=== PATIENT | female | born 1950 | race Caucasian/White ===

== ENCOUNTER 2016-10-17 09:06 | Inpatient (IN) | payer OTHER ==
[2016-10-17 09:15] VITALS: BMI 31.8
--- NOTE | 2016-10-17 09:31 | PDOC ---
History of Present Illness - General Chief Complaint: Lightheaded Stated Complaint: LOW BLOOD SUGAR, DIZZINESS Time Seen by Provider: 10/17/16 09:31 Past History - Past Medical History Allergies/Adverse Reactions: Allergies Allergy/AdvReac Type Severity Reaction Status Date / Time glimepiride Allergy Rash Verified 10/17/16 09:10 Home Medications: Ambulatory Orders Fluoxetine HCl [Prozac -] 40 mg PO DAILY 11/04/12 Metformin HCl [Glucophage] 1,000 mg PO BID 11/04/12 Simvastatin [Zocor -] 40 mg PO HS 11/04/12 Multivitamins [Multivit ([facility] Form[facility])] 1 tab PO DAILY 07/03/14 Amlodipine Besylate [Norvasc -] 5 mg PO DAILY 10/29/14 Levothyroxine [Synthroid -] 100 mcg PO DAILY@0700 #30 tablet 11/02/14 Insulin (Novolog 70/30) [Novolog Mix 70/30 Flexpen -] 6 units SQ BIDI #1 pen Warfarin Sodium [Coumadin] 4 mg PO DAILY 04/02/15 Oxycodone HCl [Roxicodone] 5 mg PO Q8H PRN #5 tablet MDD 3 05/19/16 Anemia: Yes Asthma: No Cancer: No Cardiac Disorders: No CVA: No COPD: No CHF: No Dementia: No Diabetes: No (iddm) GI Disorders: No Disorders: No HTN: Yes Hypercholesterolemia: Yes Kidney Stones: Yes Liver Disease: Yes (ENLARGED LIVER) Psychiatric Problems: Yes (ANXIETY, DEPRESSION, PANIC ATTACKS.) Suicide Attempt (Hx): No Seizures: No Thyroid Disease: No Other medical history: bilat dvt - Surgical History Abdominal Surgery: Yes (lt f.tube cyst) Appendectomy: No Cardiac Surgery: No Cholecystectomy: No Lung Surgery: No Neurologic Surgery: No Orthopedic Surgery: Yes (FOOT, KNEE) - Reproductive History Cervical CA: No Dysfunctional Uterine Bleeding: No Ectopic : No Endometrial CA: No Polycystic Ovaries: No Therapeutic (s) & number: No Tubal Ligation: No - Immunization History Immunization Up to Date: No - Psycho/Social/Smoking Cessation Hx Anxiety: No Suicidal Ideation: No Smoking Status: Yes Smoking History: Never smoked Have you smoked in the past 12 months: No Number of Cigarettes Smoked Daily: 0 If you are a former smoker, when did you quit?: 10yrs Information on smoking cessation initiated: No Hx Alcohol Use: No Drug/Substance Use Hx: No Substance Use Type: None Hx Substance Use Treatment: No *Physical Exam - Vital Signs Last Vital Signs Temp Pulse Resp BP Pulse Ox 98.1 F 82 18 152/81 95 10/17/16 09:11 10/17/16 09:11 10/17/16 09:11 10/17/16 09:11 10/17/16 09:11
--- NOTE | 2016-10-17 09:36 | PDOC ---
History of Present Illness - General Chief Complaint: Lightheaded Stated Complaint: LOW BLOOD SUGAR, DIZZINESS Time Seen by Provider: 10/17/16 09:31 - History of Present Illness Initial Comments: 10/17/16 10:24 Patient is a 65-year-old female with a history of bilateral DVTs, anemia, IDDM, hypertension, bilateral renal calculi, hypothyroidism, enlarged liver, anxiety, depression, panic attacks who presents to ED BIBA. The pt is complaining of dizziness and feeling "off balance" this morning. She put her head on the table and ask family member to call EMS. When they arrived her POC was 145. She states that she had bilateral calf pain on the way to the hospital which resolved. The pt also states that she has difficulty opening her left eye usually in AM that is present for some time. She also had severe headache yesterday, 01/29 that resolved today. The pt denies chest pain, SOB, leg pain, headache, double vision, blurred vision, dizziness, weakness, lightheadedness, LOC. The pt denies N/V, diarrhea, constipation, dysuria, increased frequency, urgency. The pt uses cane. PCP: Lana Rocha [phone] Past History - Past Medical History Allergies/Adverse Reactions: Allergies Allergy/AdvReac Type Severity Reaction Status Date / Time glimepiride Allergy Rash Verified 10/17/16 09:10 Home Medications: Ambulatory Orders Amlodipine Besylate 10 mg PO DAILY 10/17/16 Insulin Aspart Prot/Insuln Asp [Novolog Mix 70-30 Flexpen Syrn] 20 unit SQ BID 10/17/16 Lisinopril/Hydrochlorothiazide [Lisinopril-Hctz 20-12.5 mg Tab] 1 each PO DAILY 10/17/16 Metformin HCl [Metformin HCl ER] 1,000 mg PO BID 10/17/16 Warfarin Na [Coumadin] 5 mg PO DAILY 10/17/16 Anemia: Yes Asthma: No Cancer: No Cardiac Disorders: No CVA: No COPD: No CHF: No Dementia: No Diabetes: No (iddm) GI Disorders: No Disorders: No HTN: Yes Hypercholesterolemia: Yes Kidney Stones: Yes Liver Disease: Yes (ENLARGED LIVER) Psychiatric Problems: Yes (ANXIETY, DEPRESSION, PANIC ATTACKS.) Suicide Attempt (Hx): No Seizures: No Thyroid Disease: No Other medical history: bilat dvt - Surgical History Abdominal Surgery: Yes (lt f.tube cyst) Appendectomy: No Cardiac Surgery: No Cholecystectomy: No Lung Surgery: No Neurologic Surgery: No Orthopedic Surgery: Yes (FOOT, KNEE) - Reproductive History Cervical CA: No Dysfunctional Uterine Bleeding: No Ectopic : No Endometrial CA: No Polycystic Ovaries: No Therapeutic (s) & number: No Tubal Ligation: No - Immunization History Immunization Up to Date: No - Psycho/Social/Smoking Cessation Hx Anxiety: No Suicidal Ideation: No Smoking Status: Yes Smoking History: Never smoked Have you smoked in the past 12 months: No Number of Cigarettes Smoked Daily: 0 If you are a former smoker, when did you quit?: 10yrs Information on smoking cessation initiated: No Hx Alcohol Use: No Drug/Substance Use Hx: No Substance Use Type: None Hx Substance Use Treatment: No Review of Systems - Review of Systems Able to Perform ROS?: Yes Comments:: 10/17/16 10:35 REVIEW OF SYSTEMS CONSTITUTIONAL: Absent: fever, chills, diaphoresis, generalized weakness, malaise, loss of appetite, weight change HEENT: Absent: rhinorrhea, nasal congestion, throat pain, throat swelling, difficulty swallowing, mouth swelling, ear pain, eye pain, visual changes CARDIOVASCULAR: Absent: chest pain, syncope, palpitations, irregular heart rate, lightheadedness , peripheral edema RESPIRATORY: Absent: cough, shortness of breath, dyspnea with exertion, orthopnea, wheezing, stridor, hemoptysis GASTROINTESTINAL: Absent: abdominal pain, abdominal distension, nausea, vomiting, diarrhea, constipation, melena, hematochezia GENITOURINARY: Absent: dysuria, frequency, urgency, hesitancy, hematuria, flank pain, genital pain MUSCULOSKELETAL: swelling in ankles B/L Absent: myalgia, arthralgia, back pain, neck pain SKIN: Absent: rash, itching, pallor NEUROLOGIC: Absent: headache, focal weakness or paresthesias, dizziness, unsteady gait, seizure, mental status changes, bladder or bowel incontinence PSYCHIATRIC: Absent: anxiety, depression, suicidal or homicidal ideation, hallucinations. Is the patient limited Italian proficient: No *Physical Exam - Vital Signs Last Vital Signs Temp Pulse Resp BP Pulse Ox 98.1 F 82 18 152/81 95 10/17/16 09:11 10/17/16 09:11 10/17/16 09:11 10/17/16 09:11 10/17/16 09:11 - Physical Exam Comments: 10/17/16 10:33 GENERAL: The patient is awake, alert, and fully oriented, in no acute distress. HEAD: Normal with no signs of trauma. EYES: extraocular movements intact, sclera anicteric, conjunctiva clear. No ptosis. ENT: Ears normal, nares patent, oropharynx clear without exudates, moist mucous membranes. NECK: Trachea midline, full range of motion, supple. LUNGS: Breath sounds equal, clear to auscultation bilaterally, no wheezes, no crackles, no accessory muscle use. HEART: Regular rate and rhythm, S1, S2 without murmur, rub or gallop. ABDOMEN: Obese, soft, nontender, nondistended, normoactive bowel sounds, no guarding, no rebound, no masses. EXTREMITIES: 2+ pulses, warm, well-perfused,1+ edema around ankles B/L. NEUROLOGICAL: Normal speech, gait not observed. PSYCH: Normal mood, normal affect. SKIN: Warm, dry, normal turgor, no rashes. ED Treatment Course - LABORATORY CBC & Chemistry Diagram: 10/17/16 09:42 10/17/16 09:42 Medical Decision Making - Medical Decision Making 10/17/16 10:36 The pt is a 66 year old female with a significant PMH who presents complaining of dizziness and feeling unsteady. We ordered cardiac profile, CBC, CMP, UA, TSH , BGM. 10/17/16 13:01 Lab results noted: elevated AST, ALT, CK-MB and creatinine kinase, ratio is around 1%, elevated TSH. We called hospitalist and discussed the case. The pt will be admitted to inpatient telemetry for further workup. *DC/Admit/Observation/Transfer Diagnosis at time of Disposition: Syncope, Dehydration - Discharge Dispostion Condition at time of disposition: Good Admit: Yes
[2016-10-17 10:29] LABS: BASOPHIL 1.3 % (0-2.0); EOSINOPHIL 8.7 % (0-4.5); MCH 28.6 pg (25.7-33.7); MCHC 32.6 g/dl (32.0-36.0); MEAN CELL VOLUME 87.9 fl (80-96); MEAN PLT VOLUME 8.5 fl (7.5-11.1); NEUTROPHILS 44.4 % (42.8-82.8); PLATELET COUNT 293 K/MM3 (134-434); RDW 16.4 % (11.6-15.6); WHITE BLOOD COUNT 6.9 K/mm3 (4.0-10.0)
[2016-10-17 10:56] LABS: ALBUMIN 3.9 g/dl (3.4-5.0); BILIRUBIN,TOTAL 0.4 mg/dL (0.2-1.0); CALCIUM 9.1 mg/dL (8.5-10.1); CREATININE 1.2 mg/dL (0.55-1.02); TOT PROT 7.7 g/dl (6.4-8.2)
[2016-10-17 11:08] LABS: THYROID STIMULATING HORMONE 68.5 uIU/ml (0.358-3.74); TROPONIN I 0.02 ng/ml (0.00-0.05)
[2016-10-17 11:16] LABS: INR 1.27 (0.82-1.09)
[2016-10-17] MEDS ORDERED: SODIUM CHLORIDE 1,000 ML IV ONE (11:33)
--- NOTE | 2016-10-17 13:23 | EKG ---
Test Reason : Blood Pressure : / mmHG Vent. Rate : 077 BPM Atrial Rate : 077 BPM P-R Int : 192 ms QRS Dur : 084 ms QT Int : 382 ms P-R-T Axes : 036 -08 032 degrees QTc Int : 432 ms NORMAL SINUS RHYTHM NORMAL ECG WHEN COMPARED WITH ECG OF 09-NOV-2014 11:01, NO SIGNIFICANT CHANGE WAS FOUND Confirmed by SHELLEY RODRIGUEZ MD ([id number]) on 10/17/2016 1:22:53 PM Referred By: Confirmed By:SHELLEY RODRIGUEZ MD
--- NOTE | 2016-10-17 14:20 | HP ---
CHIEF COMPLAINT: Weakness, dizziness PCP: Lana Rocha [phone] HISTORY OF PRESENT ILLNESS: 66 year old female with past medical history of bilateral lower extremity DVTs, anemia, IDDM, hypertension, bilateral renal calculi, hypothyroidism, enlarged liver, anxiety, depression, panic attacks presented to the ED with complaint of weakness, fatigue, dizziness, unsteady (feeling unbalanced) for the last 2 weeks. Pt said symptoms started gradually and has not improved. Pt said she has had slurred speech for weeks/months but she eats and swallows fine. Pt c/o of numbness in hands and feet sometimes and tingling in finger tips. Pt denies any focal weakness in one arm, legs, no blurred vision or double vision. No fever, chills, no nausea or vomiting, no chest pain, palpitation or shortness of breath. C/o hair loss, constipation, loss of energy. Pt complained of burning on urination and vaginal itching. Pt complained of lower ext swelling and b/l calves pain and tenderness. ER course was notable for: (1) IV fluid Normal saline 1 liter, Labs Recent Travel: none PAST MEDICAL HISTORY: bilateral DVTs, anemia, IDDM, hypertension, bilateral renal calculi, hypothyroidism, enlarged liver, anxiety, depression, panic attacks PAST SURGICAL HISTORY: Fallopian tube surgery Social History: Smoking:former smoker 20 pack year, quit 11 year ago Alcohol: none Drugs: none Family History: none contributory Allergies glimepiride Allergy (Verified 10/17/16 09:10) Rash HOME MEDICATIONS: Home Medications Medication Instructions Recorded Amlodipine Besylate 10 mg PO DAILY 10/17/16 Insulin Aspart Prot/Insuln Asp 20 unit SQ BID 10/17/16 [Novolog Mix 70-30 Flexpen Syrn] Lisinopril/Hydrochlorothiazide 1 each PO DAILY 10/17/16 [Lisinopril-Hctz 20-12.5 mg Tab] Metformin HCl [Metformin HCl ER] 1,000 mg PO BID 10/17/16 Warfarin Na [Coumadin] 5 mg PO DAILY 10/17/16 REVIEW OF SYSTEMS CONSTITUTIONAL: generalized weakness, weight gain 14 lbs in last 2 months, Absent: fever, chills, diaphoresis, malaise, loss of appetite, weight change HEENT: Absent: rhinorrhea, nasal congestion, throat pain, throat swelling, difficulty swallowing, mouth swelling, ear pain, eye pain, visual changes CARDIOVASCULAR: peripheral edema Absent: chest pain, syncope, palpitations, irregular heart rate, lightheadedness , RESPIRATORY: Absent: cough, shortness of breath, dyspnea with exertion, orthopnea, wheezing, stridor, hemoptysis GASTROINTESTINAL: Absent: abdominal pain, abdominal distension, nausea, vomiting, diarrhea, constipation, melena, hematochezia GENITOURINARY: Absent: dysuria, frequency, urgency, hesitancy, hematuria, flank pain, genital pain MUSCULOSKELETAL: Absent: myalgia, arthralgia, joint swelling, back pain, neck pain SKIN: hair loss Absent: rash, itching, pallor HEMATOLOGIC/IMMUNOLOGIC: Absent: easy bleeding, easy bruising, lymphadenopathy, frequent infections ENDOCRINE: unexplained weight gain, hairloss Absent: unexplained weight loss, heat intolerance, cold intolerance NEUROLOGIC: Absent: headache, focal weakness or paresthesias, dizziness, unsteady gait, seizure, mental status changes, bladder or bowel incontinence PSYCHIATRIC: anxiety, Absent: depression, suicidal or homicidal ideation, hallucinations. PHYSICAL EXAMINATION GENERAL: Awake, alert, and fully oriented, in no acute distress. HEAD: Normal with no signs of trauma. EYES: Pupils equal, round and reactive to light, extraocular movements intact, sclera anicteric, conjunctiva clear. No lid lag. EARS, NOSE, THROAT: Ears normal, nares patent, oropharynx clear without exudates. Moist mucous membranes. NECK: Normal range of motion, supple without lymphadenopathy, JVD, or masses. LUNGS: Breath sounds equal, clear to auscultation bilaterally. No wheezes, and no crackles. No accessory muscle use. HEART: Regular rate and rhythm, normal S1 and S2 without murmur, rub or gallop. ABDOMEN: Obese, Soft, nontender, not distended, normoactive bowel sounds, no guarding, no rebound, no masses. No hepatomegaly or splenomegaly. MUSCULOSKELETAL: Normal range of motion at all joints. No bony deformities or tenderness. No CVA tenderness. UPPER EXTREMITIES: 2+ pulses, warm, well-perfused. No cyanosis. No clubbing. No peripheral edema. LOWER EXTREMITIES: 2+ pulses, warm, well-perfused. left calf tenderness. trace peripheral edema b/l lower ext NEUROLOGICAL: Slurred speech, Cranial nerves II-XII intact. Normal speech. Normal gait. PSYCHIATRIC: Cooperative. Good eye contact. Appropriate mood and affect. SKIN: Warm, dry, normal turgor, no rashes or lesions noted, normal capillary refill. CBC, BMP 10/17/16 09:42 10/17/16 09:42 Laboratory Tests 10/17/16 09:42 Creat Clearance w eGFR 45.23 Total Bilirubin 0.4 D AST 168 H D ALT 101 H D Alkaline Phosphatase 84 Creatine Kinase 6063 H D CK-MB (CK-2) 58.851 H Troponin I 0.02 Albumin 3.9 TSH 68.50 H ASSESSMENT/PLAN: 66 year old with presented to Ed with complaints of generalized weakness, fatigue, dizziness, unsteady for the last 2 weeks. Patient was found to have elevated CK, transaminitis, elvated TSH. Elevated CPK level likely Myositis flare r/o Rhabdomyolysis Pt has had chronically elevated CK level, seen on prior admission CK 6063 1 liter NS in ED NS at 125ml/h CMP in am f/u rheumatology as outpatient Dizziness likely from dehydration Orthostatic Vital neuro check UA IV fluid NS at 125ml/h keep in telemetry Vitals q4h Hypothyroidism TSH 68.50 Free T4, Free T3 Restart levothyroxine 150mcg po daily Vulvocandidiasis Diflucan 100mg PO Transaminitis Trend LFTS r/o DVT Pt has left calf tenderness, positive don signs US b/l lower ext Pt is on warfarin 5mg po daily for history of bilateral but non compliant Will likely substitute for Lovenox 1mg/kg q12h Diabetes Blood Sugar 161 on admission HGA1C BGM AC HS hold metformin and insulin 70/30 HTN Lisinopril-Hctz 20-12.5 mg Tab Amlodipine 10mg Po qd Anemia Hgb 11.4, close to baseline repeat in am FEN Fluid: NS at 125ml/h Electrolytes: repeat in am Nutrition: no abnormalities DVT prophylaxis: Lovenox SQ Disposition: will admit toTelemetry pending Visit type - Emergency Visit Emergency Visit: Yes ED Registration Date: 10/17/16 Care time: The patient presented to the Emergency Department on the above date and was hospitalized for further evaluation of their emergent condition. - New Patient This patient is new to me today: Yes Date on this admission: 10/19/16 - Critical Care Critical Care patient: No
[2016-10-17] MEDS: SODIUM CHLORIDE 1,000 ML IV SCH (14:41)
--- NOTE | 2016-10-17 15:05 | PN ---
Teaching Attending Note Name of Resident: Lenard Bnauelos ATTENDING PHYSICIAN STATEMENT I saw and evaluated the patient. I reviewed the resident's note and discussed the case with the resident. I agree with the resident's findings and plan as documented. SUBJECTIVE: 66 year old female that presents today c/o 2 week history of dizziness, generalized weakness and feeling '' off balance ''. In the ER noted to have elevated TSH and CPK levels. Review of records shows that she has had similar symptoms before and no cause was identified . Denies fever . OBJECTIVE: Vital Signs Temperature 98.1 F 10/17/16 09:11 Pulse Rate 64 10/17/16 12:05 Respiratory Rate 20 10/17/16 12:05 Blood Pressure 127/59 10/17/16 12:05 O2 Sat by Pulse Oximetry (%) 96 10/17/16 12:05 Abnormal Lab Results 10/17/16 10/17/16 10/17/16 09:42 09:42 Unknown RDW 16.4 H D Eosinophils % 8.7 H INR 1.27 H Creatinine 1.2 H D Random Glucose 161 H D AST 168 H D ALT 101 H D Creatine Kinase 6063 H D CK-MB (CK-2) 58.851 H TSH 68.50 H LUNGS: Breath sounds equal, clear to auscultation bilaterally. No wheezes, and no crackles. No accessory muscle use. HEART: Regular rate and rhythm, normal S1 and S2 without murmur, rub or gallop. ABDOMEN: Obese, Soft, nontender, not distended, normoactive bowel sounds, no guarding, no rebound, no masses. No hepatomegaly or splenomegaly. MUSCULOSKELETAL: Normal range of motion at all joints. No bony deformities or tenderness. No CVA tenderness. UPPER EXTREMITIES: 2+ pulses, warm, well-perfused. No cyanosis. No clubbing. No peripheral edema. LOWER EXTREMITIES: 2+ pulses, warm, well-perfused. left calf tenderness. trace peripheral edema b/l lower ext ASSESSMENT AND PLAN: 1. Generalized weakness and dizziness possibly dehydration - observe - neuro chesks - orthostatic VS - IVF - UA 2. Elevated CPK levels and LFT - chronic , fluctuating . R/o myositis, r/o CTD - hydrate IVF , monitor CR - O/P f/u
[2016-10-17] MEDS ORDERED: LEVOTHYROXINE NA 50 MCG TABLET (FP) PO ONE ×2 (15:27→16:00)
[2016-10-17] MEDS ORDERED: FLUCONAZOLE 50 MG TABLET PO ONE (16:00)
[2016-10-17 16:19] LABS: FREE T4 0.19 ng/dl (0.76-1.46)
--- NOTE | 2016-10-17 16:27 | PDOC ---
Attending Attestation - Resident Resident Name: Doris Gutiérrez - ED Attending Attestation I have performed the following: I have examined & evaluated the patient, The case was reviewed & discussed with the resident, I agree w/resident's findings & plan - HPI HPI: 10/17/16 20:35 see below - Physicial Exam PE: 10/17/16 20:35 see below - Medical Decision Making 10/17/16 20:30 66y F hx of dvts on a/c, anemia, iddm, htn, thyroid disease, presents to ED with complaint of feeling lightheaded/dizzy/off balance, she put her head down and may have synocopized. she told her friend to call EMS when they arrived. BGM was normal per EMS. pt also had complaints of leg pain which resolved by th time she was evaluated. no cp, sob, infectious complaints. pts exam unremarkble , pts labs noted for mild bump in cr, lfts, ck also elevated, --> dehydration pt was admitted for dehdyratin/syncope for hydration and further monitoring. Heart Score/ECG Review - ECG Impressions Comment:: 10/17/16 20:33 EKG performed at 10:49 Sinus rhythm, Rate of [address] changes suggestive of acute ischemia normal axis normal r wave progression
[2016-10-17] MEDS: amLODIPine BESYLATE 10 MG TABLET (FP) PO SCH (18:38)
[2016-10-17] MEDS: ENOXAPARIN NA (PORCINE) 80 MG/0.8 ML DISP.SYRIN SQ SCH (18:39)
[2016-10-17] MEDS ORDERED: HEPARIN NA (PORCINE) 5,000 UNITS/ML 1ML VIAL SQ SCH (22:00)
[2016-10-18] MEDS: SODIUM CHLORIDE 1,000 ML IV SCH (00:18)
[2016-10-18] MEDS ORDERED: ALBUTEROL SO4 0.083% IH SOL 2.5 MG/3 ML VIAL.NEB. NEB ONE (01:59)
--- NOTE | 2016-10-18 01:59 | HOSP ---
[id number] pt was c/o sob. Pt states over the last hour or so she has had a stuffy nose and has began mouth breathing and felt like she had to cough but had minimal green sputum production. Pt is saturating at 100% on 2L NC. Lungs are CTA B/L. A/P Difficulty in breathing -Alb neb, nasal spray, decreased fluids to 75ml/hr Physical Examination Vital Signs: Vital Signs Temperature 97.5 F L 10/18/16 01:56 Pulse Rate 62 10/18/16 01:56 Respiratory Rate 18 10/18/16 01:56 Blood Pressure 115/65 10/18/16 01:56 O2 Sat by Pulse Oximetry (%) 95 10/17/16 22:00 Visit type - Emergency Visit Emergency Visit: Yes ED Registration Date: 10/17/16 Care time: The patient presented to the Emergency Department on the above date and was hospitalized for further evaluation of their emergent condition. - New Patient This patient is new to me today: Yes Date on this admission: 10/19/16 - Critical Care Critical Care patient: No
[2016-10-18] MEDS ORDERED: SODIUM CHLORIDE 1,000 ML IV SCH (02:00)
[2016-10-18] MEDS: SODIUM CHLORIDE NASAL SPRAY 44 ML BOTTLE NS PRN ×2 (02:48→10:04)
[2016-10-18] MEDS: ENOXAPARIN NA (PORCINE) 80 MG/0.8 ML DISP.SYRIN SQ SCH ×2 (05:37→17:50)
[2016-10-18 09:20] LABS: ALBUMIN 3.6 g/dl (3.4-5.0); CALCIUM 8.6 mg/dL (8.5-10.1)
[2016-10-18 09:22] LABS: BILIRUBIN,TOTAL 0.4 mg/dL (0.2-1.0); CREATININE 1.1 mg/dL (0.55-1.02); TOT PROT 7.2 g/dl (6.4-8.2)
[2016-10-18 09:47] LABS: MAGNESIUM 1.7 mg/dL (1.8-2.4); PHOSPHOROUS 2.9 mg/dL (2.5-4.9)
[2016-10-18 09:59] LABS: TROPONIN I 0.02 ng/ml (0.00-0.05)
[2016-10-18] MEDS ORDERED: LISINOPRIL 20 MG TABLET (FP) PO SCH (10:00)
[2016-10-18] MEDS ORDERED: HYDROCHLOROTHIAZIDE 12.5 MG CAPSULE (FP) PO SCH (10:00)
[2016-10-18] MEDS: amLODIPine BESYLATE 10 MG TABLET (FP) PO SCH (10:04)
[2016-10-18] MEDS: INSULIN SLIDING SCALE (NOVOLOG) 1 VIAL SQ SCH ×2 (11:17→16:50)
--- NOTE | 2016-10-18 13:26 | PN ---
Teaching Attending Note Name of Resident: Lenard Banuelos ATTENDING PHYSICIAN STATEMENT I saw and evaluated the patient. I reviewed the resident's note and discussed the case with the resident. I agree with the resident's findings and plan as documented. SUBJECTIVE: seen and evaluated at the bedside OBJECTIVE: states she feels much better today and back at baseline ASSESSMENT AND PLAN: 66 year old female with past medical history of bilateral lower extremity DVTs, anemia, IDDM, hypertension, bilateral renal calculi, hypothyroidism, enlarged liver, anxiety, depression, panic attacks presented to the ED with complaint of weakness, fatigue, dizziness, unsteady (feeling unbalanced) for the last 2 weeks -states she feels much better today and back at baseline after hydration with IVF -symptoms likely due to dehydration and hypothyroidism -pt admits to being non-compliant with meds an was counselled at length -has chronically elevated CPK and LFT's which trended down; likely some form of myositis and pt is to follow up with her PMD and physician practice market manager as an outpatient
[2016-10-18 13:57] LABS: MCH 28.4 pg (25.7-33.7); MCHC 32.1 g/dl (32.0-36.0); MEAN CELL VOLUME 88.6 fl (80-96); MEAN PLT VOLUME 9.5 fl (7.5-11.1); PLATELET COUNT 297 K/MM3 (134-434); RDW 16.2 % (11.6-15.6); WHITE BLOOD COUNT 6.3 K/mm3 (4.0-10.0)
[2016-10-18 15:08] VITALS: BP 114/75; PULSE 80; TEMP 98.2
[2016-10-18 15:40] LABS: URINE APPEARANCE CLEAR; URINE BILIRUBIN NEGATIVE (NEGATIVE); URINE COLOR LTYELLOW; URINE GLUCOSE (UA) 3+ (NEGATIVE); URINE KETONE TRACE (NEGATIVE); URINE LEUK ESTERASE NEGATIVE (NEGATIVE); URINE NITRITE NEGATIVE (NEGATIVE); URINE PROTEIN NEGATIVE (NEGATIVE); URINE UROBILINOGEN NEGATIVE E.U./dl (0.2-1.0)
--- NOTE | 2016-10-18 15:51 | DS ---
Physical Exam: SUBJECTIVE: Patient seen and examined Pt is in bed, comfortable No s/s of distress No fever or chills no dizziness or confusion No focal neurological deficits OBJECTIVE: Vital Signs Period Temp Pulse Resp BP Sys/Estrada Pulse Ox Last 24 Hr 97.5 F-98.3 F 62-84 16-20 114-149/65-83 95-95 PHYSICAL EXAM GENERAL: The patient is awake, alert, and fully oriented, in no acute distress. HEAD: Normal with no signs of trauma. EYES: PERRL, extraocular movements intact, sclera anicteric, conjunctiva clear. ENT: Ears normal, nares patent, oropharynx clear without exudates, moist mucous membranes. NECK: Trachea midline, full range of motion, supple. LUNGS: Breath sounds equal, clear to auscultation bilaterally, no wheezes, no crackles, no accessory muscle use. HEART: Regular rate and rhythm, S1, S2 without murmur, rub or gallop. ABDOMEN: Soft, nontender, nondistended, normoactive bowel sounds, no guarding, no rebound, no hepatosplenomegaly, no masses. EXTREMITIES: 2+ pulses, warm, well-perfused, no edema. NEUROLOGICAL: Cranial nerves II through XII grossly intact. slurred speech, gait not observed. PSYCH: Normal mood, normal affect. SKIN: Warm, dry, normal turgor, no rashes or lesions noted. LABS Laboratory Results - last 24 hr 10/17/16 10/18/16 10/18/16 21:33 05:31 08:15 WBC 6.3 RBC 4.00 Hgb 11.4 Hct 35.4 MCV 88.6 MCHC 32.1 RDW 16.2 H Plt Count 297 MPV 9.5 D Sodium Potassium Chloride Carbon Dioxide Anion Gap BUN Creatinine Creat Clearance w eGFR POC Glucometer 125 138 Random Glucose Calcium Phosphorus Magnesium Total Bilirubin AST ALT Alkaline Phosphatase Creatine Kinase Troponin I Total Protein Albumin 10/18/16 10/18/16 10/18/16 08:15 08:15 08:15 WBC RBC Hgb Hct MCV MCHC RDW Plt Count MPV Sodium 141 Potassium 3.8 Chloride 103 Carbon Dioxide 28 Anion Gap 10 BUN 15 Creatinine 1.1 H Creat Clearance w eGFR 50.01 POC Glucometer Random Glucose 168 H Calcium 8.6 Phosphorus Cancelled 2.9 Magnesium Cancelled 1.7 L D Total Bilirubin 0.4 AST 133 H D ALT 85 H Alkaline Phosphatase 66 D Creatine Kinase 4523 H D Cancelled Troponin I 0.02 Cancelled Total Protein 7.2 Albumin 3.6 10/18/16 11:06 WBC RBC Hgb Hct MCV MCHC RDW Plt Count MPV Sodium Potassium Chloride Carbon Dioxide Anion Gap BUN Creatinine Creat Clearance w eGFR POC Glucometer 148 Random Glucose Calcium Phosphorus Magnesium Total Bilirubin AST ALT Alkaline Phosphatase Creatine Kinase Troponin I Total Protein Albumin HOSPITAL COURSE: Date of Admission:10/17/16 6 year old female with past medical history of bilateral lower extremity DVTs, anemia, IDDM, hypertension, bilateral renal calculi, hypothyroidism, enlarged liver, anxiety, depression, panic attacks presented to the ED with complaint of weakness, fatigue, dizziness, unsteady (feeling unbalanced) for the last 2 weeks. Pt said symptoms started gradually and has not improved. Pt said she has had slurred speech for weeks/months but she eats and swallows fine. Pt c/o of numbness in hands and feet sometimes and tingling in finger tips. Pt denies any focal weakness in one arm, legs, no blurred vision or double vision. No fever, chills, no nausea or vomiting, no chest pain, palpitation or shortness of breath. C/o hair loss, constipation, loss of energy. Pt complained of burning on urination and vaginal itching. Pt complained of lower ext swelling and b/l calves pain and tenderness. ER course was notable for: (1) IV fluid Normal saline 1 liter, Labs 66 year old with presented to Ed with complaints of generalized weakness, fatigue, dizziness, unsteady for the last 2 weeks. Patient was found to have elevated CK, transaminitis, elvated TSH. Pt has Elevated CPK level likely Myositis flare r/o Rhabdomyolysis, Pt has had chronically elevated CK level, seen on prior admission. CK 6063. 1 liter NS in ED. NS at 125ml/h. CK is trending down. Pt may need further work up including possible muscle biopsy. Pt will need to follow up with PCP. F/u rheumatology as outpatient. Pt had Dizziness likely from dehydration. IV fluid NS at 125ml/h. After a night of fluid resuscitation, pt felt better, no more weakness and dizziness. Pt has Hypothyroidism. TSH 68.50, Free T4 is 19, Restart levothyroxine 150mcg po daily. Pt had Vulvocandidiasis, we gave Diflucan 100mg PO once. Transaminitis, LFTs trending down, no abdominal pain, consider outpatinet hepatitis panel and GI follow up. r/o DVT. Pt had left calf tenderness, positive don signs on admission. She no longer have calf pain and or tenderness. US b/l lower ext was negative for DVT. Pt is on warfarin 5mg po daily for history of bilateral DVT. Pt is follow up with PCP to have her INR check and coumadin adjusted. Diabetes. Her blood sughar has been controlled while she is here in the hospital. Resume Home meds metformin and insulin 70/ 30. HTN. resume Lisinopril-Hctz 20-12.5 mg Tab and Amlodipine 10mg Po qd. Date of Discharge: 10/18/16 Minutes to complete discharge: 45 Discharge Summary Reason For Visit: DIZZINESS,SYNCOPE,DEHYDRATION Current Active Problems Abnormal CPK (Acute) Breast adenoma (Acute) Dehydration (Acute) Elevated creatine kinase (Acute) Syncope (Acute) Condition: Good - Instructions Diet, Activity, Other Instructions: Discharge Home resume home medication resume diabetic diet Restart levothyroxine 150mg PO daily Follow up with Primary care physician within 1 week Follow up with [employer] [facility] Dr. Lianna Bell Follow up with Dr Barksdale within 1-2 week You need to check your INR on Sunday10/23/2016 Follow up with [facility] Dr Roberts for your elevated liver enzymes Referrals: Ashok Barksdale MD [Staff Physician] - Lyn Enamorado MD [Primary Care Provider] - Lianna Bell MD [Staff Physician] - Ruthie Roberts MD [Staff Physician] - Disposition: HOME - Home Medications Comprehensive Discharge Medication List: Ambulatory Orders Amlodipine Besylate 10 mg PO DAILY 10/17/16 Insulin Aspart Prot/Insuln Asp [Novolog Mix 70-30 Flexpen Syrn] 20 unit SQ BID 10/17/16 Lisinopril/Hydrochlorothiazide [Lisinopril-Hctz 20-12.5 mg Tab] 1 each PO DAILY 10/17/16 Metformin HCl [Metformin HCl ER] 1,000 mg PO BID 10/17/16 Warfarin Na [Coumadin] 5 mg PO DAILY 10/17/16 This patient is new to me today: No Emergency Visit: Yes ED Registration Date: 10/17/16 Care time: The patient presented to the Emergency Department on the above date and was hospitalized for further evaluation of their emergent condition. Critical Care patient: No - Discharge Referral Referred to [facility] No
[2016-10-18 15:58] LABS: URINE BLOOD 1+ (NEGATIVE)
[2016-10-18 16:19] LABS: URINE MUCUS RARE; URINE RBC 2 /hpf (0-3); URINE WBC 1 /hpf (3-5)
== END 2016-10-18 18:15 | disposition home or self-care (01) | DRG 422 ==
LOC: JER 09:06 → JERBED 12:14 → J4S 18:00
PROVIDERS: ADMIT Internal Medicine; ATTEND Internal Medicine
DX: E86.0 Dehydration (principal); R55 Syncope and collapse; R42 Dizziness and giddiness; E03.9 Hypothyroidism, unspecified; R74.0 Nonspecific elevation of levels of transaminase and lactic acid dehydrogenase [LDH]; E11.9 Type 2 diabetes mellitus without complications; I10 Essential (primary) hypertension; D64.9 Anemia, unspecified; Z79.4 Long term (current) use of insulin
CPT/HCPCS: 36415; 80053; 81003; 81015; 82550; 82553; 83036; 83735; 84100; 84252; 84439; 84443; 84481; 84484; 85025; 85027; 85610; 93005; 93010; 93970-TC; 94640; 99285-25

== ENCOUNTER 2016-12-13 12:15 | Observation (INO) | payer OTHER ==
[2016-12-13 12:38] VITALS: BMI 31.8
--- NOTE | 2016-12-13 13:11 | PDOC ---
History of Present Illness - History of Present Illness Initial Comments: 12/13/16 13:13 The patient is a 66 year old female, with a significant past medical history of bilateral DVTs (on Coumadin), anemia, IDDM, hypertension, who presents to the emergency department from her PCP office for midsternal chest pain, generalized weakness for the past few days with new onset of fever 2 days ago. She describes her chest pain as pressure localized to her midsternal region. She denies pain with inspiration. She states she has been sleeping for most of the past 48 hours. She reports having a subjective fever 2 days ago and states she has been experiencing chills since. The patient also reports bilateral lower extremity swelling a couple of days ago which she states has resolved on its own. The patient admits to spending time with her grandchildren recently whom she reports have been sick recently. She denies shortness of breath, headache and dizziness. She denies nausea, vomit , diarrhea and constipation. She denies dysuria, frequency, urgency and hematuria. Allergies: glimepiride Past surgical history: laparoscopic cyst removal Social history: Pt denies toxic habits PCP -PABLO Justin ([phone]) <Angelia Hess - Last Filed: 12/13/16 15:45> <Francisca Shin - Last Filed: 12/13/16 16:00> - General Chief Complaint: Chest Pain Stated Complaint: CHEST PAIN Time Seen by Provider: 12/13/16 12:38 Past History <Angelia Hess - Last Filed: 12/13/16 15:45> - Past Medical History Anemia: Yes Asthma: No Cancer: No Cardiac Disorders: No CVA: No COPD: No CHF: No Dementia: No Diabetes: No (iddm) GI Disorders: No Disorders: No HTN: Yes Hypercholesterolemia: Yes Kidney Stones: Yes Liver Disease: Yes (ENLARGED LIVER) Psychiatric Problems: Yes (ANXIETY, DEPRESSION, PANIC ATTACKS.) Suicide Attempt (Hx): No Seizures: No Thyroid Disease: No - Surgical History Abdominal Surgery: Yes (lt f.tube cyst) Appendectomy: No Cardiac Surgery: No Cholecystectomy: No Lung Surgery: No Neurologic Surgery: No Orthopedic Surgery: Yes (FOOT, KNEE) - Reproductive History Cervical CA: No Dysfunctional Uterine Bleeding: No Ectopic : No Endometrial CA: No Polycystic Ovaries: No Therapeutic (s) & number: No Tubal Ligation: No - Immunization History Immunization Up to Date: No - Psycho/Social/Smoking Cessation Hx Anxiety: No Suicidal Ideation: No Smoking Status: Yes Smoking History: Never smoked Have you smoked in the past 12 months: No Number of Cigarettes Smoked Daily: 0 If you are a former smoker, when did you quit?: 10yrs Information on smoking cessation initiated: No Hx Alcohol Use: No Drug/Substance Use Hx: No Substance Use Type: None Hx Substance Use Treatment: No <Francisca Shin - Last Filed: 12/13/16 16:00> - Past Medical History Allergies/Adverse Reactions: Allergies Allergy/AdvReac Type Severity Reaction Status Date / Time glimepiride Allergy Rash Verified 12/13/16 12:35 Home Medications: Ambulatory Orders Amlodipine Besylate 10 mg PO DAILY 10/17/16 Insulin Aspart Prot/Insuln Asp [Novolog Mix 70-30 Flexpen Syrn] 20 unit SQ BID 10/17/16 Lisinopril/Hydrochlorothiazide [Lisinopril-Hctz 20-12.5 mg Tab] 1 each PO DAILY 10/17/16 Metformin HCl [Metformin HCl ER] 1,000 mg PO BID 10/17/16 Warfarin Na [Coumadin -] 5 mg PO DAILY 10/17/16 Levothyroxine [Synthroid -] 150 mcg PO DAILY #30 tablet 10/18/16 Atorvastatin Ca [Lipitor] 40 mg PO HS 12/13/16 Ferrous Sulfate 325 mg PO DAILY 12/13/16 Gabapentin 300 mg PO TID 12/13/16 Review of Systems - Review of Systems Able to Perform ROS?: Yes Comments:: 12/13/16 13:15 GENERAL/CONSTITUTIONAL: (+) subjective fever, chills and generalized weakness. HEAD, EYES, EARS, NOSE AND THROAT: No change in vision. No ear pain or discharge. No sore throat. CARDIOVASCULAR: (+) chest pain. No shortness of breath. RESPIRATORY: No cough, wheezing, or hemoptysis. GASTROINTESTINAL: No nausea, vomiting, diarrhea or constipation. GENITOURINARY: No dysuria, frequency, or change in urination. MUSCULOSKELETAL: No joint or muscle swelling or pain. No neck or back pain. SKIN: No rash NEUROLOGIC: No headache, vertigo, loss of consciousness, or change in strength/ sensation. ENDOCRINE: No increased thirst. No abnormal weight change. HEMATOLOGIC/LYMPHATIC: No anemia, easy bleeding, or history of blood clots. ALLERGIC/IMMUNOLOGIC: No hives or skin allergy. <Angelia Hess - Last Filed: 12/13/16 15:45> *Physical Exam - Vital Signs Last Vital Signs Temp Pulse Resp BP Pulse Ox 98.1 F 94 H 22 139/103 100 12/13/16 12:35 12/13/16 12:35 12/13/16 12:35 12/13/16 12:35 12/13/16 12:35 - Physical Exam Comments: 12/13/16 13:16 GENERAL: Awake, alert, and fully oriented, in no acute distress HEAD: No signs of trauma EYES: PERRLA, EOMI, sclera anicteric, conjunctiva clear ENT: Auricles normal inspection, hearing grossly normal, nares patent, oropharynx clear without exudates. Moist mucosa NECK: Normal ROM, supple, no lymphadenopathy, JVD, or masses LUNGS: Breath sounds equal, clear to auscultation bilaterally. No wheezes, and no crackles HEART: Regular rate and rhythm, normal S1 and S2, no murmurs, rubs or gallops ABDOMEN: Soft, nontender, normoactive bowel sounds. No guarding, no rebound. No masses EXTREMITIES: (+) bilateral lower extremity edema (nonpitting). Normal range of motion. No clubbing or cyanosis. No cords, erythema, or tenderness NEUROLOGICAL: Normal speech, AAOx3 SKIN: Warm, Dry, normal turgor, no rashes or lesions noted. <Angelia Hess - Last Filed: 12/13/16 15:45> - Vital Signs Last Vital Signs Temp Pulse Resp BP Pulse Ox 98.1 F 94 H 22 139/103 100 12/13/16 12:35 12/13/16 12:35 12/13/16 12:35 12/13/16 12:35 12/13/16 12:35 <Francisca Shin - Last Filed: 12/13/16 16:00> Heart Score/ECG Review - ECG Intrepretation Comment:: 12/13/16 13:17 ECG was read by Dr. Shin at 12:32 Impression: Normal sinus rhythm Vent Rate: 88 bpm The ECG was unchanged when compared to an ECG from 10/17/16 <Angelia Hess - Last Filed: 12/13/16 15:45> ED Treatment Course - LABORATORY CBC & Chemistry Diagram: 12/13/16 13:20 12/13/16 13:20 - RADIOLOGY Radiograph Interpretation: 12/13/16 15:32 CXR was read by Dr. Sanchez at 14:40 Impression: No acute pathology. No change of an adverse nature since 11/07/14. <Angelia Hess - Last Filed: 12/13/16 15:45> - LABORATORY CBC & Chemistry Diagram: 12/13/16 13:20 12/13/16 13:20 - RADIOLOGY Radiology Studies Ordered: Category Date Time Status CHEST PA & LAT [RAD] Stat Radiology 12/13/16 13:07 Ordered <Francisca Shin - Last Filed: 12/13/16 16:00> Medical Decision Making - Medical Decision Making 12/13/16 15:37 PABLO Houser was called at the office ([phone]) requesting for doctor to doctor consult regarding this patient. I have discussed the plan for admission of this patient and the CH[facility] SPLITTER agrees for admission to the [facility] at this time. Lana Rocha reports the patient has poor follow-up and is non-compliant with her hypothyroid medication. <Angelia Hess - Last Filed: 12/13/16 15:45> - Medical Decision Making 12/13/16 13:08 66 yo with h/o DM HTN, anemia, h/o bilat dvt on coumadin hypothyroid, here with c/o chest pain and chills, body achees. pt states had a fever 2 days ago after sick contact of neices and nephews with febrile illness. now fever resolved, has had increased sleepiness, chills aches, and now having chest pain. went to primary doctors today, told to come to ED. no couhg. no n/v no urinary complaints. has had recent leg swelling, which spont resolved. chest pain pressure like no radiation, constant, not pleuritic. on exam awake alert NAD lungs clear bilaterally heart RRR no mr/g. abd soft NT no cva tenderness. leg wwp nonpitting edema. 2+ pulses bilaterally. differential: cp, fever : infectious such as pna, viral syndrome, renal failure , pe due to h/o dvt although on coumadin will check INR. uti, plan ekg trop r/o acs, cxr ua pain control tylenol possible ct pending coumadin/ INR. <Francisca Shin - Last Filed: 12/13/16 16:00> *DC/Admit/Observation/Transfer - Attestations Scribe Attestion: 12/13/16 13:19 Documentation prepared by Angelia Hess, acting as medical surgery nurse for Francisca Shin MD, <Angelia Hess - Last Filed: 12/13/16 15:45> - Discharge Dispostion Admit: Yes <Francisca Shin - Last Filed: 12/13/16 16:00> Diagnosis at time of Disposition: Chest pain - Referrals Referrals: Nargis Pedro [Primary Care Provider] -
[2016-12-13] MEDS ORDERED: ACETAMINOPHEN 325 MG TABLET (FP) PO ONE (13:12)
[2016-12-13 13:26] LABS: MCH 29.1 pg (25.7-33.7); MCHC 33.2 g/dl (32.0-36.0); MEAN CELL VOLUME 87.8 fl (80-96); MEAN PLT VOLUME 8.9 fl (7.5-11.1); PLATELET COUNT 202 K/MM3 (134-434); RDW 15.5 % (11.6-15.6); WHITE BLOOD COUNT 7.1 K/mm3 (4.0-10.0)
[2016-12-13] MEDS ORDERED: ACETAMINOPHEN 325 MG TABLET (FP) ONE (13:48)
[2016-12-13 13:57] LABS: ALBUMIN 3.7 g/dl (3.4-5.0); CALCIUM 8.7 mg/dL (8.5-10.1); CREATININE 1.2 mg/dL (0.55-1.02)
[2016-12-13 13:58] LABS: BILIRUBIN,TOTAL 0.5 mg/dL (0.2-1.0); TOT PROT 7.5 g/dl (6.4-8.2)
[2016-12-13 14:10] LABS: TROPONIN I < 0.02 ng/ml (0.00-0.05)
[2016-12-13 14:14] LABS: INR 1.23 (0.82-1.09); PROTHROMBIN TIME (PATIENT) 13.6 SEC (9.98-11.88)
[2016-12-13 14:40] LABS: PLATELET ESTIMATE ADEQUATE (NORMAL)
--- NOTE | 2016-12-13 17:08 | HP ---
CHIEF COMPLAINT: " Central chest pain x 1 day" PCP:-PABLO Justin ([phone]) HISTORY OF PRESENT ILLNESS: Patient is a 66 year old female with siginificant past medical history of bilateral lower extremity DVTs on warfarin, anemia, IDDM, hypertension, Hyperlipidemia, bilateral renal calculi, hypothyroidism, enlarged liver, anxiety , depression, panic attacks, DUB, left adrenal mass came in to the ED with the chief complaints of central chest pain x 1 day. As per the patient, she was apparently well two days ago, when she got fever for 1 day, Tmax 102 F, associated with chills, rigors, sweating which resolved after she took tylenol. Chest pain started this morning after she ate her breakfast, a cup of coffee and a piece of toast. It started suddenly, located in the center of the chest, pressure type, 8/10 in intensity, non radiating, no aggravating or relieving factors. Never had this symptom before. Denies any sick contact, runny nose, cough, sore throat, sob, palpitations, abdominal pain, nausea or vomiting. Bowel/Bladder habit normal. No urinary symptoms. Sleep/Appetite normal. Normally walks with a cane started using it since a year after she had DVT in lower legs. Call was placed at her doctors office and faxed her recent medical records. Paper attached in the chart. ER course was notable for: (1) Afebrile, hemodynamically stable, elevated transaminitis, troponin x 1 negative (2) EKG: Normal sinus rhythm. (3) Tylenol. Recent Travel: none PAST MEDICAL HISTORY:bilateral lower extremity DVTs on warfarin, anemia, IDDM, hypertension, Hyperlipidemia, bilateral renal calculi, hypothyroidism, enlarged liver, anxiety, depression, panic attacks, DUB, left adrenal mass, PAST SURGICAL HISTORY: Stent placed in the kidney and removed in 2014 Social History: Smoking: Smoked for 10 years, 1 pack/day ; Left 10 years Alcohol: occasional Drugs: Denies Family History: Daughter was diagnosed with Leukemia at the age of 6 years; Sister has a h/o breast cancer. Father-H/O colon cancer. Allergies glimepiride Allergy (Verified 12/13/16 12:35) Rash HOME MEDICATIONS: Home Medications Medication Instructions Recorded Amlodipine Besylate 10 mg PO DAILY 10/17/16 Insulin Aspart Prot/Insuln Asp 20 unit SQ BID 10/17/16 [Novolog Mix 70-30 Flexpen Syrn] Lisinopril/Hydrochlorothiazide 1 each PO DAILY 10/17/16 [Lisinopril-Hctz 20-12.5 mg Tab] Metformin HCl [Metformin HCl ER] 1,000 mg PO BID 10/17/16 Warfarin Na [Coumadin -] 5 mg PO DAILY 10/17/16 Levothyroxine [Synthroid -] 150 mcg PO DAILY #30 tablet 10/18/16 Atorvastatin Ca [Lipitor] 40 mg PO HS 12/13/16 Ferrous Sulfate 325 mg PO DAILY 12/13/16 Gabapentin 300 mg PO TID 12/13/16 REVIEW OF SYSTEMS CONSTITUTIONAL: Present: fever, chills, diaphoresis, generalized weakness, malaise Absent: , loss of appetite, weight change HEENT: Absent: rhinorrhea, nasal congestion, throat pain, throat swelling, difficulty swallowing, mouth swelling, ear pain, eye pain, visual changes CARDIOVASCULAR: Present: chest pain, Absent: syncope, palpitations, irregular heart rate, lightheadedness, peripheral edema RESPIRATORY: Absent: cough, shortness of breath, dyspnea with exertion, orthopnea, wheezing, stridor, hemoptysis GASTROINTESTINAL: Absent: abdominal pain, abdominal distension, nausea, vomiting, diarrhea, constipation, melena, hematochezia GENITOURINARY: Absent: dysuria, frequency, urgency, hesitancy, hematuria, flank pain, genital pain MUSCULOSKELETAL: Absent: myalgia, arthralgia, joint swelling, back pain, neck pain SKIN: Absent: rash, itching, pallor HEMATOLOGIC/IMMUNOLOGIC: Absent: easy bleeding, easy bruising, lymphadenopathy, frequent infections ENDOCRINE: Absent: unexplained weight gain, unexplained weight loss, heat intolerance, cold intolerance NEUROLOGIC: Absent: headache, focal weakness or paresthesias, dizziness, unsteady gait, seizure, mental status changes, bladder or bowel incontinence PSYCHIATRIC: Absent: anxiety, depression, suicidal or homicidal ideation, hallucinations. PHYSICAL EXAMINATION GENERAL: Moderately obese female, Awake, alert, and fully oriented, in no acute distress. HEAD: Normal with no signs of trauma. EYES: Pupils equal, round and reactive to light, extraocular movements intact, sclera anicteric, conjunctiva clear. No lid lag. EARS, NOSE, THROAT: Ears normal, nares patent, oropharynx clear without exudates. Moist mucous membranes. NECK: Normal range of motion, supple without lymphadenopathy, JVD, or masses. LUNGS: Breath sounds equal, clear to auscultation bilaterally. No wheezes, and no crackles. No accessory muscle use. HEART: Regular rate and rhythm, normal S1 and S2 without murmur, rub or gallop. ABDOMEN: Soft, nontender, not distended, normoactive bowel sounds, no guarding, no rebound, no masses. No hepatomegaly or splenomegaly. MUSCULOSKELETAL: Normal range of motion at all joints. No bony deformities or tenderness. No CVA tenderness. UPPER EXTREMITIES: 2+ pulses, warm, well-perfused. No cyanosis. No clubbing. No peripheral edema. LOWER EXTREMITIES: 2+ pulses, warm, well-perfused. No calf tenderness. No peripheral edema. NEUROLOGICAL: Cranial nerves II-XII intact. Normal speech. Gait not observed. PSYCHIATRIC: Cooperative. Good eye contact. Appropriate mood and affect. SKIN: Warm, dry, normal turgor, no rashes or lesions noted, normal capillary refill. ASSESSMENT/PLAN: Patient is a 66 years old female with significant past medical history of 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 # Chest pain-R/O ACS Patient presented with Chest pressure in the center x 1 day, never had this symptom before. On arrival, patient was Afebrile, hemodynamically stable, troponin x 1 negative As per ED physician, patient was offered to do a CTA to r/o PE since she came in with chest pain and has a h/o DVT on warfarin (non compliant) but patient refused. EKG: normal Sinus rhythm CXR: no acute pathology Placed on observation in Tele Continuous cardiac monitoring Troponins second set ordered for 7:30pm today Would consider stress test as outpatient # Fever x 1 day R/O Flu; influenza swab ordered, result pending R/o UTI R/O Pneumonia Now, she is afebrile Tylenol PRN # MART Baseline creatinine 0.7 in 2014, now creatinine is 1.2 with a GFR 0.7 Likely due to dehydration Encourage PO intake. # Elevated transaminitis Previous lab record during hospitalization shows elevated liver enzymes. Patient was asked to follow up with GI as outpatient and further work up needed to be done but patient didn't follow, hepatitis panel was not done. Hepatitis panel ordered for am. Avoid hepatotoxic drugs Trend LFTs # Hypothyroidism TSH pending Continue Levothyroxine 150mcg po daily. As per patient's ASSISTANT HAIRSTYLIST (Ms. Trent) she is noncompliant. Patient mentioned she takes half of the pill because she feels very hot after taking the full dose of medication. # H/O DVT on warfarin with subtherapeutic level No calf tenderness, negative don signs US b/l lower ext ordered, result pending Pt is on warfarin 5mg po daily for history of bilateral but non compliant INR today: 1.23 # Diabetes A1c 8.3 in 11/01/2016 Blood Sugar 127 on admission Finger stick glucose monitoring hold metformin and insulin 70/30 Insulin sliding scale watch for hypoglycemic drugs # HTN continue Lisinopril-Hctz 20-12.5 mg Tab continue Amlodipine 10mg Po qd # Normocytic Anemia H/H 10.8/32.6, MCV 87.6. Patient on Iron therapy Will repeat Iron profile in am. # FEN Not on IV fluids Electrolytes to be repeated in am Diabetic diet DVT prophylaxis: On Warfarin Disposition: Observation in Telemetry. Illness, Investigation and plan of care explained to the patient. She verbalized understanding. Case discussed with Dr. Fuller. Visit type - Emergency Visit Emergency Visit: Yes ED Registration Date: 12/13/16 Care time: The patient presented to the Emergency Department on the above date and was hospitalized for further evaluation of their emergent condition. - New Patient This patient is new to me today: Yes Date on this admission: 12/13/16 - Critical Care Critical Care patient: No
[2016-12-13] MEDS ORDERED: ASPIRIN 81 MG CHEWABLE TABLETS PO ONE (17:44)
[2016-12-13] MEDS ORDERED: ASPIRIN 81 MG CHEWABLE TABLETS ONE (17:46)
[2016-12-13] MEDS ORDERED: WARFARIN NA 5 MG TABLET (UD) PO SCH (18:00)
--- NOTE | 2016-12-13 19:03 | PN ---
Teaching Attending Note Name of Resident: Lana Quezada ATTENDING PHYSICIAN STATEMENT I saw and evaluated the patient. I reviewed the resident's note and discussed the case with the resident. I agree with the resident's findings and plan as documented. SUBJECTIVE: Patient is comfortable, denies having any chest pain at this time , no shortness of breath, no nausea or vomiting. Had chest pain after having toast with butter and tea afterward developed chest pain. OBJECTIVE: Vital Signs Temperature 98.1 F 12/13/16 12:35 Pulse Rate 79 12/13/16 17:45 Respiratory Rate 22 12/13/16 17:45 Blood Pressure 142/74 12/13/16 17:45 O2 Sat by Pulse Oximetry (%) 95 12/13/16 17:45 CBCD WBC 7.1 K/mm3 (4.0-10.0) 12/13/16 13:20 RBC 3.71 M/mm3 (3.60-5.2) 12/13/16 13:20 Hgb 10.8 GM/dL (10.7-15.3) 12/13/16 13:20 Hct 32.6 % (32.4-45.2) 12/13/16 13:20 MCV 87.8 fl (80-96) 12/13/16 13:20 MCHC 33.2 g/dl (32.0-36.0) 12/13/16 13:20 RDW 15.5 % (11.6-15.6) 12/13/16 13:20 Plt Count 202 K/MM3 (134-434) D 12/13/16 13:20 MPV 8.9 fl (7.5-11.1) 12/13/16 13:20 CMP Sodium 139 mmol/L (136-145) 12/13/16 13:20 Potassium 4.3 mmol/L (3.5-5.1) 12/13/16 13:20 Chloride 102 mmol/L (98-107) 12/13/16 13:20 Carbon Dioxide 27 mmol/L (21-32) 12/13/16 13:20 Anion Gap 10 (8-16) 12/13/16 13:20 BUN 19 mg/dL (7-18) H D 12/13/16 13:20 Creatinine 1.2 mg/dL (0.55-1.02) H 12/13/16 13:20 Creat Clearance w eGFR 45.23 (>60) 12/13/16 13:20 Random Glucose 127 mg/dL (74-106) H D 12/13/16 13:20 Calcium 8.7 mg/dL (8.5-10.1) 12/13/16 13:20 Total Bilirubin 0.5 mg/dL (0.2-1.0) D 12/13/16 13:20 AST 87 U/L (15-37) H D 12/13/16 13:20 ALT 118 U/L (12-78) H D 12/13/16 13:20 Alkaline Phosphatase 121 U/L (45-117) H D 12/13/16 13:20 Total Protein 7.5 g/dl (6.4-8.2) 12/13/16 13:20 Albumin 3.7 g/dl (3.4-5.0) 12/13/16 13:20 CARDIAC ENZYMES Creatine Kinase 1293 IU/L (26-192) H D 12/13/16 13:20 Troponin I < 0.02 ng/ml (0.00-0.05) 12/13/16 13:20 Current Medications Generic Name Dose Route Start Last Admin Trade Name Freq PRN Reason Stop Dose Admin Amlodipine Besylate 10 mg 12/14/16 10:00 Norvasc - PO DAILY [facility] Atorvastatin Calcium 40 mg 12/13/16 22:00 Lipitor - PO HS [facility] Ferrous Sulfate 325 mg 12/14/16 10:00 Feosol - PO DAILY [facility] Gabapentin 300 mg 12/13/16 22:00 Neurontin - PO TID [facility] Hydrochlorothiazide 12.5 mg 12/14/16 10:00 Hctz - PO DAILY [facility] Insulin Aspart 1 vial 12/13/16 22:00 Novolog Vial Sliding Scale - SQ ACHS [facility] Protocol Levothyroxine Sodium 150 mcg 12/14/16 07:00 Synthroid - PO DAILY@0700 [facility] Lisinopril 20 mg 12/14/16 10:00 Prinivil PO DAILY [facility] Warfarin Sodium 5 mg 12/13/16 18:00 Coumadin - PO DAILY@1800 [facility] Home Medications Medication Instructions Recorded Amlodipine Besylate 10 mg PO DAILY 10/17/16 Insulin Aspart Prot/Insuln Asp 20 unit SQ BID 10/17/16 [Novolog Mix 70-30 Flexpen Syrn] Lisinopril/Hydrochlorothiazide 1 each PO DAILY 10/17/16 [Lisinopril-Hctz 20-12.5 mg Tab] Metformin HCl [Metformin HCl ER] 1,000 mg PO BID 10/17/16 Warfarin Na [Coumadin -] 5 mg PO DAILY 10/17/16 Levothyroxine [Synthroid -] 150 mcg PO DAILY #30 tablet 10/18/16 Atorvastatin Ca [Lipitor] 40 mg PO HS 12/13/16 Ferrous Sulfate 325 mg PO DAILY 12/13/16 Gabapentin 300 mg PO TID 12/13/16 EKG: normal Sinus rhythm CXR: no acute pathology Duplex of LE : negative for DVT ASSESSMENT AND PLAN: Patient is a 66 years old female with significant past medical history of 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 # Acute Chest pain-r/o ACS [id number],x2 more sets, EKG in am , echo r/o lv dysfunction. Had a hx of Rheumatic fever in her childhood was given PCN until age of 22 troponin x 1 negative. As per ED physician, patient was offered to do a CTA to r/o PE since she came in with chest pain and has a h/o DVT on warfarin (non compliant) but patient refused. On observation in Tele; stress test as outpatient; will get ECHO r/o LV dysfunction # Fever x 1 day ; influenza swab negative ;Tylenol PRN. feels better now # MART ,baseline creatinine 0.7 in 2014, now creatinine is 1.2 . Patient stated that she has hx of Kidney stones and had a stent put in in 2013 but was removed last year. will get US of kidneys r/o Stones and hydronephrosis # Elevated transaminitis Hepatitis panel ordered for am. Hold Lipitor for now. # Hypothyroidism; TSH pending continue Levoxyl # H/O DVT on warfarin with subtherapeutic level; duplex of Extremeities negative, will hold the coumadin for now. Patient is non compliant INR today: 1.23. will hold Coumadin since duplex of LE are negative # T2DM A1c 8.3 in 11/01/2016; blood Sugar 127 on admission ;Finger stick glucose monitoring ,Insulin sliding scale. hold metformin and insulin 70/30 # HTN continue Lisinopril hold Hctz 12.5 mg Tab for now, continue Amlodipine 10mg Po qd # Normocytic Anemia H/H 10.8/32.6, MCV 87.6. Patient on Iron therapy; Will repeat Iron profile in am. DVT px: Heparin sq
[2016-12-13 20:43] LABS: TROPONIN I < 0.02 ng/ml (0.00-0.05)
[2016-12-13] MEDS: GABAPENTIN 300 MG CAPSULE (FP) PO SCH (21:32)
[2016-12-13] MEDS: INSULIN SLIDING SCALE (NOVOLOG) 1 VIAL SQ SCH (21:33)
[2016-12-13] MEDS ORDERED: ATORVASTATIN CA 40 MG TABLET (FP) PO SCH (22:00)
[2016-12-14] MEDS ORDERED: ACETAMINOPHEN 325 MG TABLET (FP) PO ONE (02:11)
[2016-12-14] MEDS: GABAPENTIN 300 MG CAPSULE (FP) PO SCH (06:29)
[2016-12-14] MEDS: INSULIN SLIDING SCALE (NOVOLOG) 1 VIAL SQ SCH ×2 (06:30→12:12)
[2016-12-14] MEDS ORDERED: LEVOTHYROXINE NA 150 MCG TABLET PO SCH (07:00)
[2016-12-14 07:53] LABS: ALBUMIN 3.5 g/dl (3.4-5.0); BILIRUBIN,TOTAL 0.5 mg/dL (0.2-1.0); CALCIUM 8.3 mg/dL (8.5-10.1); CREATININE 1.2 mg/dL (0.55-1.02); TOT PROT 7.1 g/dl (6.4-8.2)
[2016-12-14 07:55] LABS: FERRITIN 344.948 ng/ml (6.9-282.5)
[2016-12-14 07:58] LABS: MCH 29.2 pg (25.7-33.7); MEAN CELL VOLUME 88.3 fl (80-96); MEAN PLT VOLUME 8.9 fl (7.5-11.1); PLATELET COUNT 200 K/MM3 (134-434); RDW 15.3 % (11.6-15.6); WHITE BLOOD COUNT 6.5 K/mm3 (4.0-10.0)
--- NOTE | 2016-12-14 08:34 | PN ---
Teaching Attending Note Name of Resident: Lana Quezada ATTENDING PHYSICIAN STATEMENT I saw and evaluated the patient. I reviewed the resident's note and discussed the case with the resident. I agree with the resident's findings and plan as documented. SUBJECTIVE: Patient is feeling better, has no complains today. OBJECTIVE: Vital Signs Temperature 98.8 F 12/14/16 06:00 Pulse Rate 72 12/14/16 06:00 Respiratory Rate 20 12/14/16 06:00 Blood Pressure 105/56 12/14/16 06:00 O2 Sat by Pulse Oximetry (%) 95 12/13/16 20:00 CBCD WBC 6.5 K/mm3 (4.0-10.0) 12/14/16 05:35 RBC 3.86 M/mm3 (3.60-5.2) 12/14/16 05:35 Hgb 11.3 GM/dL (10.7-15.3) 12/14/16 05:35 Hct 34.1 % (32.4-45.2) 12/14/16 05:35 MCV 88.3 fl (80-96) 12/14/16 05:35 MCHC 33.0 g/dl (32.0-36.0) 12/14/16 05:35 RDW 15.3 % (11.6-15.6) 12/14/16 05:35 Plt Count 200 K/MM3 (134-434) 12/14/16 05:35 MPV 8.9 fl (7.5-11.1) 12/14/16 05:35 CMP Sodium 140 mmol/L (136-145) 12/14/16 05:35 Potassium 4.5 mmol/L (3.5-5.1) 12/14/16 05:35 Chloride 104 mmol/L (98-107) 12/14/16 05:35 Carbon Dioxide 29 mmol/L (21-32) 12/14/16 05:35 Anion Gap 7 (8-16) L 12/14/16 05:35 BUN 19 mg/dL (7-18) H 12/14/16 05:35 Creatinine 1.2 mg/dL (0.55-1.02) H 12/14/16 05:35 Creat Clearance w eGFR 45.23 (>60) 12/14/16 05:35 Random Glucose 175 mg/dL (74-106) H D 12/14/16 05:35 Calcium 8.3 mg/dL (8.5-10.1) L 12/14/16 05:35 Total Bilirubin 0.5 mg/dL (0.2-1.0) 12/14/16 05:35 AST 93 U/L (15-37) H 12/14/16 05:35 ALT 119 U/L (12-78) H 12/14/16 05:35 Alkaline Phosphatase 122 U/L (45-117) H 12/14/16 05:35 Total Protein 7.1 g/dl (6.4-8.2) 12/14/16 05:35 Albumin 3.5 g/dl (3.4-5.0) 12/14/16 05:35 CARDIAC ENZYMES Creatine Kinase 1267 IU/L (26-192) H 12/13/16 19:30 Troponin I < 0.02 ng/ml (0.00-0.05) 12/13/16 19:30 Home Medications Medication Instructions Recorded Amlodipine Besylate 10 mg PO DAILY 10/17/16 Insulin Aspart Prot/Insuln Asp 20 unit SQ BID 10/17/16 [Novolog Mix 70-30 Flexpen Syrn] Lisinopril/Hydrochlorothiazide 1 each PO DAILY 10/17/16 [Lisinopril-Hctz 20-12.5 mg Tab] Metformin HCl [Metformin HCl ER] 1,000 mg PO BID 10/17/16 Warfarin Na [Coumadin -] 5 mg PO DAILY 10/17/16 Levothyroxine [Synthroid -] 150 mcg PO DAILY #30 tablet 10/18/16 Atorvastatin Ca [Lipitor] 40 mg PO HS 12/13/16 Ferrous Sulfate 325 mg PO DAILY 12/13/16 Gabapentin 300 mg PO TID 12/13/16 Laboratory Tests 12/13/16 12/13/16 12/13/16 13:20 13:20 13:26 BUN 19 H D Creatinine 1.2 H Random Glucose 127 H D Calcium Ferritin AST 87 H D ALT 118 H D Alkaline Phosphatase 121 H D Creatine Kinase 1293 H D CK-MB (CK-2) 10.245 H Troponin I < 0.02 TSH 40.50 H D 12/13/16 12/14/16 19:30 05:35 BUN 19 H Creatinine 1.2 H Random Glucose 175 H D Calcium 8.3 L Ferritin 344.948 H AST 93 H ALT 119 H Alkaline Phosphatase 122 H Creatine Kinase 1267 H CK-MB (CK-2) 11.463 H Troponin I TSH Real time examination of the kidneys demonstrates the following: The right kidney is normal in size measuring 10.2 x 5.3 x 4.6 cm. There is a small cyst measuring 1.3 cm. There is also slight prominence of the renal of pelvis. No significant hydronephrosis is identified. The left kidney is normal in size measuring 9.6 x 4.8 x 4.7 cm. There is a mild degree of left- sided hydronephrosis. A distal obstruction cannot be excluded. IMPRESSION: Mild left- sided hydronephrosis HISTORY PROVIDED: Pain and swelling bilateral lower extremities. Real time and doppler evaluation of both lower extremities demonstrates the following: There is no evidence of deep venous thrombosis within the common, deep and superficial femoral veins, as well as the popliteal and posterior tibial veins. The greater saphenous veins are also patent. These veins are fully compressible , as well. IMPRESSION: No evidence of deep venous thrombosis. 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 # Acute Chest pain-r/o by negative troponins . # Fever x 1 day ; influenza swab negative ;Tylenol PRN. feels better now # MART ,baseline creatinine 0.7 in 2014, now creatinine is 1.2 . Patient stated that she has hx of Kidney stones and had a stent put in in 2013 but was removed last year. will get US of kidneys mild hydronephrosis. will follow with Urologist as an outpatient # Elevated transaminitis Hepatitis panel ordered. Hold Lipitor for now also elevated CPK level due to Lipitor was held.s/p IVF, Patient was advised to increase Fluid intake at home. # Hypothyroidism; TSH is high, patient does not take her meds at home, suggested that she should be taking her thyroid meds # H/O DVT on warfarin with subtherapeutic level; duplex of Extremeities negative, will discontinue the coumadin # T2DM A1c 8.3 in 11/01/2016; blood Sugar 127 on admission ;continue home meds # HTN continue Lisinopril hold Hctz 12.5 mg Tab for now, continue Amlodipine 10mg Po qd # Normocytic Anemia H/H 10.8/32.6, MCV 87.6. Patient on Iron therapy; with elevated Ferritin, will discontinue Iron supplement. Repeat labs with your primary care doctor. Emphasized the importance of drinking water at least 2-3 liter per day. Also discussed with her daughter that she needs to drink water.
[2016-12-14 09:17] LABS: FREE T4 0.4 ng/dl (0.76-1.46); THYROID STIMULATING HORMONE 29.5 uIU/ml (0.358-3.74)
[2016-12-14 09:45] VITALS: TEMP 99.2
[2016-12-14] MEDS ORDERED: HYDROCHLOROTHIAZIDE 12.5 MG CAPSULE (FP) PO SCH (10:00)
[2016-12-14] MEDS ORDERED: PATIENT'S OWN MEDICATION (NON-FORMULARY) (Ferrous Sulfate [Ferrous Sulfate] 325 MG) PO SCH (10:00)
[2016-12-14] MEDS ORDERED: PATIENT'S OWN MEDICATION (NON-FORMULARY) (Lisinopril/Hydrochlorothiazide [Lisinopril-Hctz PO SCH (10:00)
[2016-12-14] MEDS ORDERED: amLODIPine BESYLATE 10 MG TABLET (FP) PO SCH (10:00)
[2016-12-14] MEDS ORDERED: FERROUS SO4 325 MG TABLET (FP) PO SCH (10:00)
[2016-12-14] MEDS ORDERED: LISINOPRIL 20 MG TABLET (FP) PO SCH (10:00)
[2016-12-14 11:20] VITALS: BP 124/58; PULSE 84
--- NOTE | 2016-12-14 11:35 | DS ---
Physical Exam: SUBJECTIVE: Patient seen and examined at bed side this morning. Complained of feeling cold and tired. Explained to the patient that it could be because she is non compliant with levothyroxine. Denies chest pain, sob, cough, palpitation , abdominal pain, nausea or vomiting. Bladder habit normal. Sleep/Appetite normal. OBJECTIVE: Vital Signs Period Temp Pulse Resp BP Sys/Estrada Pulse Ox Last 24 Hr 98.2 F-100.1 F 72-92 14-22 92-142/44-74 95-96 PHYSICAL EXAM GENERAL: Moderately obese female, Awake, alert, and fully oriented, in no acute distress. HEAD: Normal with no signs of trauma. EYES: Pupils equal, round and reactive to light, extraocular movements intact, sclera anicteric, conjunctiva clear. No lid lag. EARS, NOSE, THROAT: Ears normal, nares patent, oropharynx clear without exudates. Moist mucous membranes. NECK: Normal range of motion, supple without lymphadenopathy, JVD, or masses. LUNGS: Breath sounds equal, clear to auscultation bilaterally. No wheezes, and no crackles. No accessory muscle use. HEART: Regular rate and rhythm, normal S1 and S2 without murmur, rub or gallop. ABDOMEN: Soft, nontender, not distended, normoactive bowel sounds, no guarding, no rebound, no masses. No hepatomegaly or splenomegaly. MUSCULOSKELETAL: Normal range of motion at all joints. No bony deformities or tenderness. No CVA tenderness. UPPER EXTREMITIES: 2+ pulses, warm, well-perfused. No cyanosis. No clubbing. No peripheral edema. LOWER EXTREMITIES: 2+ pulses, warm, well-perfused. No calf tenderness. No peripheral edema. NEUROLOGICAL: Cranial nerves II-XII intact. Normal speech. Gait not observed. PSYCHIATRIC: Cooperative. Good eye contact. Appropriate mood and affect. SKIN: Warm, dry, normal turgor, no rashes or lesions noted, normal capillary refill. LABS Laboratory Results - last 24 hr 12/13/16 12/13/16 12/14/16 19:30 21:32 05:32 WBC RBC Hgb Hct MCV MCHC RDW Plt Count MPV Sodium Potassium Chloride Carbon Dioxide Anion Gap BUN Creatinine Creat Clearance w eGFR POC Glucometer 155 181 Random Glucose Calcium Ferritin Total Bilirubin AST ALT Alkaline Phosphatase Creatine Kinase 1267 H Creatine Kinase Index 0.9 CK-MB (CK-2) 11.463 H Troponin I < 0.02 Total Protein Albumin TSH Free T4 12/14/16 12/14/16 05:35 05:35 WBC 6.5 RBC 3.86 Hgb 11.3 Hct 34.1 MCV 88.3 MCHC 33.0 RDW 15.3 Plt Count 200 MPV 8.9 Sodium 140 Potassium 4.5 Chloride 104 Carbon Dioxide 29 Anion Gap 7 L BUN 19 H Creatinine 1.2 H Creat Clearance w eGFR 45.23 POC Glucometer Random Glucose 175 H D Calcium 8.3 L Ferritin 344.948 H Total Bilirubin 0.5 AST 93 H ALT 119 H Alkaline Phosphatase 122 H Creatine Kinase Creatine Kinase Index CK-MB (CK-2) Troponin I Total Protein 7.1 Albumin 3.5 TSH 29.50 H D Free T4 0.40 L D HOSPITAL COURSE: Date of Admission:12/13/16 Date of Discharge: 12/14/16 Patient is a 66 years old female with significant past medical history of 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 Chest pain-R/O ACS. Patient presented with Chest pressure in the center x 1 day , never had this symptom before.On arrival, patient was Afebrile, hemodynamically stable, troponin x 2 negative. EKG: normal Sinus rhythm. CXR: no acute pathology. Was placed on observation in Tele Continuous cardiac monitoring. Chest pain resolved. no acute events noted in the monitor overnight. Fever x 1 day. Influenza swab negative. Pneumonia ruled out. No fever during hospital stay MART: Likely due to dehydration. Encourage PO intake. Baseline creatinine 0.7 in 2014, now creatinine is 1.2 with a GFR 0.7. Elevated transaminitis. Previous lab record during hospitalization shows elevated liver enzymes. Patient was asked to follow up with GI as outpatient and further work up needed to be done but patient didn't follow, hepatitis panel was not done. Upon discharge, Lipitor stopped for two weeks and to follow up with labs outpatient and to f/up with primary in a week. Hypothyroidism. TSH high. 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 Patient mentioned she takes half of the pill because she feels very hot after taking the full dose of medication. Continued Levothyroxine 150mcg po daily and emphasized to the patient she needs to be compliant with the medicaiton. H/O DVT on warfarin with subtherapeutic level. No calf tenderness, negative don sign. US b/l lower ext ordered, negative for DVT. Hence warfarin stopped upon discharge. Diabetes. A1c 8.3 in 11/01/2016. Blood Sugar 127 on admission. Continue home medication. Hypertension: stable during hospital stay. Had hypotensive one episode, hypertensive medication was on hold just for one dose and BP normalized. continue Lisinopril-Hctz 20-12.5 mg Tab and continue Amlodipine 10mg Po qd. Monitor Blood pressure at home. Normocytic Anemia H/H 10.8/32.6, MCV 87.6. Patient on Iron therapy at home. Iron profile done, ferritin is high. Will stop Iron sulfate upon discharge. Plan of care explained to the patient. She verbalized understanding. Case seen and discussed with Dr. Fuller. Minutes to complete discharge: 45 Discharge Summary Reason For Visit: CHEST PAIN Current Active Problems Chest pain (Acute) Abnormal CPK (Chronic) Breast adenoma (Chronic) Elevated creatine kinase (Chronic) Condition: Stable - Instructions Diet, Activity, Other Instructions: You were admitted for an evaluation of chest pain to rule out acute coronary syndrome (Heart attacks). EKG was normal and cardiac enzymes were negative. Chest x-ray negative for pneumonia. Since your liver enzymes are elevated we stopped the lipitor for 2 weeks. You need to follow up with your primary doctor in a week to discuss when to start it. Also please repeat your blood work-CBC, CMP and TSH. The TSH was really high because you are not taking your thyroid medication. Please take it daily. Iron (Ferritin) level was high so we stopped Iron capsules. Duplex of the lower extremities were done which shows you do not have any DVT. So we stopped warfarin. When you visit your primary care next week, do take the papers with you given to you today. F/UP with urologist in a week (Dr. Reyna) Increase your daily fluid intake to 2-3 liter per day. Return to the Emergency Department if your symptoms worsen or if you develop any new symptoms. Referrals: Omkar Reyna MD [Staff Physician] - Nargis Pedro [Primary Care Provider] - Disposition: HOME - Home Medications Comprehensive Discharge Medication List: Ambulatory Orders Amlodipine Besylate 10 mg PO DAILY 10/17/16 Insulin Aspart Prot/Insuln Asp [Novolog Mix 70-30 Flexpen Syrn] 20 unit SQ BID 10/17/16 Lisinopril/Hydrochlorothiazide [Lisinopril-Hctz 20-12.5 mg Tab] 1 each PO DAILY 10/17/16 Metformin HCl [Metformin HCl ER] 1,000 mg PO BID 10/17/16 Levothyroxine [Synthroid -] 150 mcg PO DAILY #30 tablet 10/18/16 Gabapentin 300 mg PO TID 12/13/16 This patient is new to me today: No Emergency Visit: Yes ED Registration Date: 12/13/16 Care time: The patient presented to the Emergency Department on the above date and was hospitalized for further evaluation of their emergent condition. Critical Care patient: No - Discharge Referral Referred to [facility] Med [facility] No
--- NOTE | 2016-12-14 13:08 | EKG ---
Test Reason : Blood Pressure : / mmHG Vent. Rate : 088 BPM Atrial Rate : 088 BPM P-R Int : 196 ms QRS Dur : 084 ms QT Int : 350 ms P-R-T Axes : 041 000 036 degrees QTc Int : 423 ms NORMAL SINUS RHYTHM NORMAL ECG WHEN COMPARED WITH ECG OF 17-OCT-2016 10:49, NONSPECIFIC T WAVE ABNORMALITY NO LONGER EVIDENT IN INFERIOR LEADS Confirmed by PERNELL MORGAN MD ([id number]) on 12/14/2016 1:08:28 PM Referred By: Confirmed By:PERNELL MORGAN MD
[2016-12-15 06:09] LABS: SERUM IRON 38 ug/dL (27-139); TOTAL IRON BINDING CAPACITY 264 ug/dL (250-450); UIBC 226 ug/dL (118-369)
== END 2016-12-14 13:00 | disposition home or self-care (01) ==
LOC: JER 12:15 → JERBED 16:01 → J4W 18:00
PROVIDERS: ADMIT Internal Medicine; ATTEND Internal Medicine
DX: R07.9 Chest pain, unspecified (principal); I10 Essential (primary) hypertension; E78.5 Hyperlipidemia, unspecified; I82.409 Acute embolism and thrombosis of unspecified deep veins of unspecified lower extremity; Z79.01 Long term (current) use of anticoagulants; D64.9 Anemia, unspecified; E11.9 Type 2 diabetes mellitus without complications; Z79.4 Long term (current) use of insulin; Z87.442 Personal history of urinary calculi; R16.0 Hepatomegaly, not elsewhere classified; F41.9 Anxiety disorder, unspecified; F32.9 Major depressive disorder, single episode, unspecified; F41.0 Panic disorder [episodic paroxysmal anxiety]; Z79.84 Long term (current) use of oral hypoglycemic drugs; N17.9 Acute kidney failure, unspecified; R74.0 Nonspecific elevation of levels of transaminase and lactic acid dehydrogenase [LDH]; R50.9 Fever, unspecified; E03.9 Hypothyroidism, unspecified
CPT/HCPCS: 36415; 71020-TC; 76775-TC; 80053; 80074; 80307; 82550; 82553; 82728; 83540; 83550; 84439; 84443; 84481; 84484; 85025; 85027; 85610; 85730; 87254; 87804; 93005; 93010; 93970-TC; 99285-25; G0378

== ENCOUNTER 2018-07-04 10:57 | Inpatient (IN) | payer BC, OTHER ==
[2018-07-04] MEDS ORDERED: SODIUM CHLORIDE 1,000 ML IV STA (11:43)
[2018-07-04] MEDS ORDERED: morphine CARPU-JECT 4 MG/1 ML DISP.SYRIN IVPUSH ONE (11:43)
[2018-07-04] MEDS ORDERED: KETOROLAC TROMETHAMINE 30 MG/1 ML VIAL IVPUSH ONE (11:43)
[2018-07-04] MEDS ORDERED: ONDANSETRON 4 MG/2 ML VIAL IVPUSH ONE (11:43)
--- NOTE | 2018-07-04 11:45 | PDOC ---
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 No trauma. No hematuria or dysuria/frequency or urgency. No fever or chills, cp or sob. Constitutional: no fevers or chills. HEENT: no headache or dizziness. CVS: no cp or syncope. Resp: no sob. No cough. Abdomen: no abdominal pain, nausea or vomiting. Genitourinary: no urinary sx, hematuria. +back pain, flank pain MUSCULOSKELETAL: No joint pain and swelling.+back pain SKIN: no redness or skin changes, no discharge, no rash. No wounds. Hematologic: no easy bruising/bleeding. NEUROLOGIC: No headache, dizziness, LOC or altered mental status. No weakness, numbness or tingling. All other systems reviewed and negative, or as documented in HPI. General: in mild distress 2/2 pain, colicky HEENT: NCAT, PERRL, EOMI, clear conjunctiva, anicteric, moist mucus membranes, clear oropharynx, no oral lesions.. Neck: neck supple, FROM Resp: CTAB, normal and even respirations, no respiratory distress CVS: RRR, no murmurs, 2+ peripheral pulses throughout, no peripheral edema Abdomen: soft, NTND, +left CVAT Back: normal inspection and ROM. Left CVAT. MSK: no edema, REZA x4, ROM intact. No clubbing or cyanosis. normal bulk and tone. Neuro: alert, oriented appropriately; no focal neurologic deficits Skin: warm and well perfused, cap refill <2 sec, normal color Past History - Past Medical History Allergies/Adverse Reactions: Allergies Allergy/AdvReac Type Severity Reaction Status Date / Time glimepiride Allergy Rash Verified 12/13/16 12:35 Home Medications: Ambulatory Orders Amlodipine Besylate 10 mg PO DAILY 10/17/16 Insulin Aspart Prot/Insuln Asp [Novolog Mix 70-30 Flexpen Syrn] 20 unit SQ BID 10/17/16 Lisinopril/Hydrochlorothiazide [Lisinopril-Hctz 20-12.5 mg Tab] 1 each PO DAILY 10/17/16 Metformin HCl [Metformin HCl ER] 1,000 mg PO BID 10/17/16 Gabapentin 300 mg PO TID 12/13/16 Levothyroxine [Synthroid -] 50 mcg PO DAILY 07/04/18 Anemia: No Asthma: No Cancer: No Cardiac Disorders: No CVA: No COPD: No CHF: No DVT: Yes (left) Dementia: No Diabetes: Yes GI Disorders: No Disorders: No HTN: Yes Hypercholesterolemia: Yes Kidney Stones: Yes Liver Disease: No Psychiatric Problems: Yes (ANXIETY, DEPRESSION, PANIC ATTACKS.) Seizures: No Thyroid Disease: Yes (hypo) Other medical history: gallstones - Surgical History Abdominal Surgery: Yes (lt f.tube cyst) Appendectomy: No Cardiac Surgery: No Cholecystectomy: No Lung Surgery: No Neurologic Surgery: No Orthopedic Surgery: Yes (toe surgery) - Reproductive History Cervical CA: No Dysfunctional Uterine Bleeding: No Ectopic : No Endometrial CA: No Polycystic Ovaries: No Therapeutic (s) & number: No Tubal Ligation: No - Immunization History Immunization Up to Date: No - Suicide/Smoking/Psychosocial Hx Smoking Status: Yes Smoking History: Never smoked Have you smoked in the past 12 months: No Number of Cigarettes Smoked Daily: 0 If you are a former smoker, when did you quit?: 10yrs Hx Alcohol Use: No Drug/Substance Use Hx: No Substance Use Type: None Hx Substance Use Treatment: No *Physical Exam - Vital Signs Last Vital Signs Temp Pulse Resp BP Pulse Ox 98.2 F 81 18 154/71 98 07/04/18 11:09 07/04/18 11:09 07/04/18 11:09 07/04/18 11:09 07/04/18 11:09 Moderate Sedation - Procedure Monitoring Vital Signs: Procedure Monitoring Vital Signs Temperature 98.2 F 07/04/18 11:09 Pulse Rate 81 07/04/18 11:09 Respiratory Rate 18 07/04/18 11:09 Blood Pressure 154/71 07/04/18 11:09 O2 Sat by Pulse Oximetry (%) 98 07/04/18 11:09 ED Treatment Course - LABORATORY CBC & Chemistry Diagram: 07/04/18 12:12 07/04/18 12:12 Medical Decision Making - Medical Decision Making 07/04/18 13:16 See HPI for details DDx abdominal pain: Renal colic, ureterolithiasis, biliary colic, metabolic/ electrolyte derangements. GERD, PUD, esophageal spasm, pancreatitis, hepatitis, constipation, colitis, gastroenteritis, cholecystitis, UTI, pyelonephritis, ileus, SBO, medication side effect, hernia, appendicitis, diverticulitis Vital signs reviewed, wnl. Colicky, in pain. no fever Prior notes reviewed, including admissions, discharges and consultations. laboratory results and imaging reviewed, basic labs and lytes wnl, UA_ Coags wnl, sub therapeutic INR for goal 2-3 UA_and culture pending, came back positive with leuk esterase/wbcs, ordered for IV ceftriaxone for complicated UTI tx. ED course: IVF, analgesia with NSAIDS/morphine. On Reeval, feels much more comfortable. CT devan to eval for renal/ureteral stones, given history of stenting and multiple stones. CT devan confirms large proximal Left ureteral stone, moderate hydro nephrosis. bilateral kidney stones. urology call/cs to Dr. Doyle, may require ureteral stent for large prox/ obstructing stone. Dispo: admit for analgesia, large UPJ stone/obstruction, superimposed UTI with obstructed stone. pt agree with impression and plan.consultations. questions answered 07/04/18 14:41 07/04/18 19:38 *DC/Admit/Observation/Transfer Diagnosis at time of Disposition: Calculus of proximal left ureter, UTI (urinary tract infection) Hydronephrosis Qualifiers: Hydronephrosis type: with renal calculous obstruction Qualified Code(s): N13.2 - Hydronephrosis with renal and ureteral calculous obstruction - Discharge Dispostion Condition at time of disposition: Guarded Decision to Admit order: Yes Decision to Admit order Date/Time: 07/04/18 14:48 Decision to Admit Order Category Date Time Status Decision to Admit to Hospital Routine Admission 07/04/18 14:40 Ordered - Referrals - Patient Instructions - Post Discharge Activity
[2018-07-04] MEDS ORDERED: ONDANSETRON 4 MG/2 ML VIAL ONE (11:55)
[2018-07-04] MEDS ORDERED: KETOROLAC TROMETHAMINE 15 MG/ML VIAL ONE (11:55)
[2018-07-04] MEDS ORDERED: morphine SULFATE 4 MG/ML VIAL ONE (11:55)
[2018-07-04 12:49] LABS: BASO % 0.8 % (0-2.0); EOS % 1.7 % (0-4.5); HEMATOCRIT 36.9 % (32.4-45.2); HEMOGLOBIN 11.3 GM/dL (10.7-15.3); LYMPH % 37.1 % (8-40); MCH 25.3 pg (25.7-33.7); MCHC 30.6 g/dl (32.0-36.0); MEAN CELL VOLUME 82.6 fl (80-96); MEAN PLT VOLUME 8.2 fl (7.5-11.1); NEUT % 49.4 % (42.8-82.8); PLATELET COUNT 311 K/MM3 (134-434); RBC 4.47 M/mm3 (3.60-5.2); RDW 15.3 % (11.6-15.6); WHITE BLOOD COUNT 11.5 K/mm3 (4.0-10.0)
[2018-07-04 13:03] LABS: INR 1.44 (0.83-1.09)
[2018-07-04 13:14] LABS: ALBUMIN 3.7 g/dl (3.4-5.0); ALK PHOS 85 U/L (45-117); ANION GAP 7 MMOL/L (8-16); BILIRUBIN,TOTAL 0.8 mg/dL (0.2-1); BLOOD UREA NITROGEN 17 mg/dL (7-18); CALCIUM 9.1 mg/dL (8.5-10.1); CHLORIDE 103 mmol/L (98-107); CO2 28 mmol/L (21-32); CREATININE 0.9 mg/dL (0.55-1.3); GLUCOSE,RANDOM 92 mg/dL (74-106); SGOT/AST 22 U/L (15-37); SGPT/ALT 28 U/L (13-61); SODIUM 139 mmol/L (136-145); TOT PROT 7.3 g/dl (6.4-8.2)
[2018-07-04] MEDS ORDERED: KETOROLAC TROMETHAMINE 15 MG/ML VIAL IVPUSH PRN (14:50)
[2018-07-04] MEDS ORDERED: ONDANSETRON 4 MG/2 ML VIAL IVPUSH PRN (14:58)
--- NOTE | 2018-07-04 15:10 | HP ---
CHIEF COMPLAINT: flank pain PCP: HISTORY OF PRESENT ILLNESS: 68 year old female with PMHx of IDDM, hypertension, Hyperlipidemia, bilateral renal calculi, hypothyroidism, enlarged liver, anxiety, depression, panic attacks, DUB, left adrenal mass came in to the ED with the chief complaint acute onset left flank pain, sharp and nonradiating, 10/10 since last night.No trauma. No hematuria or dysuria/frequency or urgency. No fever or chills, cp or sob. ER course was notable for: (1)CT shows Large proximal left ureteral calculus with moderate hydronephrosis (2) (3) Recent Travel: none PAST MEDICAL HISTORY:bilateral lower extremity DVT, anemia, IDDM, hypertension, Hyperlipidemia, bilateral renal calculi, hypothyroidism, enlarged liver, anxiety , depression, panic attacks, DUB, left adrenal mass, PAST SURGICAL HISTORY: Stent placed in the kidney and removed in 2014 Social History: Smoking: quit 12 yrs ago; 10 pack year history. Alcohol: occasional Drugs: Denies Family History: Daughter was diagnosed with Leukemia at the age of 6 years; Sister has a h/o breast cancer. Father-H/O colon cancer. Allergies glimepiride Allergy (Verified 12/13/16 12:35) Rash HOME MEDICATIONS: Home Medications Medication Instructions Recorded Amlodipine Besylate 10 mg PO DAILY 10/17/16 Insulin Aspart Prot/Insuln Asp 20 unit SQ BID 10/17/16 [Novolog Mix 70-30 Flexpen Syrn] Lisinopril/Hydrochlorothiazide 1 each PO DAILY 10/17/16 [Lisinopril-Hctz 20-12.5 mg Tab] Metformin HCl [Metformin HCl ER] 1,000 mg PO BID 10/17/16 Gabapentin 300 mg PO TID 12/13/16 Levothyroxine [Synthroid -] 50 mcg PO DAILY 07/04/18 REVIEW OF SYSTEMS CONSTITUTIONAL: Absent: fever, chills, diaphoresis, generalized weakness, malaise, loss of appetite, weight change HEENT: Absent: rhinorrhea, nasal congestion, throat pain, throat swelling, difficulty swallowing, mouth swelling, ear pain, eye pain, visual changes CARDIOVASCULAR: Absent: chest pain, syncope, palpitations, irregular heart rate, lightheadedness , peripheral edema RESPIRATORY: Absent: cough, shortness of breath, dyspnea with exertion, orthopnea, wheezing, stridor, hemoptysis GASTROINTESTINAL: Absent: abdominal pain, abdominal distension, nausea, vomiting, diarrhea, constipation, melena, hematochezia GENITOURINARY: flank pain Absent: dysuria, frequency, urgency, hesitancy, hematuria,, genital pain MUSCULOSKELETAL: Absent: myalgia, arthralgia, joint swelling, back pain, neck pain SKIN: Absent: rash, itching, pallor HEMATOLOGIC/IMMUNOLOGIC: Absent: easy bleeding, easy bruising, lymphadenopathy, frequent infections ENDOCRINE: Absent: unexplained weight gain, unexplained weight loss, heat intolerance, cold intolerance NEUROLOGIC: Absent: headache, focal weakness or paresthesias, dizziness, unsteady gait, seizure, mental status changes, bladder or bowel incontinence PSYCHIATRIC: Absent: anxiety, depression, suicidal or homicidal ideation, hallucinations. PHYSICAL EXAMINATION Vital Signs - 24 hr 07/04/18 11:09 Temperature 98.2 F Pulse Rate 81 Respiratory 18 Rate Blood Pressure 154/71 O2 Sat by Pulse 98 Oximetry (%) GENERAL: Awake, alert, and fully oriented, in no acute distress. HEAD: Normal with no signs of trauma. EYES: Pupils equal, round and reactive to light, extraocular movements intact, sclera anicteric, conjunctiva clear. No lid lag. EARS, NOSE, THROAT: Ears normal, nares patent, oropharynx clear without exudates. Moist mucous membranes. NECK: Normal range of motion, supple without lymphadenopathy, JVD, or masses. LUNGS: Breath sounds equal, clear to auscultation bilaterally. No wheezes, and no crackles. No accessory muscle use. HEART: Regular rate and rhythm, normal S1 and S2 without murmur, rub or gallop. ABDOMEN: Soft, nontender, not distended, normoactive bowel sounds, no guarding, no rebound, no masses. No hepatomegaly or splenomegaly. MUSCULOSKELETAL: Normal range of motion at all joints. No bony deformities or tenderness. No CVA tenderness. UPPER EXTREMITIES: 2+ pulses, warm, well-perfused. No cyanosis. No clubbing. No peripheral edema. LOWER EXTREMITIES: 2+ pulses, warm, well-perfused. No calf tenderness. No peripheral edema. NEUROLOGICAL: Cranial nerves II-XII intact. Normal speech. Normal gait. PSYCHIATRIC: Cooperative. Good eye contact. Appropriate mood and affect. SKIN: Warm, dry, normal turgor, no rashes or lesions noted, normal capillary refill. Laboratory Results - last 24 hr 07/04/18 07/04/18 07/04/18 12:12 12:12 12:12 WBC 11.5 H RBC 4.47 Hgb 11.3 Hct 36.9 MCV 82.6 MCH 25.3 L MCHC 30.6 L RDW 15.3 Plt Count 311 MPV 8.2 Absolute Neuts (auto) 5.7 Neutrophils % 49.4 D Lymphocytes % 37.1 Monocytes % 11.0 H Eosinophils % 1.7 Basophils % 0.8 Nucleated RBC % 0 PT with INR 17.00 H INR 1.44 H PTT (Actin FS) Sodium 139 Potassium 4.0 Chloride 103 Carbon Dioxide 28 Anion Gap 7 L BUN 17 Creatinine 0.9 Creat Clearance w eGFR > 60 Random Glucose 92 Calcium 9.1 Total Bilirubin 0.8 AST 22 ALT 28 Alkaline Phosphatase 85 Total Protein 7.3 Albumin 3.7 07/04/18 12:12 WBC RBC Hgb Hct MCV MCH MCHC RDW Plt Count MPV Absolute Neuts (auto) Neutrophils % Lymphocytes % Monocytes % Eosinophils % Basophils % Nucleated RBC % PT with INR INR PTT (Actin FS) 26.6 Sodium Potassium Chloride Carbon Dioxide Anion Gap BUN Creatinine Creat Clearance w eGFR Random Glucose Calcium Total Bilirubin AST ALT Alkaline Phosphatase Total Protein Albumin IMAGING: * CT/SPIRAL- RENAL-STONE CT HISTORY PROVIDED: Left flank pain TECHNIQUE: Sequential axial images were obtained from the domes of the diaphragm through the symphysis pubis utilizing urinary tract calculi protocol. Atelectatic changes are noted at both lung bases. There is a large calcification within the proximal third of the left ureter consistent with a partially obstructing calculus. This stone measures 1.2 x 0.9 x 1.9 cm. There is a moderate degree of hydronephrosis and hydroureter associated with this stone. There is an additional 2 mm stone within the lower pole of the left kidney and 2, 3 mm calculi within the right upper collecting system. These are consistent with nonobstructing calculi. There is no evidence of right-sided hydronephrosis or obstructive uropathy. No significant abnormalities of the liver, spleen or pancreas are identified. There is a 2.2 cm left adrenal nodule. This most likely represents a benign adenoma. There is slight prominence of the right adrenal gland without a discrete mass present. There is no evidence of intra- abdominal, retroperitoneal or pelvic mass lesions, fluid collections or lymphadenopathy. There is no evidence of pneumoperitoneum, bowel obstruction or intra-abdominal abscess. There is no CT evidence of acute appendicitis or diverticulitis. There is no evidence of acute bony abnormalities. IMPRESSION: 1. Large proximal left ureteral calculus with moderate hydronephrosis. 2. Additional bilateral nephrolithiasis. 3. Left adrenal nodule. ASSESSMENT/PLAN: 68 yo F with PMHx of renal calculous, HTN, and hypothyroidism presents with flank pain and admitted for ureteral stone with hydronephrosis . Problem List - Problem (1) Calculus of proximal left ureter Assessment/Plan: * Urology consult * Sodium Chloride 0.9% @ 83 mL/HR Sodium Chloride [Normal Saline -] 1,000 ml IV * Ketorolac Tromethamine (Toradol Injection -) 15 mg IVPUSH Q6H PRN * Ondansetron HCl (Zofran Injection) 4 mg IVPUSH Q6H PRN (2) Hydronephrosis (3) HTN (hypertension) Assessment/Plan: * Amlodipine Besylate (Norvasc -) 10 mg PO DAILY * Lisinopril-Hctz 20-12.5 Mg Tab 1 each PO DAILY (4) IDDM (insulin dependent diabetes mellitus) Assessment/Plan: * ADA diet * BGM ACHS * ISS ACHS (5) DVT (deep venous thrombosis) Assessment/Plan: Will hold coumadin for possible procedure tomorrow. * Started on Heparin drip for DVT protocol. (6) Vertigo Assessment/Plan: Meclizine PRN Visit type - Emergency Visit Emergency Visit: Yes ED Registration Date: 07/04/18 Care time: The patient presented to the Emergency Department on the above date and was hospitalized for further evaluation of their emergent condition. - New Patient This patient is new to me today: Yes Date on this admission: 07/04/18 - Critical Care Critical Care patient: No
[2018-07-04] MEDS: SODIUM CHLORIDE 1,000 ML IV SCH ×2 (15:27→18:03)
--- NOTE | 2018-07-04 16:04 | PN ---
Teaching Attending Note Name of Resident: Chidi Colon ATTENDING PHYSICIAN STATEMENT I saw and evaluated the patient. I reviewed the resident's note and discussed the case with the resident. I agree with the resident's findings and plan as documented. SUBJECTIVE: Ms Moreland had severe 10/10 L flank pain prior to arrival. After receiving toradol and morphine says pain is now controlled. Denies fevers, cp, sob, n/v, or any other concerns OBJECTIVE: Gen: nad Pulm: ctab w/o w/r/r CV: rrr w/o m/r/g Abd: +bs, s/nt/nd, no flank pain noted Ext: no c/c/e ASSESSMENT AND PLAN: -admit to med surg -hydration with IVF -empiric rocephin -subtherapeutic on coumadin for history of DVTs, will start heparin gtt in expectation of urologic procedure -Urology consulted and awaiting recommendations -otherwise continue home regimen Problem List - Problems (1) Calculus of proximal left ureter Code(s): N20.1 - CALCULUS OF URETER (2) Hydronephrosis Code(s): N13.30 - UNSPECIFIED HYDRONEPHROSIS Qualifiers: Hydronephrosis type: with renal calculous obstruction Qualified Code(s): N13.2 - Hydronephrosis with renal and ureteral calculous obstruction (3) HTN (hypertension) Code(s): I10 - ESSENTIAL (PRIMARY) HYPERTENSION Qualifiers: Hypertension type: essential hypertension Qualified Code(s): I10 - Essential (primary) hypertension (4) IDDM (insulin dependent diabetes mellitus) Code(s): E11.9 - TYPE 2 DIABETES MELLITUS WITHOUT COMPLICATIONS; Z79.4 - MCFP (CURRENT) USE OF INSULIN (5) Adrenal mass, left Code(s): E27.9 - DISORDER OF ADRENAL GLAND, UNSPECIFIED (6) DVT (deep venous thrombosis) Code(s): I82.409 - ACUTE EMBOLISM AND THOMBOS UNSP DEEP VN UNSP LOWER EXTREMITY Qualifiers: DVT location: lower extremity Affected thrombotic vein of extremity: unspecified vein of extremity Chronicity: chronic Laterality: bilateral Qualified Code(s): I82.503 - Chronic embolism and thrombosis of unspecified deep veins of lower extremity, bilateral
[2018-07-04] MEDS ORDERED: HEPARIN NA (PORCINE) 5,000 UNITS/ML 1ML VIAL IVPUSH PRN ×2 (16:13)
[2018-07-04] MEDS ORDERED: MECLIZINE HCL 25 MG TABLET (FP) PO PRN (16:18)
[2018-07-04] MEDS ORDERED: HEPARIN - 25,000 UNIT in SODIUM CHLORIDE 495 ML IV SCH (16:30)
[2018-07-04 16:35] LABS: URINE APPEARANCE SLCLOUDY; URINE BILIRUBIN NEGATIVE (<2.0 mg/dL); URINE COLOR YELLOW; URINE GLUCOSE (UA) NEGATIVE (NEGATIVE); URINE KETONE NEGATIVE (NEGATIVE); URINE LEUK ESTERASE 2+ (NEGATIVE); URINE NITRITE NEGATIVE (NEGATIVE); URINE PROTEIN 1+ (NEGATIVE); URINE UROBILINOGEN NEGATIVE mg/dL (0.2-1.0)
[2018-07-04 16:49] LABS: EPI CELLS RARE /HPF (FEW); URINE MUCUS FEW
[2018-07-04] MEDS: INSULIN SLIDING SCALE (NOVOLOG) 1 VIAL SQ SCH ×2 (17:33→22:25)
[2018-07-04 17:52] VITALS: BMI 30.8
[2018-07-04] MEDS ORDERED: PT OWN MED DRAWER 7, Y5N ONE (18:37)
[2018-07-04] MEDS ORDERED: CEFTRIAXONE 1 GM in DEXTROSE 5%-WATER - 50 ML IVPB ONE (19:45)
[2018-07-04] MEDS ORDERED: HEPARIN NA (PORCINE) 5,000 UNITS/ML 1ML VIAL SQ SCH (22:00)
[2018-07-04] MEDS ORDERED: DEXTROSE 5%-WATER - 50 ML IVPB ONE (22:12)
[2018-07-04] MEDS ORDERED: cefTRIAXone SODIUM 1 GM VIAL ONE (22:12)
[2018-07-04] MEDS: GABAPENTIN 300 MG CAPSULE (FP) PO SCH (22:23)
[2018-07-05] MEDS: GABAPENTIN 300 MG CAPSULE (FP) PO SCH ×4 (06:44→22:00)
[2018-07-05] MEDS: INSULIN SLIDING SCALE (NOVOLOG) 1 VIAL SQ SCH ×4 (06:47→21:56)
[2018-07-05] MEDS ORDERED: LEVOTHYROXINE NA 50 MCG TABLET (FP) PO SCH (07:00)
[2018-07-05 07:31] LABS: BASO % 1.4 % (0-2.0); EOS % 1.8 % (0-4.5); HEMATOCRIT 36.2 % (32.4-45.2); HEMOGLOBIN 12.1 GM/dL (10.7-15.3); LYMPH % 43.4 % (8-40); MCH 27.6 pg (25.7-33.7); MCHC 33.5 g/dl (32.0-36.0); MEAN CELL VOLUME 82.3 fl (80-96); MEAN PLT VOLUME 8.9 fl (7.5-11.1); MONO % 9.1 % (3.8-10.2); NEUT % 44.3 % (42.8-82.8); PLATELET COUNT 311 K/MM3 (134-434); RDW 15.7 % (11.6-15.6)
[2018-07-05 08:07] LABS: ALBUMIN 3.2 g/dl (3.4-5.0); ALK PHOS 82 U/L (45-117); ANION GAP 7 MMOL/L (8-16); BILIRUBIN,TOTAL 0.7 mg/dL (0.2-1); BLOOD UREA NITROGEN 12 mg/dL (7-18); CALCIUM 8.4 mg/dL (8.5-10.1); CHLORIDE 106 mmol/L (98-107); CO2 27 mmol/L (21-32); CREATININE 0.9 mg/dL (0.55-1.3); GLUCOSE,RANDOM 118 mg/dL (74-106); MAGNESIUM 1.5 mg/dL (1.8-2.4); PHOSPHOROUS 3.4 mg/dL (2.5-4.9); POTASSIUM 4.1 mmol/L (3.5-5.1); SGOT/AST 19 U/L (15-37); SGPT/ALT 26 U/L (13-61); SODIUM 139 mmol/L (136-145); TOT PROT 6.9 g/dl (6.4-8.2)
[2018-07-05] MEDS: SODIUM CHLORIDE 1,000 ML IV SCH (08:16)
--- NOTE | 2018-07-05 09:24 | PN ---
Progress Note (short form) - Note Progress Note: for cystoscopy and LEFT ureteral stent placement later today
[2018-07-05] MEDS ORDERED: amLODIPine BESYLATE 10 MG TABLET (FP) PO SCH (10:00)
[2018-07-05] MEDS ORDERED: LISINOPRIL 20 MG TABLET (FP) PO SCH (10:00)
[2018-07-05] MEDS ORDERED: PATIENT'S OWN MEDICATION (NON-FORMULARY) (Lisinopril/Hydrochlorothiazide [Lisinopril-Hctz PO SCH (10:00)
[2018-07-05] MEDS ORDERED: HYDROCHLOROTHIAZIDE 12.5 MG CAPSULE (FP) PO SCH (10:00)
[2018-07-05] MEDS ORDERED: PROPOFOL 20 ML ONE (13:04)
[2018-07-05] MEDS ORDERED: MIDAZOLAM HCL 2 MG/2 ML SINGLE DOSE VIAL ONE (13:04)
[2018-07-05] MEDS ORDERED: LIDOCAINE HCL/PF 2% SDV 5ML VIAL ONE (13:04)
[2018-07-05] MEDS ORDERED: SUCCINYLCHOLINE CHLORIDE 200 MG/10 ML VIAL ONE (13:04)
[2018-07-05] MEDS ORDERED: ceFAZolin SODIUM 1 GM VIAL IVPB ONE (13:55)
[2018-07-05] MEDS ORDERED: ceFAZolin SODIUM 1 GM VIAL ONE (13:57)
[2018-07-05] MEDS ORDERED: ONDANSETRON 4 MG/2 ML VIAL IVPUSH PRN ×2 (14:20→14:32)
[2018-07-05] MEDS ORDERED: LACTATED RINGERS SOLUTION 1,000 ML IV SCH (14:30)
[2018-07-05] MEDS ORDERED: SODIUM CHLORIDE 1,000 ML IV SCH (14:32)
[2018-07-05] MEDS ORDERED: KETOROLAC TROMETHAMINE 15 MG/ML VIAL IVPUSH PRN (14:32)
[2018-07-05] MEDS ORDERED: MECLIZINE HCL 25 MG TABLET (FP) PO PRN (14:32)
[2018-07-05] MEDS ORDERED: ACETAMINOPHEN INJECTION 100 ML IVPB ONE (15:14)
[2018-07-05] MEDS ORDERED: ACETAMINOPHEN 1000 MG/100 ML VIAL (NON FORMULARY) IVPB ONE (15:15)
--- NOTE | 2018-07-05 16:56 | PN ---
Physical Exam: SUBJECTIVE: Patient seen and examined at bedside. no overnight events. No new complaints.s/p cystoscopy and stent placement. Tolerated procedure well. Denies cp, michaud, sob, abdominal pain, nausea or vomiting. OBJECTIVE: Vital Signs Period Temp Pulse Resp BP Sys/Estrada Pulse Ox Last 24 Hr 98.0 F-99.2 F 62-95 16-20 108-139/32-72 95-98 GENERAL: AAOx3, NAD HEAD: NCAT ENT: moist mucous membranes. LUNGS: CTAB, no wheezes, no crackles, no accessory muscle use. HEART: Regular rate and rhythm, S1, S2 without murmur, rub or gallop. ABDOMEN: Soft, nontender, nondistended, normoactive bowel sounds, EXTREMITIES: 2+ pulses, warm, well-perfused, no edema. NEUROLOGICAL: Cranial nerves II through XII grossly intact. Normal speech, gait not observed. PSYCH: Normal mood, normal affect. SKIN: Warm, dry, normal turgor, no rashes or lesions noted Laboratory Results - last 24 hr 07/04/18 07/04/18 07/04/18 15:45 17:31 22:25 WBC RBC Hgb Hct MCV MCH MCHC RDW Plt Count MPV Absolute Neuts (auto) Neutrophils % Lymphocytes % Monocytes % Eosinophils % Basophils % Nucleated RBC % PTT (Actin FS) Sodium Potassium Chloride Carbon Dioxide Anion Gap BUN Creatinine Creat Clearance w eGFR POC Glucometer 201 130 Random Glucose Calcium Phosphorus Magnesium Total Bilirubin AST ALT Alkaline Phosphatase Total Protein Albumin Urine WBC (Auto) 35 Urine RBC (Auto) 7 Ur Epithelial Cells Rare Urine Mucus Few 07/05/18 07/05/18 07/05/18 01:36 06:00 06:00 WBC 11.0 H RBC 4.40 Hgb 12.1 Hct 36.2 MCV 82.3 MCH 27.6 MCHC 33.5 RDW 15.7 H Plt Count 311 MPV 8.9 Absolute Neuts (auto) 4.9 Neutrophils % 44.3 Lymphocytes % 43.4 H Monocytes % 9.1 Eosinophils % 1.8 Basophils % 1.4 Nucleated RBC % 0 PTT (Actin FS) 53.3 H Sodium 139 Potassium 4.1 Chloride 106 Carbon Dioxide 27 Anion Gap 7 L BUN 12 Creatinine 0.9 Creat Clearance w eGFR > 60 POC Glucometer Random Glucose 118 H Calcium 8.4 L Phosphorus 3.4 Magnesium 1.5 L Total Bilirubin 0.7 AST 19 ALT 26 Alkaline Phosphatase 82 Total Protein 6.9 Albumin 3.2 L Urine WBC (Auto) Urine RBC (Auto) Ur Epithelial Cells Urine Mucus 07/05/18 07/05/18 06:00 06:46 WBC RBC Hgb Hct MCV MCH MCHC RDW Plt Count MPV Absolute Neuts (auto) Neutrophils % Lymphocytes % Monocytes % Eosinophils % Basophils % Nucleated RBC % PTT (Actin FS) 54.0 H Sodium Potassium Chloride Carbon Dioxide Anion Gap BUN Creatinine Creat Clearance w eGFR POC Glucometer 126 Random Glucose Calcium Phosphorus Magnesium Total Bilirubin AST ALT Alkaline Phosphatase Total Protein Albumin Urine WBC (Auto) Urine RBC (Auto) Ur Epithelial Cells Urine Mucus Active Medications Generic Name Dose Route Start Last Admin Trade Name Freq PRN Reason Stop Dose Admin Amlodipine Besylate 10 mg 07/06/18 10:00 Norvasc - PO DAILY [facility] Fentanyl 50 mcg 07/05/18 14:20 07/05/18 15:10 Sublimaze Injection - IVPUSH 50 mcg [id number] PRN Administration PAIN-PACU ORDER X 4 DOSES ONLY Gabapentin 300 mg 07/05/18 22:00 Neurontin - PO TID [facility] Lactated Ringer's 1,000 mls @ 75 mls/hr 07/05/18 14:30 Lactated Ringers Solution IV ASDIR [facility] Sodium Chloride 1,000 mls @ 83 mls/hr 07/05/18 14:32 07/05/18 16:30 Normal Saline - IV 0 mls ASDIR LETY Administration Insulin Aspart 1 vial 07/05/18 16:30 07/05/18 16:49 Novolog Vial Sliding Scale - SQ Not Given ACHS [facility] Protocol Ketorolac Tromethamine 15 mg 07/05/18 14:32 Toradol Injection - IVPUSH 07/09/18 14:49 Q6H PRN PAIN LEVEL 6-10 Levothyroxine Sodium 50 mcg 07/06/18 07:00 Synthroid - PO DAILY@0700 LETY Meclizine HCl 25 mg 07/05/18 14:32 Antivert - PO Q6H PRN VERTIGO Ondansetron HCl 4 mg 07/05/18 14:32 Zofran Injection IVPUSH Q6H PRN NAUSEA ASSESSMENT/PLAN: 68 yo F with PMHx of renal calculous, HTN, and hypothyroidism presents with flank pain and admitted for ureteral stone with hydronephrosis . Problem List - Problems (1) Calculus of proximal left ureter Assessment/Plan: s/p cystoscopy and stent placement today. * Urology * Sodium Chloride 0.9% @ 83 mL/HR Sodium Chloride [Normal Saline -] 1,000 ml IV * Ketorolac Tromethamine (Toradol Injection -) 15 mg IVPUSH Q6H PRN * Ondansetron HCl (Zofran Injection) 4 mg IVPUSH Q6H PRN (2) Hydronephrosis (3) HTN (hypertension) Assessment/Plan: * Amlodipine Besylate (Norvasc -) 10 mg PO DAILY * Lisinopril-Hctz 20-12.5 Mg Tab 1 each PO DAILY (4) IDDM (insulin dependent diabetes mellitus) Assessment/Plan: * ADA diet * BGM ACHS * ISS ACHS (5) DVT (deep venous thrombosis) Assessment/Plan: Will hold coumadin for possible procedure tomorrow. * Started on Heparin drip for DVT protocol. (6) Vertigo Assessment/Plan: Meclizine PRN Visit type - Emergency Visit Emergency Visit: Yes ED Registration Date: 07/04/18 Care time: The patient presented to the Emergency Department on the above date and was hospitalized for further evaluation of their emergent condition. - New Patient This patient is new to me today: No - Critical Care Critical Care patient: No
--- NOTE | 2018-07-05 17:08 | PN ---
Teaching Attending Note Name of Resident: Chidi Colon ATTENDING PHYSICIAN STATEMENT I saw and evaluated the patient. I reviewed the resident's note and discussed the case with the resident. I agree with the resident's findings and plan as documented. SUBJECTIVE: Ms Moreland is comfortable today with minimal flank pain. No cp, sob, n/v. OBJECTIVE: Gen: nad Pulm: ctab w/o w/r/r CV: rrr w/o m/r/g Abd: +bs, s/nt/nd Ext: no c/c/e ASSESSMENT AND PLAN: -patient s/p cystoscopy and L ureteral stent -safe to restart anticoagulation -start lovenox tonight for bridging -restart coumadin tomorrow -continue IVF currently -continue current regimen Problem List - Problems (1) Calculus of proximal left ureter Code(s): N20.1 - CALCULUS OF URETER (2) Hydronephrosis Code(s): N13.30 - UNSPECIFIED HYDRONEPHROSIS Qualifiers: Hydronephrosis type: with renal calculous obstruction Qualified Code(s): N13.2 - Hydronephrosis with renal and ureteral calculous obstruction (3) HTN (hypertension) Code(s): I10 - ESSENTIAL (PRIMARY) HYPERTENSION Qualifiers: Hypertension type: essential hypertension Qualified Code(s): I10 - Essential (primary) hypertension (4) IDDM (insulin dependent diabetes mellitus) Code(s): E11.9 - TYPE 2 DIABETES MELLITUS WITHOUT COMPLICATIONS; Z79.4 - SKILLED NURSING (CURRENT) USE OF INSULIN (5) Adrenal mass, left Code(s): E27.9 - DISORDER OF ADRENAL GLAND, UNSPECIFIED (6) DVT (deep venous thrombosis) Code(s): I82.409 - ACUTE EMBOLISM AND THOMBOS UNSP DEEP VN UNSP LOWER EXTREMITY Qualifiers: DVT location: lower extremity Affected thrombotic vein of extremity: unspecified vein of extremity Chronicity: chronic Laterality: bilateral Qualified Code(s): I82.503 - Chronic embolism and thrombosis of unspecified deep veins of lower extremity, bilateral
[2018-07-05] MEDS: ENOXAPARIN NA (PORCINE) 80 MG/0.8 ML DISP.SYRIN SQ SCH (17:43)
[2018-07-05] MEDS ORDERED: GLYCERIN 1 RECTAL SUPPOSITORY, ADULT RC ONE ×2 (21:15→22:15)
[2018-07-05] MEDS: POLYETHYLENE GLYCOL 3350 119 GM BTL PO SCH (21:56)
[2018-07-05] MEDS: DOCUSATE SODIUM 100 MG CAPSULE (FP) PO SCH (21:56)
[2018-07-06] MEDS: GABAPENTIN 300 MG CAPSULE (FP) PO SCH (05:36)
[2018-07-06] MEDS: ENOXAPARIN NA (PORCINE) 80 MG/0.8 ML DISP.SYRIN SQ SCH (05:49)
[2018-07-06] MEDS: INSULIN SLIDING SCALE (NOVOLOG) 1 VIAL SQ SCH (06:00)
[2018-07-06] MEDS ORDERED: LEVOTHYROXINE NA 50 MCG TABLET (FP) PO SCH (07:00)
[2018-07-06 07:08] LABS: BASO % 0.7 % (0-2.0); EOS % 2.5 % (0-4.5); HEMATOCRIT 33.9 % (32.4-45.2); HEMOGLOBIN 11.3 GM/dL (10.7-15.3); LYMPH % 36.7 % (8-40); MCH 27.5 pg (25.7-33.7); MCHC 33.2 g/dl (32.0-36.0); MEAN CELL VOLUME 82.6 fl (80-96); MEAN PLT VOLUME 8.9 fl (7.5-11.1); MONO % 9.4 % (3.8-10.2); NEUT % 50.7 % (42.8-82.8); PLATELET COUNT 290 K/MM3 (134-434); RBC 4.11 M/mm3 (3.60-5.2); RDW 15.6 % (11.6-15.6); WHITE BLOOD COUNT 8.6 K/mm3 (4.0-10.0)
[2018-07-06 07:59] LABS: ALBUMIN 3.1 g/dl (3.4-5.0); ALK PHOS 93 U/L (45-117); ANION GAP 6 MMOL/L (8-16); BILIRUBIN,TOTAL 0.4 mg/dL (0.2-1); BLOOD UREA NITROGEN 17 mg/dL (7-18); CALCIUM 8.3 mg/dL (8.5-10.1); CHLORIDE 107 mmol/L (98-107); CO2 26 mmol/L (21-32); CREATININE 0.9 mg/dL (0.55-1.3); GLUCOSE,RANDOM 152 mg/dL (74-106); POTASSIUM 4.2 mmol/L (3.5-5.1); SGOT/AST 30 U/L (15-37); SGPT/ALT 30 U/L (13-61); SODIUM 139 mmol/L (136-145); TOT PROT 6.8 g/dl (6.4-8.2)
--- NOTE | 2018-07-06 08:05 | DS ---
Physical Examination Vital Signs: Vital Signs Temperature 37.1 C 07/06/18 06:00 Pulse Rate 71 07/06/18 06:00 Respiratory Rate 20 07/06/18 06:00 Blood Pressure 136/57 L 07/06/18 06:00 O2 Sat by Pulse Oximetry (%) 95 07/05/18 20:22 Constitutional: Yes: Well Nourished, No Distress, Calm Cardiovascular: Yes: Regular Rate and Rhythm. No: Gallop, Murmur, Rub Respiratory: Yes: Regular, CTA Bilaterally. No: Rales, Rhonchi, Wheezes Gastrointestinal: Yes: Normal Bowel Sounds, Soft. No: Distention, Tenderness Extremities: Yes: WNL Edema: No Labs: CBC, BMP 07/06/18 06:00 07/06/18 06:00 Discharge Summary Reason For Visit: HYDRONEPHROSIS/CALCULUS OF PROXIMAL LEFT URETER Current Active Problems Adrenal mass, left (Acute) Calculus of proximal left ureter (Acute) DVT (deep venous thrombosis) (Acute) HTN (hypertension) (Acute) Hydronephrosis (Acute) IDDM (insulin dependent diabetes mellitus) (Acute) Vertigo (Acute) Urinary tract infection (Chronic) Hospital Course: Ms Moreland is a very pleasant 68 year old female who came in with L flank pain and was found to have obstructing nephrolithiasis and hydronephrosis. She has history of DVTs so her coumadin was held. She was placed on a heparin gtt and urology was consulted. Her pain was controlled with ketorolac, she was given empiric rocephin, and hydrated with IVF. Dr Doyle saw the patient and she underwent cystoscopy with stent placement. Her anticoagulation was restarted after stent placement per urology and she did not have hematuria. She is currently pain free and says she is ready to go home. She is currently safe for discharge. She does not know her current dose of coumadin secondary to it being lowered recently so it is not included on her discharge medication list, HOWEVER PATIENT IS DISCHARGED ON HER HOME DOSE OF COUMADIN and she was instructed to restart this. She will also be prescribed a 7 day course of lovenox to bridge her back to a therapeutic INR since she is currently subtherapeutic. She is to follow up with her PCP on Sunday with an INR check for further adjustment of her coumadin and recommendations on stopping or continuing lovenox bridge. Patient was made aware of this, and even though did not desire to use lovenox understands it importance and agrees to using it until she is therapeutic on her coumadin. 38 minutes spent in preparation of this discharge Condition: Good - Instructions Diet, Activity, Other Instructions: Resume previous diet and activity. Restart coumadin at previous dose. Follow up with PCP on Sunday for INR check and further adjustment of coumadin. Will discharge on lovenox to bridge to therapeutic INR. Referrals: Kobe Lopez MD [Primary Care Provider] - Axel Doyle MD [Staff Physician] - Disposition: HOME - Home Medications Comprehensive Discharge Medication List: Ambulatory Orders Amlodipine Besylate 10 mg PO DAILY 10/17/16 Insulin Aspart Prot/Insuln Asp [Novolog Mix 70-30 Flexpen Syrn] 20 unit SQ BID 10/17/16 Lisinopril/Hydrochlorothiazide [Lisinopril-Hctz 20-12.5 mg Tab] 1 each PO DAILY 10/17/16 Metformin HCl [Metformin HCl ER] 1,000 mg PO BID 10/17/16 Gabapentin 300 mg PO TID 12/13/16 Levothyroxine [Synthroid -] 50 mcg PO DAILY 07/04/18 Enoxaparin [Lovenox -] 80 mg SQ BID@0600,1800 #14 disp.syrin 07/06/18
[2018-07-06] MEDS: DOCUSATE SODIUM 100 MG CAPSULE (FP) PO SCH (09:57)
[2018-07-06] MEDS: POLYETHYLENE GLYCOL 3350 119 GM BTL PO SCH (09:57)
[2018-07-06] MEDS ORDERED: amLODIPine BESYLATE 10 MG TABLET (FP) PO SCH (10:00)
[2018-07-06 10:21] VITALS: BP 142/83; PULSE 89; TEMP 99.2
--- NOTE | 2018-07-06 14:59 | OP ---
DATE OF OPERATION: 07/05/2018 PREOPERATIVE DIAGNOSIS: Left obstructing ureteral calculus. POSTOPERATIVE DIAGNOSIS: Left obstructing ureteral calculus. PROCEDURE: Cystoscopy, left retrograde pyelogram, left ureteral stent placement. SURGEON: Axel Doyle MD ANESTHESIOLOGIST: Triny Phillip MD ANESTHESIA: General. FINDING: Obstructed stone in the mid portion of the left ureter with proximal hydronephrosis. DRAINS: A 6 x 24 double-J ureteral stent. PREOPERATIVE INDICATIONS: The patient is a 68-year-old female who comes in with left-sided renal colic. CT scan reveals a 1.5-cm stone in mid ureter. Severe hydronephrosis. She comes to the OR for stent placement. DESCRIPTION OF PROCEDURE: The patient was brought to the OR, placed on the table in the supine position, given general anesthesia with IV antibiotics, and placed in the modified lithotomy position. The groin was prepped and draped sterilely. Cystoscopy was performed. The left UO was visualized. A wire was passed up into the left kidney. The stone was visualized on fluoroscopy, and this wire was placed around it. An open-end catheter was used for retrograde pyelogram, which revealed a severe hydronephrotic kidney with hydroureter down to this large stone. Over the remaining wire, a 6 x 24 double-J ureteral stent was placed, one loop seen in the kidney and one loop in the bladder. The bladder was emptied. The patient was woken up. AXEL DOYLE M.D. [id number]
== END 2018-07-06 10:59 | disposition home or self-care (01) | DRG 661 ==
LOC: JER 10:57 → JERBED 14:40 → J8W 17:01
PROVIDERS: ADMIT Internal Medicine; ATTEND Internal Medicine
PROC: 0T778DZ Dilation of Left Ureter with Intraluminal Device, Via Natural or Artificial Opening Endoscopic (ICD-10-PCS; principal; 2018-07-05 13:30)
PROC: BT1FYZZ Fluoroscopy of Left Kidney, Ureter and Bladder using Other Contrast (ICD-10-PCS; 2018-07-05 13:30)
DX: N13.2 Hydronephrosis with renal and ureteral calculous obstruction (principal); D64.9 Anemia, unspecified; E11.9 Type 2 diabetes mellitus without complications; I10 Essential (primary) hypertension; E78.5 Hyperlipidemia, unspecified; E03.9 Hypothyroidism, unspecified; Z86.718 Personal history of other venous thrombosis and embolism; F41.9 Anxiety disorder, unspecified; F32.9 Major depressive disorder, single episode, unspecified; F41.0 Panic disorder [episodic paroxysmal anxiety]; Z79.4 Long term (current) use of insulin; R16.0 Hepatomegaly, not elsewhere classified; Z79.01 Long term (current) use of anticoagulants; R42 Dizziness and giddiness; E27.9 Disorder of adrenal gland, unspecified
CPT/HCPCS: 36415; 74176; 80053; 81003; 81015; 82962; 83735; 84100; 85025; 85610; 85730; 87086; 94760; 99283-25; J0131; J1644; J7030

== ENCOUNTER 2018-09-03 15:55 | Emergency (ER) | payer BC, OTHER ==
[2018-09-03 16:45] VITALS: BP 127/60; PULSE 82; TEMP 98.2; BMI 30.1
--- NOTE | 2018-09-03 16:58 | PDOC ---
History of Present Illness - General Chief Complaint: Vaginal Sxs Stated Complaint: VAGINAL BLEEDING Time Seen by Provider: 09/03/18 16:57 - History of Present Illness Initial Comments: 09/03/18 17:32 68 yr old woman with HTN, DMII, nephrolithiasis s/p renal stent, DUB, anxeity, hx of DVTs on AC presented for left flank pain radiating down to her pelvis a/w hematuria for 3 days. pain is worse with movement, improved by lying down on her right side. she was seen by her urologist today for routine follow-up and learned that her ureteral stent was still in place. pain in the office was 10/ said she told the dr about the hematuria and the pain and was sent home with f/u on Sunday for procedure, she thinks it is to remove the stent. At home she called her sister who spoke with the urologist and the urologist called her back to present to the ED. Recently started seeing Dr. Lopez who changed her medications, she is not sure if she is still on warfarin. Past History - Past Medical History Allergies/Adverse Reactions: Allergies Allergy/AdvReac Type Severity Reaction Status Date / Time glimepiride Allergy Rash Verified 09/03/18 16:44 Home Medications: Ambulatory Orders Amlodipine Besylate 10 mg PO DAILY 10/17/16 Insulin Aspart Prot/Insuln Asp [Novolog Mix 70-30 Flexpen Syrn] 20 unit SQ BID 10/17/16 metFORMIN HCL [Metformin ER Osmotic] 1,000 mg PO BID 10/17/16 Gabapentin 300 mg PO TID 12/13/16 Levothyroxine [Synthroid -] 50 mcg PO DAILY 07/04/18 Warfarin Sodium 5 mg PO 09/03/18 Anemia: No Asthma: No Cancer: No Cardiac Disorders: No CVA: No COPD: No CHF: No DVT: Yes (left) Dementia: No Diabetes: Yes GI Disorders: No Disorders: No HTN: Yes Hypercholesterolemia: Yes Kidney Stones: Yes Liver Disease: No Psychiatric Problems: Yes (ANXIETY, DEPRESSION, PANIC ATTACKS.) Seizures: No Thyroid Disease: Yes (hypo) - Surgical History Abdominal Surgery: Yes (lt f.tube cyst) Appendectomy: No Cardiac Surgery: No Cholecystectomy: No Lung Surgery: No Neurologic Surgery: No Orthopedic Surgery: Yes (toe surgery) - Reproductive History Cervical CA: No Dysfunctional Uterine Bleeding: No Ectopic : No Endometrial CA: No Polycystic Ovaries: No Therapeutic (s) & number: No Tubal Ligation: No - Immunization History Immunization Up to Date: No - Suicide/Smoking/Psychosocial Hx Smoking Status: Yes Smoking History: Never smoked Have you smoked in the past 12 months: No Number of Cigarettes Smoked Daily: 0 If you are a former smoker, when did you quit?: 10yrs Information on smoking cessation initiated: No Hx Alcohol Use: No Drug/Substance Use Hx: No Substance Use Type: None Hx Substance Use Treatment: No Review of Systems - Review of Systems Constitutional: No: Fever Respiratory: No: Cough, SOB at Rest ABD/GI: No: Abdominal Distended, Constipated, Diarrhea, Nausea, Vomiting : Yes: Flank Pain, Hematuria. No: Dysuria Neurological: No: Headache, Tremors, Weakness *Physical Exam - Vital Signs Last Vital Signs Temp Pulse Resp BP Pulse Ox 98.2 F 82 16 127/60 100 09/03/18 16:00 09/03/18 16:00 09/03/18 16:00 09/03/18 16:00 09/03/18 16:00 - Physical Exam General Appearance: Yes: Appropriately Dressed, Apparent Distress HEENT: positive: EOMI, SATINDER Neck: positive: Trachea midline, Normal Thyroid, Supple Respiratory/Chest: positive: Lungs Clear, Normal Breath Sounds Cardiovascular: positive: Regular Rhythm, Regular Rate Gastrointestinal/Abdominal: positive: Normal Bowel Sounds. negative: Guarding, Rebound Musculoskeletal: positive: CVA Tenderness (L) Neurologic: positive: Fully Oriented, Alert Moderate Sedation - Procedure Monitoring Vital Signs: Procedure Monitoring Vital Signs Temperature 98.2 F 09/03/18 16:00 Pulse Rate 82 09/03/18 16:00 Respiratory Rate 16 09/03/18 16:00 Blood Pressure 127/60 09/03/18 16:00 O2 Sat by Pulse Oximetry (%) 100 09/03/18 16:00 ED Treatment Course - LABORATORY CBC & Chemistry Diagram: 09/03/18 18:00 09/03/18 18:00 Medical Decision Making - Medical Decision Making 09/03/18 18:00 confirmed pt's medications with [facility], recent rx for warfarin 5mg on 08/20/2018. metformin 1gm po bid, synthroid 50mcg po daily, novolog 20unit sq bid, gabapentin 300mg po tid, norvac 10mg po dialy will check cbc for anemia, inr for subtherapeutic/supratherapatic levels and BMP to check for Bun/Cr levels for any renal dysfunction, urinalysis for any blood. call placed to Dr. Voss's service for clarification of plan. dr. cruz is oncall. left my cell phone for call back 09/03/18 18:21 U/a appears yellow on gross examination at bedside 09/03/18 18:[address] Cruz, if pt has normal labs, no fever she can follow-up as outpatient. it is possible to have a stent placed for extended period of time. 09/03/18 19:02 cbc with no leucocytosis, h/h normal. INR is 1.90, pending BMP and U/A. signout given to Dr. Goodrich for follow-up on remaining labs and disposition. *DC/Admit/Observation/Transfer Diagnosis at time of Disposition: Flank pain - Referrals Referrals: Kobe Lopez MD [Primary Care Provider] - - Patient Instructions - Post Discharge Activity
--- NOTE | 2018-09-03 18:05 | PDOC ---
Attending Attestation - HPI HPI: This patient is a 68 year old female with PMHx of HTN, DMII, nephrolithiasis s/ p renal stent, DUB, anxiety, DVTs on anticoagulant who was BIBA and presents for 3 days left flank pain radiating down to her pelvis with associated hematuria. She states pain is worse with movement, improved by lying down on her right side. She has a f/u with her urologist on Sunday for uretal stent removal. PCP: Kobe Lopez 09/03/18 18:05 - Physicial Exam PE: GENERAL: Well-appearing, well-nourished. No apparent distress. HEENT: Normocephalic, atraumatic. PERRL, EOM intact. CARDIOVASCULAR: Normal S1, S2. Regular rate and rhythm. PULMONARY: Clear to auscultation bilaterally. ABDOMEN: Soft, non-distended, non-tender. EXTREMITIES: Normal ROM in all four extremities. No gross deformities. SKIN: Warm, dry. No rash NEUROLOGICAL: No focal neurological deficits. 09/03/18 18:06 <Savi Guthrie - Last Filed: 09/03/18 18:06> - Resident Resident Name: Martin Rivas - ED Attending Attestation I have performed the following: I have examined & evaluated the patient, The case was reviewed & discussed with the resident, I agree w/resident's findings & plan, Exceptions are as noted - HPI HPI: 09/03/18 18:03 68 yo female saw her urologist today and she has a ureteral stent in place. She had complaint of some hematuria She already has an appt with the urologist for stent removal this Sunday - Medical Decision Making 09/03/18 19:23 Dr Reyna was covering for Dr Gastelum and said that if she has no fever and her labs are unremarkable,the plan is for her to keep her appt with her urologist later this week 09/03/18 19:24 cbc is wnl inr=1.90 basic chemistry unremarkable 09/03/18 19:49 UA ++rbc, no UTI imp ureteral stent/coumadin/mild hematuria/ hbg abd hct at baseline plan keep urology appt this week w Dr Person <Margarita Reyna - Last Filed: 09/03/18 19:50> Attestations - Attestations 09/03/18 18:06 Documentation prepared by Savi Guthrie, acting as diploma medical assistant for Margarita Reyna MD <Savi Guthrie - Last Filed: 09/03/18 18:06>
[2018-09-03 18:38] LABS: BASO % 1.9 % (0-2.0); EOS % 3.2 % (0-4.5); HEMATOCRIT 36.6 % (32.4-45.2); HEMOGLOBIN 12.1 GM/dL (10.7-15.3); LYMPH % 49.6 % (8-40); MCH 27.7 pg (25.7-33.7); MCHC 33.2 g/dl (32.0-36.0); MEAN CELL VOLUME 83.5 fl (80-96); MEAN PLT VOLUME 7.8 fl (7.5-11.1); MONO % 7.9 % (3.8-10.2); NEUT % 37.4 % (42.8-82.8); PLATELET COUNT 373 K/MM3 (134-434); RBC 4.39 M/mm3 (3.60-5.2); RDW 16.2 % (11.6-15.6); WHITE BLOOD COUNT 8.6 K/mm3 (4.0-10.0)
[2018-09-03 18:53] LABS: INR 1.9 (0.83-1.09); PROTHROMBIN TIME (PATIENT) 22.6 SEC (9.7-13.0)
[2018-09-03 18:56] LABS: ACTIVATED PTT 31.1 SECONDS (25.2-36.5)
[2018-09-03 19:01] LABS: ANION GAP 7 MMOL/L (8-16); BLOOD UREA NITROGEN 21 mg/dL (7-18); CALCIUM 9.1 mg/dL (8.5-10.1); CHLORIDE 108 mmol/L (98-107); CO2 28 mmol/L (21-32); CREATININE 0.9 mg/dL (0.55-1.3); GLUCOSE,RANDOM 82 mg/dL (74-106); SODIUM 142 mmol/L (136-145)
[2018-09-03 19:11] LABS: URINE APPEARANCE SLCLOUDY; URINE BILIRUBIN NEGATIVE (<2.0 mg/dL); URINE COLOR LTYELLOW; URINE GLUCOSE (UA) NEGATIVE (NEGATIVE); URINE KETONE NEGATIVE (NEGATIVE); URINE LEUK ESTERASE TRACE (NEGATIVE); URINE NITRITE NEGATIVE (NEGATIVE); URINE PROTEIN 2+ (NEGATIVE); URINE UROBILINOGEN NEGATIVE mg/dL (0.2-1.0)
--- NOTE | 2018-09-03 19:22 | PDOC ---
*Physical Exam - Vital Signs Last Vital Signs Temp Pulse Resp BP Pulse Ox 98.2 F 82 16 127/60 99 09/03/18 16:00 09/03/18 16:00 09/03/18 16:00 09/03/18 16:00 09/03/18 19:05 ED Treatment Course - LABORATORY CBC & Chemistry Diagram: 09/03/18 18:00 09/03/18 18:00 - ADDITIONAL ORDERS Additional order review: Laboratory Results 09/03/18 09/03/18 18:00 18:00 PT with INR 22.60 H INR 1.90 H PTT (Actin FS) 31.1 Sodium 142 Potassium 4.0 Chloride 108 H Carbon Dioxide 28 Anion Gap 7 L BUN 21 H Creatinine 0.9 Creat Clearance w eGFR > 60 Random Glucose 82 Calcium 9.1 09/03/18 18:00 RBC 4.39 MCV 83.5 MCHC 33.2 RDW 16.2 H MPV 7.8 D Neutrophils % 37.4 L D Lymphocytes % 49.6 H D Monocytes % 7.9 Eosinophils % 3.2 Basophils % 1.9 Medical Decision Making - Medical Decision Making 09/03/18 19:[address] Rivas. Patient is 68F here today with hematuria, was cleared by urology today, presenting to ED after concerns about three days of blood in urine. Patient appears well, CBC normal. Pending CMP, UA. CMP normal. Pending UA. 09/03/18 19:57 UA shows blood, no signs of infection. *DC/Admit/Observation/Transfer Diagnosis at time of Disposition: Hematuria - Discharge Dispostion Disposition: HOME Condition at time of disposition: Good Decision to Admit order: No - Referrals Referrals: Kobe Lopez MD [Primary Care Provider] - - Patient Instructions Printed Discharge Instructions: DI for Hematuria Additional Instructions: Please follow up with your primary care doctor and urologist this week. Please return if you have any new, worsening or concerning symptoms, especially increasing pain and fever. - Post Discharge Activity
[2018-09-03 19:26] LABS: URINE MUCUS RARE
== END 2018-09-03 20:41 | disposition home or self-care (01) ==
LOC: JER 15:55
DX: R31.9 Hematuria, unspecified (principal); I10 Essential (primary) hypertension; E11.9 Type 2 diabetes mellitus without complications; Z79.4 Long term (current) use of insulin; Z79.84 Long term (current) use of oral hypoglycemic drugs; E03.9 Hypothyroidism, unspecified; Z86.718 Personal history of other venous thrombosis and embolism; Z79.01 Long term (current) use of anticoagulants; Z87.442 Personal history of urinary calculi; Z96.0 Presence of urogenital implants; F41.8 Other specified anxiety disorders; F41.0 Panic disorder [episodic paroxysmal anxiety]
CPT/HCPCS: 36415; 80048; 81003; 81015; 85025; 85610; 85730; 99282-25

== ENCOUNTER 2018-09-06 12:25 | Day surgery (SDC) | payer BC, OTHER ==
[2018-09-05 19:17] VITALS: BMI 29.9
[2018-09-06] MEDS ORDERED: ACETAMINOPHEN 1000 MG/100 ML VIAL (NON FORMULARY) IVPB ONE (15:50)
--- NOTE | 2018-09-06 15:50 | HP ---
History & Physical Update - History History: No Change - Physical Physical: No Change - Assessment Assessment: No Change - Plan Plan: No Change
[2018-09-06] MEDS ORDERED: IBUPROFEN 800 MG/8 ML IJ IVPB SCH (16:00)
[2018-09-06] MEDS ORDERED: PROPOFOL 20 ML ONE (16:41)
[2018-09-06] MEDS ORDERED: SODIUM CHLORIDE 0.9% P/F 10 ML VIAL IJ ONE (16:42)
[2018-09-06] MEDS ORDERED: ceFAZolin SODIUM 1 GM VIAL ONE (16:42)
[2018-09-06] MEDS ORDERED: DEXAMETHASONE SOD PHOSPHATE 4 MG/1 ML VIAL ONE (16:42)
[2018-09-06] MEDS ORDERED: ceFAZolin SODIUM 1 GM VIAL IVPB ONE (16:55)
[2018-09-06] MEDS ORDERED: oxyCODONE HCL 5 MG TABLET PO PRN (17:25)
[2018-09-06] MEDS ORDERED: ONDANSETRON 4 MG/2 ML VIAL IVPUSH PRN (17:25)
[2018-09-06] MEDS ORDERED: PROMETHAZINE HCL 25 MG/1 ML VIAL IVPUSH PRN (17:25)
[2018-09-06] MEDS ORDERED: LACTATED RINGERS SOLUTION 1,000 ML IV SCH (17:30)
[2018-09-06] MEDS ORDERED: ACETAMINOPHEN INJECTION 100 ML IVPB ONE (18:02)
[2018-09-06 19:28] VITALS: BP 131/74; PULSE 76; TEMP 97.8
--- NOTE | 2018-09-07 08:54 | OP ---
DATE OF OPERATION: 09/06/2018 PREOPERATIVE DIAGNOSIS: Left ureteral calculus. POSTOPERATIVE DIAGNOSIS: Left ureteral calculus. PROCEDURE: Left ureteroscopy, laser lithotripsy, retrograde pyelogram, and left ureteral stent removal. SURGEON: Axel Doyle MD FINDINGS: A large obstructing stone in the mid left ureter. SPECIMEN: Old stent. PREOPERATIVE INDICATIONS: The patient is a 68-year-old female who was admitted with urosepsis in June. She had an urgent stent placement and was sent home on antibiotics. She now comes back for completion of the procedure for ureteroscopy, laser lithotripsy. DESCRIPTION OF PROCEDURE: The patient was brought to the OR, placed on the table in the supine position, given general anesthesia and IV antibiotics, and placed in the modified lithotomy position. The groin was prepped and draped sterilely. Time-out was performed. Cystoscopy was performed. Stent was seen emerging from the left ureteral orifice. It was grasped with the grasping forceps and bought out through the urethral meatus. A wire was passed up into the left kidney under fluoroscopic guidance. Stent was removed. A rigid ureteroscope was passed the wire. The ureter was dilated from the previous stent insertion, and the scope was easily passed up to the point of the mid ureter where the large stone was seen. The stone appeared to be approximately 15 mm in length. Using the Holmium Laser Fiber, the stone was broken up into small passable fragments. Finally, retrograde pyelogram was then performed which revealed no further filling defects. Survey of the entire ureter revealed no stones too large to pass, no evidence of any injuries. Patient was requested that she not have a stent postoperatively unless it was needed because of severe pain while having the stent in place. There was no evidence of any tightening, large stones, or ureteral injuries. So, the stent was not replaced. Bladder was emptied. The patient was woken up. AXEL DOYLE M.D. [id number]
--- NOTE | 2018-09-11 09:49 | PATH ---
Surgical Pathology Report Patient Name: BLADE BRICEÑO Med. Rec. #: [id number] /Age/Gender: 1950 (Age: 68) / F Account: [id number] Location: [facility] Taken: 09/06/2018 Received: 09/10/2018 Reported: 09/11/2018 Physicians: Axel Doyle M.D. Specimen(s) Received LEFT URETERAL STENT Clinical History Left ureteral stone Final Diagnosis URETERAL STENT, LEFT, REMOVAL: URETERAL STENT. MACROSCOPIC DIAGNOSIS. Electronically Signed Fang Zapata M.D. Gross Description Received fresh labeled "left ureteral stent," is a 35 cm in length yellow-green, coiled portion of tubing, consistent with a ureteral stent. No soft tissue is present. No sections are submitted, gross only. 09/10/201809/10/2018
== END 2018-09-06 19:39 | disposition home or self-care (01) ==
LOC: JASU-SURG 12:25
PROVIDERS: ATTEND Urology
PROC: 0TC78ZZ Extirpation of Matter from Left Ureter, Via Natural or Artificial Opening Endoscopic (ICD-10-PCS; principal; 2018-09-06 14:30)
PROC: BT1FYZZ Fluoroscopy of Left Kidney, Ureter and Bladder using Other Contrast (ICD-10-PCS; 2018-09-06 14:30)
DX: N20.1 Calculus of ureter (principal); I10 Essential (primary) hypertension; E11.9 Type 2 diabetes mellitus without complications; Z79.84 Long term (current) use of oral hypoglycemic drugs
CPT/HCPCS: 82962; 88300-TC; 94760; J0131

== ENCOUNTER 2018-11-03 17:19 | Emergency (ER) | payer BC, OTHER ==
--- NOTE | 2018-11-03 17:29 | PDOC ---
History of Present Illness - General Chief Complaint: Pain Stated Complaint: PAIN LEFT RIB AREA Time Seen by Provider: 11/03/18 17:28 Past History - Past Medical History Allergies/Adverse Reactions: Allergies Allergy/AdvReac Type Severity Reaction Status Date / Time glimepiride Allergy Rash Verified 09/06/18 13:12 Home Medications: Ambulatory Orders Amlodipine Besylate 10 mg PO DAILY 10/17/16 Insulin Aspart Prot/Insuln Asp [Novolog Mix 70-30 Flexpen Syrn] 20 unit SQ BID 10/17/16 metFORMIN HCL [Metformin ER Osmotic] 1,000 mg PO BID 10/17/16 Gabapentin 300 mg PO TID 12/13/16 Levothyroxine [Synthroid -] 50 mcg PO DAILY 07/04/18 Warfarin Sodium 3 mg PO DAILY 09/03/18 Anemia: No Asthma: No Cancer: No Cardiac Disorders: No CVA: No COPD: No CHF: No DVT: Yes (left) Dementia: No Diabetes: Yes GI Disorders: No Disorders: No HTN: Yes Hypercholesterolemia: Yes Kidney Stones: Yes Liver Disease: No Psychiatric Problems: Yes (ANXIETY, DEPRESSION, PANIC ATTACKS.) Seizures: No Thyroid Disease: Yes (hypo) - Surgical History Abdominal Surgery: Yes (lt f.tube cyst) Appendectomy: No Cardiac Surgery: No Cholecystectomy: No Lung Surgery: No Neurologic Surgery: No Orthopedic Surgery: Yes (toe surgery) - Reproductive History Cervical CA: No Dysfunctional Uterine Bleeding: No Ectopic : No Endometrial CA: No Polycystic Ovaries: No Therapeutic (s) & number: No Tubal Ligation: No - Immunization History Immunization Up to Date: No - Suicide/Smoking/Psychosocial Hx Smoking Status: Yes Smoking History: Never smoked Have you smoked in the past 12 months: No Number of Cigarettes Smoked Daily: 0 If you are a former smoker, when did you quit?: 10yrs Information on smoking cessation initiated: No Hx Alcohol Use: No Drug/Substance Use Hx: No Substance Use Type: None Hx Substance Use Treatment: No *Physical Exam - Vital Signs Last Vital Signs Temp Pulse Resp BP Pulse Ox 98 F 78 16 180/92 H 100 11/03/18 17:20 11/03/18 17:20 11/03/18 17:20 11/03/18 17:20 11/03/18 17:20
[2018-11-03 17:32] VITALS: TEMP 98; BMI 31.8
--- NOTE | 2018-11-03 17:52 | PDOC ---
History of Present Illness - General Chief Complaint: Pain Stated Complaint: PAIN LEFT RIB AREA Time Seen by Provider: 11/03/18 17:28 History Source: Patient, Primary Care Provider - History of Present Illness Initial Comments: 11/03/18 17:49 Pt is a 68yo F with PMH of DVT (on Warfarin), IDDM, HTN, HLD, Anemia, Hypothyroidism, Left Adrenal Mass, Kidney Stones BIBA for sudden onset L abdominal/chest pain. Pt states she was eating around 1 hour ago and developed sharp intermittent pain underneath the breast and sternum. She also has isolated pains in the back as well. Has not had pain like this before. Pt also reports some difficulty breathing since this AM. Denies n/v/d, constipation, fevers, chills, palpitations, cough, headache, hematuria, dysuria. PMD: Harman Corcoran PMH: see hpi PSH: ureteral stents Meds: see med rec Allergies: glimepiride Past History - Past Medical History Allergies/Adverse Reactions: Allergies Allergy/AdvReac Type Severity Reaction Status Date / Time glimepiride Allergy Rash Verified 09/06/18 13:12 Home Medications: Ambulatory Orders Amlodipine Besylate 10 mg PO DAILY 10/17/16 Insulin Aspart Prot/Insuln Asp [Novolog Mix 70-30 Flexpen Syrn] 20 unit SQ BID 10/17/16 metFORMIN HCL [Metformin ER Osmotic] 1,000 mg PO BID 10/17/16 Gabapentin 300 mg PO TID 12/13/16 Levothyroxine [Synthroid -] 50 mcg PO DAILY 07/04/18 Warfarin Sodium 3 mg PO DAILY 09/03/18 Anemia: No Asthma: No Cancer: No Cardiac Disorders: No CVA: No COPD: No CHF: No DVT: Yes (left) Dementia: No Diabetes: Yes GI Disorders: No Disorders: No HTN: Yes Hypercholesterolemia: Yes Kidney Stones: Yes Liver Disease: No Psychiatric Problems: Yes (ANXIETY, DEPRESSION, PANIC ATTACKS.) Seizures: No Thyroid Disease: Yes (hypo) - Surgical History Abdominal Surgery: Yes (lt f.tube cyst) Appendectomy: No Cardiac Surgery: No Cholecystectomy: No Lung Surgery: No Neurologic Surgery: No Orthopedic Surgery: Yes (toe surgery) - Reproductive History Cervical CA: No Dysfunctional Uterine Bleeding: No Ectopic : No Endometrial CA: No Polycystic Ovaries: No Therapeutic (s) & number: No Tubal Ligation: No - Immunization History Immunization Up to Date: No - Suicide/Smoking/Psychosocial Hx Smoking Status: Yes Smoking History: Never smoked Have you smoked in the past 12 months: No Number of Cigarettes Smoked Daily: 0 If you are a former smoker, when did you quit?: 10yrs Information on smoking cessation initiated: No Hx Alcohol Use: No Drug/Substance Use Hx: No Substance Use Type: None Hx Substance Use Treatment: No Review of Systems - Review of Systems Constitutional: No: Chills, Fever, Weakness HEENTM: No: Symptoms Reported Respiratory: Yes: See HPI, Shortness of Breath. No: Cough, Productive cough, Hemoptysis Cardiac (ROS): Yes: See HPI, Chest Pain. No: Lightheadedness, Palpitations, Syncope, Chest Tightness ABD/GI: Yes: See HPI, Abdominal cramping. No: Constipated, Diarrhea, Nausea, Vomiting, Indigestion : No: Burning, Dysuria Musculoskeletal: No: Back Pain, Joint Pain, Muscle Pain Integumentary: No: Symptoms Reported Neurological: No: Headache, Numbness, Tingling *Physical Exam - Vital Signs Last Vital Signs Temp Pulse Resp BP Pulse Ox 98 F 78 16 180/92 H 100 11/03/18 17:20 11/03/18 17:20 11/03/18 17:20 11/03/18 17:20 11/03/18 17:20 - Physical Exam General Appearance: Yes: Nourished, Appropriately Dressed, Mild Distress HEENT: positive: EOMI, SATINDER, Normal ENT Inspection Neck: positive: Trachea midline, Supple. negative: Lymphadenopathy (R), Lymphadenopathy (L) Respiratory/Chest: positive: Lungs Clear, Normal Breath Sounds. negative: Accessory Muscle Use, Crackles, Wheezing Cardiovascular: positive: Regular Rhythm, Regular Rate, S1, S2. negative: Edema , JVD, Murmur Vascular Pulses: Carotid (R): 2+, Carotid (L): 2+, Dorsalis-Pedis (R): 2+, Doralis-Pedis (L): 2+ Gastrointestinal/Abdominal: positive: Normal Bowel Sounds, Tender (LUQ tenderness). negative: Protuberent, Distended, Rebound Musculoskeletal: negative: CVA Tenderness, Muscle Spasm, Vertebral Tenderness Extremity: positive: Normal Capillary Refill, Pelvis Stable. negative: Swelling , Calf Tenderness Integumentary: positive: Normal Color, Dry, Warm Neurologic: positive: automobile tester II-XII NML intact, Fully Oriented, Alert, Normal Mood/ Affect, Normal Response, Motor Strength 11/24 ED Treatment Course - LABORATORY CBC & Chemistry Diagram: 11/03/18 18:07 11/03/18 18:07 Medical Decision Making - Medical Decision Making 11/03/18 22:48 Pt is a 68yo F with PMH of DVT (on Warfarin), IDDM, HTN, HLD, Anemia, Hypothyroidism, Left Adrenal Mass, Kidney Stones BIBA for sudden onset L abdominal/chest pain. Pt states she was eating around 1 hour ago and developed sharp intermittent pain underneath the breast and sternum. She also has isolated pains in the back as well. Has not had pain like this before. Pt also reports some difficulty breathing since this AM. Denies n/v/d, constipation, fevers, chills, palpitations, cough, headache, hematuria, dysuria. Vitals: slight htn PE: LUQ tenderness v. chest at L lower ribcage. Lungs CTA. no spinal tenderness Ddx includes but not limited to atypical acs, colitis, nephrolithiasis, pyelonephritis, pancreatitis, MSK, mass/malignancy, electrolyte/metabolic abnormality, PE, dissection, AAA -labs, coags -ekg, cxr -tylenol, fluids EKG: nsr at 79, no shelby or depressions. slight T wafe flat aVL and III. OH 198, QTc 419. normal axis. labs significant for INR 1.2 (subtherapeutic). Will order CTA to r/o PE with image including abdomen below diaphragm to look for abdominal pathology Pt feeling better after tylenol however still has pain when she moves. No changes in medications. Has been taking 3mg Coumadin for "years". will call pmd. logistics loss prevention manager for PMD suggested that nothing acute needs to be done at this time. She should follow up with PMD. If she is on Coumadin, she should be getting INR checks at office. Upon reevaluation, pt states she is not in any pain. Pt is hemodynamically stable, no signs of PE, safe for DC home. Has pmd f/u. Given return precautions. *DC/Admit/Observation/Transfer Diagnosis at time of Disposition: Supratherapeutic INR Abdominal pain Qualifiers: Abdominal location: left upper quadrant Qualified Code(s): R10.12 - Left upper quadrant pain - Discharge Dispostion Disposition: HOME Condition at time of disposition: Good Decision to Admit order: No - Referrals Referrals: Harman Corcoran MD [Primary Care Provider] - - Patient Instructions Additional Instructions: You were seen in the emergency room today for pain near the ribcage. Your tests showed that your INR was 1.21 which is low. I recommend making an appointment with your doctor to discuss the INR. I do not know the exact cause of your pain, but it could be musculoskeletal. The CT scan was normal. You cant take Tylenol for the pain as needed. Please make an appointment with Dr. Corcoran discussing your INR this week. Come back to the emergency room if pain gets worse, you have a difficult time breathing, you pass out, you have chest pain or if any new concerning symptom develops. Thank you - Post Discharge Activity
[2018-11-03] MEDS ORDERED: ACETAMINOPHEN 1000 MG/100 ML VIAL (NON FORMULARY) IVPB ONE (17:53)
[2018-11-03] MEDS ORDERED: SODIUM CHLORIDE 1,000 ML IV STA (17:53)
--- NOTE | 2018-11-03 18:04 | PDOC ---
Attending Attestation - Resident Resident Name: HellenDona - ED Attending Attestation I have performed the following: I have examined & evaluated the patient, The case was reviewed & discussed with the resident, I agree w/resident's findings & plan, Exceptions are as noted - HPI HPI: 11/03/18 18:57 The patient is a 68 year old female with PMH of DVT (on Warfarin), IDDM, HTN, HLD, anemia, hypothyroidism, left adrenal mass, and kidney stones who presents for evaluation of left sided abdominal/rib pain that began 1 hour ago after eating. Patient describes the left sided side pain as intermittent, lasting for a few minutse at a time, and nonpleuritic. Denies any alleviating or exacerbating factors but notes sometimes it does come with movement. No recent trauama/heavy lifting. Patient also admits to sharp back pain a few hours prior to nset of this pain earlier today. Patient states her symptoms today are different from her kidney stones in the past. The patient denies chest pain, headache and dizziness. Denies fever, chills, nausea, vomit, diarrhea and constipation. Denies dysuria, frequency, urgency and hematuria. Allergies: glimepiride PMD: Maria Isabel PSH: ureteral stents " 11/03/18 18:57 - Physicial Exam PE: 11/03/18 18:28 GENERAL: The patient is awake, alert, and fully oriented, Nontoxic - in no acute distress. HEAD: Normocephalic, atraumatic. EYES: extraocular movements intact, sclera anicteric, conjunctiva clear. ENT: Normal voice, Moist mucous membranes. NECK: Normal range of motion, supple LUNGS: Breath sounds equal, clear to auscultation bilaterally. No wheezes, no rhonchi, no rales. HEART: Regular rate and rhythm, normal S1 and S2 without murmur, rub or gallop. ABDOMEN: Soft, nontender, No guarding, no rebound. . No CVA tenderness EXTREMITIES: Normal range of motion, no edema. No clubbing or cyanosis. No cords, erythema, or tenderness. NEUROLOGICAL: No facial assymetry, Normal speech, PSYCH: Normal mood, normal affect. SKIN: Warm, Dry, normal turgor, - Medical Decision Making 11/03/18 18:03 ddx - kidney stones, gastritis, msk pain, pancreatitis, gall stones, consider acs will obtain labs pt currently pain free ua to r/o hematuria, uti will reassess 11/03/18 23:16 pts labs noted for subtherapeutic INR, r/o PE with CTA as pt notes some pleuritic cp/back pain earlier pt feeling improved ct negative for pathology abd soft nontender no further pain suspect may be msk in nature due to worsening with movement return precautions were discussed Heart Score/ECG Review - ECG Impressions Comment:: 11/03/18 18:28 Twelve-lead EKG was performed and reviewed by me. There is normal sinus rhythm with a normal rate. Rate of 88 The axis is normal. The intervals are normal. There is normal R wave progression There are no ST or T wave abnormalities. Impression: Normal twelve-lead EKG
[2018-11-03] MEDS ORDERED: ACETAMINOPHEN 325 MG TABLET (FP) ONE (18:21)
[2018-11-03] MEDS ORDERED: ACETAMINOPHEN 500 MG TABLET (FP) PO ONE (18:28)
[2018-11-03 18:29] LABS: BASO % 0.3 % (0-2.0); EOS % 3.8 % (0-4.5); HEMATOCRIT 36.2 % (32.4-45.2); HEMOGLOBIN 11.9 GM/dL (10.7-15.3); LYMPH % 42.8 % (8-40); MCH 27.7 pg (25.7-33.7); MCHC 32.7 g/dl (32.0-36.0); MEAN CELL VOLUME 84.7 fl (80-96); MEAN PLT VOLUME 8.4 fl (7.5-11.1); MONO % 7.7 % (3.8-10.2); NEUT % 45.4 % (42.8-82.8); PLATELET COUNT 359 K/MM3 (134-434); RBC 4.28 M/mm3 (3.60-5.2)
[2018-11-03 18:44] LABS: INR 1.21 (0.83-1.09); PROTHROMBIN TIME (PATIENT) 14.3 SEC (9.7-13.0)
[2018-11-03 18:48] LABS: LIPASE 205 U/L (73-393)
[2018-11-03 18:51] LABS: ALBUMIN 3.5 g/dl (3.4-5.0); ALK PHOS 76 U/L (45-117); ANION GAP 7 MMOL/L (8-16); BILIRUBIN,TOTAL 0.4 mg/dL (0.2-1); BLOOD UREA NITROGEN 19 mg/dL (7-18); CALCIUM 8.7 mg/dL (8.5-10.1); CHLORIDE 104 mmol/L (98-107); CO2 25 mmol/L (21-32); CREATININE 0.8 mg/dL (0.55-1.3); GLUCOSE,RANDOM 121 mg/dL (74-106); MAGNESIUM 1.7 mg/dL (1.8-2.4); POTASSIUM 4.9 mmol/L (3.5-5.1); SGOT/AST 30 U/L (15-37); SGPT/ALT 23 U/L (13-61); SODIUM 137 mmol/L (136-145); TOT PROT 7.6 g/dl (6.4-8.2)
[2018-11-03 21:00] LABS: EPI CELLS 0.8 /HPF (0-5/HPF); URINE APPEARANCE CLEAR; URINE BACTERIA 8.6 /hpf (NEGATIVE); URINE BILIRUBIN NEGATIVE (NEGATIVE); URINE CASTS 3 /hpf (0-8); URINE COLOR YELLOW; URINE GLUCOSE (UA) NEGATIVE (NEGATIVE); URINE KETONE NEGATIVE (NEGATIVE); URINE LEUK ESTERASE TRACE (NEGATIVE); URINE NITRITE NEGATIVE (NEGATIVE); URINE PROTEIN NEGATIVE (NEGATIVE); URINE RBC 1 /hpf (0-4); URINE WBC 5 /hpf (0-5)
[2018-11-03 23:54] VITALS: BP 167/79; PULSE 79
--- NOTE | 2018-11-04 10:30 | EKG ---
Test Reason : Blood Pressure : / mmHG Vent. Rate : 079 BPM Atrial Rate : 079 BPM P-R Int : 198 ms QRS Dur : 086 ms QT Int : 366 ms P-R-T Axes : 049 008 047 degrees QTc Int : 419 ms POOR DATA QUALITY, INTERPRETATION MAY BE ADVERSELY AFFECTED NORMAL SINUS RHYTHM NORMAL ECG WHEN COMPARED WITH ECG OF 13-DEC-2016 12:32, NO SIGNIFICANT CHANGE WAS FOUND Confirmed by LELE DALAL MD ([id number]) on 11/04/2018 10:30:09 AM Referred By: Confirmed By:ELLE DALAL MD
== END 2018-11-03 23:54 | disposition home or self-care (01) ==
LOC: JER 17:19
PROC: 3E0337Z Introduction of Electrolytic and Water Balance Substance into Peripheral Vein, Percutaneous Approach (ICD-10-PCS; principal; 2018-11-03)
DX: D68.8 Other specified coagulation defects (principal); R10.12 Left upper quadrant pain; I10 Essential (primary) hypertension; E11.9 Type 2 diabetes mellitus without complications; Z79.4 Long term (current) use of insulin; E78.5 Hyperlipidemia, unspecified; E03.9 Hypothyroidism, unspecified; D64.9 Anemia, unspecified; Z86.718 Personal history of other venous thrombosis and embolism; Z79.01 Long term (current) use of anticoagulants; Z87.442 Personal history of urinary calculi
CPT/HCPCS: 36415; 71045-TC-FY; 71275-TC; 80053; 81003; 83690; 83735; 84484; 85025; 85610; 93005; 93010; 96360; 99283-25; J7030

== ENCOUNTER 2019-05-14 11:11 | Emergency (ER) | payer MEDICARE, OTHER ==
[2019-05-14 11:20] VITALS: BP 121/76; PULSE 116; TEMP 98.1; BMI 29.4
--- NOTE | 2019-05-14 12:10 | PDOC ---
*Physical Exam - Vital Signs Last Vital Signs Temp Pulse Resp BP Pulse Ox 98.1 F 116 H 18 121/76 99 05/14/19 11:17 05/14/19 11:17 05/14/19 11:17 05/14/19 11:17 05/14/19 11:17 - Physical Exam Comments: 05/14/19 12:10 The patient was examined by [BRISEIDA Austin] under my direct supervision. I personally evaluated the patient. I concur with the above findings and the plan of care. Discharge - Discharge Information Problems reviewed: Yes Clinical Impression/Diagnosis: Excessive salivation Condition: Good Disposition: HOME - Follow up/Referral Referrals: Harman Corcoran MD [Primary Care Provider] - - Patient Discharge Instructions Additional Instructions: There is no evidence of bleeding Please follow up with your cashier self service gasoline Please follow-up with your GI doctor at already scheduled appointment - Post Discharge Activity
--- NOTE | 2019-05-14 13:15 | PDOC ---
History of Present Illness - General Chief Complaint: Nausea Stated Complaint: SIDE AFFECT OF MEDS Time Seen by Provider: 05/14/19 11:56 History Source: Patient - History of Present Illness Timing/Duration: other (3 months ago) Past History - Past Medical History Allergies/Adverse Reactions: Allergies Allergy/AdvReac Type Severity Reaction Status Date / Time glimepiride Allergy Rash Verified 05/14/19 11:20 Home Medications: Ambulatory Orders Amlodipine Besylate 10 mg PO DAILY 10/17/16 metFORMIN HCL [Metformin ER Osmotic] 1,000 mg PO BID 10/17/16 Levothyroxine [Synthroid -] 100 mcg PO DAILY 07/04/18 Apixaban [Eliquis] 2.5 mg PO BID 05/14/19 Atorvastatin Ca [Lipitor] 40 mg PO HS 05/14/19 Insulin (Novolog 70/30) [Novolog Mix 70/30 Vial] 20 ml SQ BID 05/14/19 Anemia: No Asthma: No Cancer: No Cardiac Disorders: No CVA: No COPD: No CHF: No DVT: Yes (left) Dementia: No Diabetes: Yes GI Disorders: No Disorders: No HTN: Yes Hypercholesterolemia: Yes Kidney Stones: Yes Liver Disease: No Psychiatric Problems: Yes (ANXIETY, DEPRESSION, PANIC ATTACKS.) Seizures: No Thyroid Disease: Yes (hypo) Other medical history: B/L LEG DVTS - Surgical History Abdominal Surgery: Yes (lt f.tube cyst) Appendectomy: No Cardiac Surgery: No Cholecystectomy: No Lung Surgery: No Neurologic Surgery: No Orthopedic Surgery: Yes (toe surgery) - Reproductive History Cervical CA: No Dysfunctional Uterine Bleeding: No Ectopic : No Endometrial CA: No Polycystic Ovaries: No Therapeutic (s) & number: No Tubal Ligation: No - Immunization History Immunization Up to Date: No - Psycho Social/Smoking Cessation Hx Smoking Status: Yes Smoking History: Never smoked Have you smoked in the past 12 months: No Number of Cigarettes Smoked Daily: 0 If you are a former smoker, when did you quit?: 10yrs Information on smoking cessation initiated: No Hx Alcohol Use: No Drug/Substance Use Hx: No Substance Use Type: None Hx Substance Use Treatment: No Review of Systems - Review of Systems Constitutional: No: Chills, Fever Respiratory: No: Shortness of Breath, Hemoptysis Cardiac (ROS): No: Chest Pain ABD/GI: No: Blood Streaked Bowels, Rectal Bleeding, Tarry Stools Neurological: No: Headache, Dizziness *Physical Exam - Vital Signs Last Vital Signs Temp Pulse Resp BP Pulse Ox 98.1 F 116 H 18 121/76 99 05/14/19 11:17 05/14/19 11:17 05/14/19 11:17 05/14/19 11:17 05/14/19 11:17 - Physical Exam General Appearance: Yes: Appropriately Dressed. No: Apparent Distress HEENT: positive: Normal Voice, Pharynx Normal, Other. negative: Scleral Icterus (R), Scleral Icterus (L) Neck: positive: Supple Respiratory/Chest: negative: Respiratory Distress Gastrointestinal/Abdominal: positive: Soft Integumentary: positive: Dry, Warm Neurologic: positive: Fully Oriented, Alert, Normal Mood/Affect Medical Decision Making - Medical Decision Making 05/14/19 13:09 68 yo F, h/o HTN, HLD, IDDM, on eliquis s/p b/l LE DVT 3 months ago, here c/o excessive saliva only when she removes her dentures. Pt suspects this is related to her eliquis as symptoms started after taking meds and never had sxs pror to that. States when saliva enters her stomach she sometimes get nauseous. No vomiting, abdominal pain, change in bowel movements, fever or chills. States she has discussed this with her container finishing inspector who referred her to dental who she has not yet seen. Did go to another ER for symptoms couple days ago and was referred to GI. States she has appointment coming up on May 29 . Pt well-appearing here w/ rpt HR 99, was 116 at triage, unremarkable exam. No intervention needed in ED. Will dc to follow-up with GI for further evaluation Discharge - Discharge Information Problems reviewed: Yes Clinical Impression/Diagnosis: Excessive salivation Disposition: HOME - Follow up/Referral Referrals: Harman Corcoran MD [Primary Care Provider] - - Patient Discharge Instructions Additional Instructions: There is no evidence of bleeding Please follow up with your container finishing inspector Please follow-up with your GI doctor at already scheduled appointment - Post Discharge Activity
== END 2019-05-14 13:12 | disposition home or self-care (01) ==
LOC: JER 11:11
DX: K11.7 Disturbances of salivary secretion (principal); I10 Essential (primary) hypertension; E78.5 Hyperlipidemia, unspecified; E11.9 Type 2 diabetes mellitus without complications; Z79.01 Long term (current) use of anticoagulants; Z86.718 Personal history of other venous thrombosis and embolism; Z88.8 Allergy status to other drugs, medicaments and biological substances
CPT/HCPCS: 99281-25

== ENCOUNTER 2019-07-18 12:42 | Emergency (ER) | payer MEDICARE, OTHER ==
[2019-07-18 12:46] VITALS: BMI 29.4
--- NOTE | 2019-07-18 13:15 | PDOC ---
History of Present Illness - General Chief Complaint: Pain Stated Complaint: SWELLING RT HAND Time Seen by Provider: 07/18/19 13:15 Past History - Past Medical History Allergies/Adverse Reactions: Allergies Allergy/AdvReac Type Severity Reaction Status Date / Time glimepiride Allergy Rash Verified 07/18/19 12:47 Home Medications: Ambulatory Orders Amlodipine Besylate 10 mg PO DAILY 10/17/16 metFORMIN HCL [Metformin ER Osmotic] 1,000 mg PO BID 10/17/16 Levothyroxine [Synthroid -] 100 mcg PO DAILY 07/04/18 Apixaban [Eliquis] 2.5 mg PO BID 05/14/19 Atorvastatin Ca [Lipitor] 40 mg PO HS 05/14/19 Insulin (Novolog 70/30) [Novolog Mix 70/30 Vial] 20 ml SQ BID 05/14/19 Anemia: No Asthma: No Cancer: No Cardiac Disorders: No CVA: No COPD: No CHF: No DVT: Yes (left) Dementia: No Diabetes: Yes GI Disorders: No Disorders: No HTN: Yes Hypercholesterolemia: Yes Kidney Stones: Yes Liver Disease: No Psychiatric Problems: Yes (ANXIETY, DEPRESSION, PANIC ATTACKS.) Seizures: No Thyroid Disease: Yes (hypo) - Surgical History Abdominal Surgery: Yes (lt f.tube cyst) Appendectomy: No Cardiac Surgery: No Cholecystectomy: No Lung Surgery: No Neurologic Surgery: No Orthopedic Surgery: Yes (toe surgery) - Reproductive History Cervical CA: No Dysfunctional Uterine Bleeding: No Ectopic : No Endometrial CA: No Polycystic Ovaries: No Therapeutic (s) & number: No Tubal Ligation: No - Immunization History Immunization Up to Date: No - Psycho Social/Smoking Cessation Hx Smoking Status: Yes Smoking History: Never smoked Have you smoked in the past 12 months: No Number of Cigarettes Smoked Daily: 0 If you are a former smoker, when did you quit?: 10yrs Hx Alcohol Use: No Drug/Substance Use Hx: No Substance Use Type: None Hx Substance Use Treatment: No *Physical Exam - Vital Signs Last Vital Signs Temp Pulse Resp BP Pulse Ox 98 F 100 H 18 145/66 98 07/18/19 12:44 07/18/19 12:44 07/18/19 12:44 07/18/19 12:44 07/18/19 12:44 Discharge - Follow up/Referral Referrals: Kobe Lopez MD [Primary Care Provider] - - Patient Discharge Instructions - Post Discharge Activity
--- NOTE | 2019-07-18 14:03 | PDOC ---
History of Present Illness - General Chief Complaint: Pain Stated Complaint: SWELLING RT HAND Time Seen by Provider: 07/18/19 13:15 - History of Present Illness Initial Comments: 07/18/19 13:58 CHIEF COMPLAINT: right hand swelling HISTORY OF PRESENT ILLNESS: 69 yo F with hx of HTN, HLD, IDDM and DVTs (on Coumadin) presents to ED with pain to R hand. Patient initially felt pain after "flipping a pork" she was making for Michael dinner, and overnight she felt the pain and swelling get worse. Patient denies any trauma or injury to hand, denies any fever, chills, N/V/D. PCP: Dr. Kobe Lopez No recent travel or sick contacts. PAST MEDICAL HISTORY: Denies past medical history FAMILY HISTORY: Denies SOCIAL HISTORY: Denies tobacco, alcohol, illicit drug use. SURGICAL HISTORY: Denies ALLERGIES: No known drug allergies REVIEW OF SYSTEMS General/Constitutional: Denies fever or chills. Denies weakness, weight change. HEENT: Denies change in vision. Denies ear pain or discharge. Denies sore throat. Cardiovascular: Denies chest pain or shortness of breath. Respiratory: Denies cough, wheezing, or hemoptysis. Gastrointestinal: Denies nausea, vomiting, diarrhea or constipation. Denies rectal bleeding. Genitourinary: Denies dysuria, frequency, or change in urination. Musculoskeletal: Denies joint or muscle swelling or pain. Denies neck or back pain. Skin: Redness and swelling to R hand with sensation "tingling and pins and needles." Denies rash or easy bruising. Neurologic: Denies headache, vertigo, loss of consciousness, or loss of sensation. Psychiatric: Denies depression or anxiety. PHYSICAL EXAM General Appearance: Well-appearing, appropriately dressed. No apparent distress , no intoxication. HEENT: EOMI, PERRLA, normal ENT inspection, normal voice, TMs normal, pharynx normal. No conjunctival pallor. No photophobia, scleral icterus. Neck: Supple. Trachea midline. No tenderness, rigidity, carotid bruit, stridor , lymphadenopathy, or thyromegaly. Respiratory/Chest: Lungs CTAB. No shortness of breath, chest tenderness, respiratory distress, accessory muscle use. No crackles, rales, rhonchi, stridor , wheezing, dullness Cardiovascular: RRR. S1, S2. No JVD, murmur, bradycardia, tachycardia. Vascular Pulses: Dorsalis-Pedis (R): 2+, Dorsalis-Pedis (L): 2+ Gastrointestinal/Abdominal: Normal bowel sounds. Abdomen soft, non-distended. No tenderness or rebound tenderness. No organomegaly, pulsatile mass, guarding , hernia, hepatomegaly, splenomegaly. Lymphatic: No adenopathy, tenderness. Musculoskeletal/Extremities: Normal inspection. FROM of all extremities, normal capillary refill. Pelvis Stable. No CVA tenderness. No tenderness to extremities, pedal edema, swelling, erythema or deformity. Integumentary: Tenderness, erythema, and mild edema to R hand/wrist. Appropriate color, dry, warm. No cyanosis, erythema, jaundice or rash Neurologic: compensation specialist II-XII intact. Fully oriented, alert. Appropriate mood/affect. Motor strength 5/5. No appreciable EOM palsy, facial droop or sensory deficit. 07/18/19 14:50 Past History - Past Medical History Allergies/Adverse Reactions: Allergies Allergy/AdvReac Type Severity Reaction Status Date / Time glimepiride Allergy Rash Verified 07/18/19 12:47 Home Medications: Ambulatory Orders Amlodipine Besylate 10 mg PO DAILY 10/17/16 metFORMIN HCL [Metformin ER Osmotic] 1,000 mg PO BID 10/17/16 Levothyroxine [Synthroid -] 100 mcg PO DAILY 07/04/18 Apixaban [Eliquis] 2.5 mg PO BID 05/14/19 Atorvastatin Ca [Lipitor] 40 mg PO HS 05/14/19 Insulin (Novolog 70/30) [Novolog Mix 70/30 Vial] 20 ml SQ BID 05/14/19 Anemia: No Asthma: No Cancer: No Cardiac Disorders: No CVA: No COPD: No CHF: No DVT: Yes (left) Dementia: No Diabetes: Yes GI Disorders: No Disorders: No HTN: Yes Hypercholesterolemia: Yes Kidney Stones: Yes Liver Disease: No Psychiatric Problems: Yes (ANXIETY, DEPRESSION, PANIC ATTACKS.) Seizures: No Thyroid Disease: Yes (hypo) - Surgical History Abdominal Surgery: Yes (lt f.tube cyst) Appendectomy: No Cardiac Surgery: No Cholecystectomy: No Lung Surgery: No Neurologic Surgery: No Orthopedic Surgery: Yes (toe surgery) - Reproductive History Cervical CA: No Dysfunctional Uterine Bleeding: No Ectopic : No Endometrial CA: No Polycystic Ovaries: No Therapeutic (s) & number: No Tubal Ligation: No - Immunization History Immunization Up to Date: No - Psycho Social/Smoking Cessation Hx Smoking Status: Yes Smoking History: Never smoked Have you smoked in the past 12 months: No Number of Cigarettes Smoked Daily: 0 If you are a former smoker, when did you quit?: 10yrs Hx Alcohol Use: No Drug/Substance Use Hx: No Substance Use Type: None Hx Substance Use Treatment: No *Physical Exam - Vital Signs Last Vital Signs Temp Pulse Resp BP Pulse Ox 98 F 100 H 18 145/66 98 07/18/19 12:44 07/18/19 12:44 07/18/19 12:44 07/18/19 12:44 07/18/19 12:44 ED Treatment Course - LABORATORY CBC & Chemistry Diagram: 07/18/19 14:50 07/18/19 14:50 Medical Decision Making - Medical Decision Making 07/18/19 14:01 69 yo F with hx of HTN, HLD, IDDM and DVTs (on Coumadin) presents to ED with pain, redness, and swelling to R hand. -labs -XR 07/18/19 15:26 WBC 12.9. Given hx of diabetes and rapid progression of erythema in 2 days, will cover with IV abx. -[facility] Discharge - Discharge Information Problems reviewed: Yes Clinical Impression/Diagnosis: Cellulitis of hand, right Condition: Stable Disposition: HOME - Admission No - Follow up/Referral Referrals: Kobe Lopez MD [Primary Care Provider] - - Patient Discharge Instructions Patient Printed Discharge Instructions: DI for Cellulitis -- Adult Additional Instructions: Please follow-up with your primary care doctor within the next week for continued monitoring of your symptoms. If you develop any fever, chills, nausea , vomiting, diarrhea or worsening of the redness or swelling to your right hand , please return to the ER. - Post Discharge Activity
[2019-07-18 15:15] LABS: BASO % 1.6 % (0-2.0); EOS % 1.7 % (0-4.5); HEMATOCRIT 35.7 % (32.4-45.2); HEMOGLOBIN 11.6 GM/dL (10.7-15.3); LYMPH % 32.3 % (8-40); MCH 26.7 pg (25.7-33.7); MCHC 32.5 g/dl (32.0-36.0); MEAN CELL VOLUME 82.1 fl (80-96); MEAN PLT VOLUME 8.2 fl (7.5-11.1); MONO % 7.9 % (3.8-10.2); NEUT % 56.5 % (42.8-82.8); PLATELET COUNT 367 K/MM3 (134-434); RBC 4.35 M/mm3 (3.60-5.2); WHITE BLOOD COUNT 12.9 K/mm3 (4.0-10.0)
[2019-07-18] MEDS ORDERED: DALBAVANCIN HCL 1,500 MG in DEXTROSE 5%-WATER - 500 ML IVPB ONE ×3 (15:26→17:51)
[2019-07-18 15:42] LABS: ALBUMIN 3.8 g/dl (3.4-5.0); BILIRUBIN,TOTAL 0.6 mg/dL (0.2-1); BLOOD UREA NITROGEN 21.4 mg/dL (7-18); CALCIUM 9.3 mg/dL (8.5-10.1); CREATININE 0.9 mg/dL (0.55-1.3); POTASSIUM 4.2 mmol/L (3.5-5.1)
[2019-07-18] MEDS ORDERED: SODIUM CHLORIDE 0.9% 500 ML INFUS.BAG IV ONE (15:47)
[2019-07-18] MEDS ORDERED: PIPERACILLIN/TAZOB 4.5 GM 4.5 GM/100 ML BAG IVPB ONE (16:15)
[2019-07-18] MEDS ORDERED: PIPERACILLIN/TAZOB 3.375 GM 3.375 GM in DEXTROSE 5%-WATER - 50 ML IVPB ONE (16:15)
[2019-07-18 19:44] VITALS: BP 159/69; PULSE 95; TEMP 97.6
== END 2019-07-18 19:40 | disposition home or self-care (01) ==
LOC: JERFT 12:42 → JER 12:42
DX: L03.113 Cellulitis of right upper limb (principal); I10 Essential (primary) hypertension; E78.5 Hyperlipidemia, unspecified; E11.9 Type 2 diabetes mellitus without complications; Z79.4 Long term (current) use of insulin; Z86.718 Personal history of other venous thrombosis and embolism; Z79.01 Long term (current) use of anticoagulants; Z88.8 Allergy status to other drugs, medicaments and biological substances
CPT/HCPCS: 36415; 73110-TC-RT-FY; 73130-TC-RT-FY; 80053; 85025; 87040; 99282-25; J0875

== ENCOUNTER 2020-12-27 05:52 | Day surgery (SDC) | payer MEDICARE, OTHER ==
[2020-12-23 09:24] VITALS: BMI 30.4
[2020-12-27 06:57] VITALS: BP 136/60; PULSE 82; TEMP 98.2
[2020-12-27] MEDS ORDERED: SODIUM CHLORIDE 0.9% P/F 10 ML VIAL IJ ONE (07:06)
[2020-12-27] MEDS ORDERED: BUPIVACAINE HCL 50 ML ONE (07:06)
[2020-12-27] MEDS ORDERED: BUPIVACAINE LIPOSOME/PF (EXPAREL) 266 MG/20 ML VIAL ONE (07:06)
[2020-12-27] MEDS ORDERED: MIDAZOLAM HCL 2 MG/2 ML SINGLE DOSE VIAL ONE (07:06)
[2020-12-27] MEDS ORDERED: VANCOMYCIN 1,000 MG VIAL (RESTRICTED TO ID ONLY) ONE (07:08)
[2020-12-27] MEDS ORDERED: LIDOCAINE HCL 1%, 10 MG/ML (20ML VIAL) ONE (07:18)
[2020-12-27] MEDS ORDERED: TRANEXAMIC ACID 1000 MG/10 ML VIAL ONE (07:18)
[2020-12-27] MEDS ORDERED: KETOROLAC TROMETHAMINE 30 MG/1 ML VIAL ONE (07:19)
[2020-12-27] MEDS ORDERED: DEXAMETHASONE SOD PHOSPHATE 4 MG/1 ML VIAL ONE (07:19)
[2020-12-27] MEDS ORDERED: ONDANSETRON 4 MG/2 ML VIAL ONE (07:19)
[2020-12-27] MEDS ORDERED: BUPIVICAINE 0.25%/MORPH PF/KETOROLAC - 51ML DISP.SYRINGE IA ONE (09:43)
== END 2020-12-27 10:00 | disposition home or self-care (01) | DRG 554 ==
LOC: UNDOADMIN 05:52 → FASUSAT 05:52 → FM/S 05:52 → FASU 05:52 → EDSTATUS 08:30 → FASUSAT 10:00 → UNDODISIN 10:00
PROVIDERS: ATTEND Orthopaedic Surgery Sports Medicine
PROC: 0SRC0J9 Replacement of Right Knee Joint with Synthetic Substitute, Cemented, Open Approach (ICD-10-PCS; principal; 2020-12-27)
DX: M17.11 Unilateral primary osteoarthritis, right knee (principal); Z53.09 Procedure and treatment not carried out because of other contraindication
CPT/HCPCS: 82962

== ENCOUNTER 2021-02-14 05:55 | Inpatient (IN) | payer MEDICARE, OTHER ==
[2021-02-08 11:29] VITALS: BMI 30.4
[2021-02-14] MEDS ORDERED: BUPIVACAINE LIPOSOME/PF (EXPAREL) 266 MG/20 ML VIAL ONE (07:08)
[2021-02-14] MEDS ORDERED: MIDAZOLAM HCL 2 MG/2 ML SINGLE DOSE VIAL ONE (07:08)
[2021-02-14] MEDS ORDERED: BUPIVACAINE HCL/PF 0.5% (5MG/ML) 10 ML VIAL ONE ×2 (07:09→08:04)
[2021-02-14] MEDS ORDERED: SODIUM CHLORIDE 0.9% P/F 10 ML VIAL IJ ONE (07:09)
[2021-02-14] MEDS ORDERED: VANCOMYCIN 1,000 MG VIAL (RESTRICTED TO ID ONLY) ONE (07:13)
[2021-02-14] MEDS ORDERED: TRANEXAMIC ACID 1000 MG/10 ML VIAL ONE (08:31)
[2021-02-14] MEDS ORDERED: SUCCINYLCHOLINE CHLORIDE 200 MG/10 ML SYRINGE ONE (08:31)
[2021-02-14] MEDS ORDERED: ceFAZolin SODIUM 1 GM VIAL ONE (08:31)
[2021-02-14] MEDS ORDERED: DEXAMETHASONE SOD PHOSPHATE 4 MG/1 ML VIAL ONE (08:36)
[2021-02-14] MEDS ORDERED: ONDANSETRON 4 MG/2 ML VIAL ONE (08:36)
[2021-02-14] MEDS ORDERED: PHENYLEPHRINE HCL 10 MG/1 ML SINGLE DOSE VIAL ONE (09:03)
[2021-02-14] MEDS ORDERED: BUPIVICAINE 0.25%/MORPH PF/KETOROLAC - 51ML DISP.SYRINGE IA ONE ×3 (09:23→10:39)
[2021-02-14] MEDS ORDERED: ONDANSETRON 4 MG/2 ML VIAL IVPUSH PRN ×2 (09:36→11:09)
[2021-02-14] MEDS ORDERED: oxyCODONE HCL 5 MG TABLET PO PRN ×2 (09:36)
[2021-02-14] MEDS ORDERED: LACTATED RINGERS SOLUTION 1,000 ML IV SCH ×2 (09:45→11:15)
[2021-02-14] MEDS ORDERED: PROPOFOL 20 ML ONE (09:49)
[2021-02-14] MEDS ORDERED: MAG HYDROX/AL HYDROX/SIMETH 30 ML UNIT-DOSE CUP PO PRN (11:09)
[2021-02-14] MEDS ORDERED: ACETAMINOPHEN 325 MG TABLET (FP) PO SCH ×2 (12:00→16:54)
[2021-02-14] MEDS: CEFAZOLIN 2 GM/D5W 2 GM/50 ML ML IVPB SCH ×2 (16:57→23:55)
[2021-02-14] MEDS: INSULIN SLIDING SCALE (NOVOLOG) 1 VIAL SQ SCH (21:14)
[2021-02-14] MEDS: GABAPENTIN 300 MG CAPSULE PO SCH (21:15)
[2021-02-14] MEDS: oxyCODONE HCL 10 MG SUSTAINED ACTING TABLET PO SCH (21:15)
[2021-02-14] MEDS: SENNOSIDES/DOCUSATE COMBO (SENNA PLUS) TABLET (UD) PO SCH (21:16)
[2021-02-14] MEDS ORDERED: CYCLOBENZAPRINE HCL 10 MG TABLET (FP) PO PRN (22:00)
[2021-02-14] MEDS: ACETAMINOPHEN 500 MG TABLET (FP) PO SCH (22:44)
[2021-02-15] MEDS: ACETAMINOPHEN 500 MG TABLET (FP) PO SCH ×4 (05:38→22:12)
[2021-02-15] MEDS: LEVOTHYROXINE NA 125 MCG TABLET (FP) PO SCH (06:02)
[2021-02-15] MEDS: INSULIN SLIDING SCALE (NOVOLOG) 1 VIAL SQ SCH ×4 (06:33→22:13)
[2021-02-15 07:58] LABS: CALCIUM 8.2 mg/dl (8.5-10); CREATININE 0.8 mg/dl (0.55-1.3); MAGNESIUM 1.5 mg/dL (1.8-2.4)
[2021-02-15 08:08] LABS: HEMATOCRIT 30.4 % (32.4-45.2); MCH 27.6 pg (25.7-33.7); MCHC 32.8 g/dl (32.0-36.0); MEAN CELL VOLUME 84.2 fl (80-96); MEAN PLT VOLUME 8.4 fl (7.5-11.1); PLATELET COUNT 374 10^3/uL (134-434); RBC 3.61 M/mm3 (3.60-5.2); RDW 14.8 % (11.6-15.6); WHITE BLOOD COUNT 10.7 K/mm3 (4.0-10.8)
[2021-02-15] MEDS ORDERED: MAGNESIUM 2GM/50ML STERILE WATER IVPB IVPB ONE (09:15)
[2021-02-15] MEDS: CEFAZOLIN 2 GM/D5W 2 GM/50 ML ML IVPB SCH (09:32)
[2021-02-15] MEDS: SENNOSIDES/DOCUSATE COMBO (SENNA PLUS) TABLET (UD) PO SCH ×2 (09:33→21:15)
[2021-02-15] MEDS: GABAPENTIN 300 MG CAPSULE PO SCH ×2 (09:33→21:15)
[2021-02-15] MEDS: MULTIVITAMINS (DAILY MVI) TABLET (FP) PO SCH (09:34)
[2021-02-15] MEDS: RIVAROXABAN 10 MG TABLET PO SCH (09:34)
[2021-02-15] MEDS: PANTOPRAZOLE 40 MG TABLET PO SCH (09:34)
[2021-02-15] MEDS: oxyCODONE HCL 10 MG SUSTAINED ACTING TABLET PO SCH ×2 (09:35→21:15)
[2021-02-15] MEDS: amLODIPine BESYLATE 10 MG TABLET (FP) PO SCH (09:35)
[2021-02-15] MEDS ORDERED: RIVAROXABAN 10 MG TABLET PO SCH (10:00)
[2021-02-15] MEDS ORDERED: ATORVASTATIN CA 40 MG TABLET (FP) PO SCH (22:00)
[2021-02-16] MEDS: ACETAMINOPHEN 500 MG TABLET (FP) PO SCH (05:12)
[2021-02-16] MEDS: LEVOTHYROXINE NA 125 MCG TABLET (FP) PO SCH (06:12)
[2021-02-16 06:46] VITALS: BP 116/51; PULSE 91; TEMP 99.4
[2021-02-16] MEDS: INSULIN SLIDING SCALE (NOVOLOG) 1 VIAL SQ SCH (06:46)
[2021-02-16 07:46] LABS: HEMATOCRIT 28.6 % (32.4-45.2); HEMOGLOBIN 9.5 GM/dl (10.7-15.3); MCH 27.7 pg (25.7-33.7); MCHC 33.3 g/dl (32.0-36.0); MEAN CELL VOLUME 83.3 fl (80-96); MEAN PLT VOLUME 8.6 fl (7.5-11.1); PLATELET COUNT 340 10^3/uL (134-434); RBC 3.43 M/mm3 (3.60-5.2); RDW 14.6 % (11.6-15.6); WHITE BLOOD COUNT 10.9 K/mm3 (4.0-10.8)
[2021-02-16] MEDS: oxyCODONE HCL 10 MG SUSTAINED ACTING TABLET PO SCH (09:31)
[2021-02-16] MEDS: GABAPENTIN 300 MG CAPSULE PO SCH (09:32)
[2021-02-16] MEDS: MULTIVITAMINS (DAILY MVI) TABLET (FP) PO SCH (09:32)
[2021-02-16] MEDS: PANTOPRAZOLE 40 MG TABLET PO SCH (09:32)
[2021-02-16] MEDS: SENNOSIDES/DOCUSATE COMBO (SENNA PLUS) TABLET (UD) PO SCH (09:32)
[2021-02-16] MEDS: amLODIPine BESYLATE 10 MG TABLET (FP) PO SCH (09:32)
[2021-02-16] MEDS: RIVAROXABAN 10 MG TABLET PO SCH (09:33)
== END 2021-02-16 13:54 | disposition home or self-care (01) | DRG 470 ==
LOC: FM/S 05:55
PROVIDERS: ADMIT Orthopaedic Surgery Sports Medicine; ATTEND Nurse Practitioner Acute Care
PROC: 0SRC0J9 Replacement of Right Knee Joint with Synthetic Substitute, Cemented, Open Approach (ICD-10-PCS; principal; 2021-02-14 08:51)
DX: M17.11 Unilateral primary osteoarthritis, right knee (principal); I10 Essential (primary) hypertension; E78.5 Hyperlipidemia, unspecified; E03.9 Hypothyroidism, unspecified; E11.9 Type 2 diabetes mellitus without complications; D50.9 Iron deficiency anemia, unspecified; F32.9 Major depressive disorder, single episode, unspecified; E83.42 Hypomagnesemia
CPT/HCPCS: 36415; 73560-TC-RT-FY; 80048; 82962; 83735; 85027; 88305-TC; 88311-TC; 94760; 97010-GP; 97116-GP; 97163-GP

== ENCOUNTER → 2023-01-24 | Day surgery (SDC) | payer MEDICARE, OTHER | END | disposition home or self-care (01) | LOC: JRADUS-SUR 10:57 | PROVIDERS: ATTEND Nurse Practitioner Family | PROC: 0H9U3ZX Drainage of Left Breast, Percutaneous Approach, Diagnostic (ICD-10-PCS; principal; 2023-01-24) | DX: D24.2 Benign neoplasm of left breast (principal) | CPT/HCPCS: 19083; 77065-TC; 87899; 88305-TC; A4648 ==

== ENCOUNTER 2023-09-16 14:59 | Emergency (ER) | payer MEDICARE, OTHER ==
[2023-09-16 15:18] VITALS: BMI 28.3
[2023-09-16] MEDS ORDERED: SUCRALFATE 1 GM TABLET (FP) ONE (16:44)
[2023-09-16] MEDS ORDERED: FAMOTIDINE 20 MG/50 ML IVPB 20 MG/50 ML MG IVPB ONE (16:44)
[2023-09-16] MEDS ORDERED: ACETAMINOPHEN INJECTION 100 ML IVPB ONE (16:44)
[2023-09-16] MEDS ORDERED: MAG HYDROX/AL HYDROX/SIMETH 30 ML UNIT-DOSE CUP ONE (16:44)
[2023-09-16] MEDS: SUCRALFATE 1 GM/10 ML UNIT DOSE CUPS PO ONE (17:00)
[2023-09-16] MEDS: ACETAMINOPHEN 1000 MG/100 ML BAG IVPB ONE (17:00)
[2023-09-16] MEDS: FAMOTIDINE 20 MG/50 ML IVPB 20 MG/50 ML MG IVPB ONE (17:00)
[2023-09-16] MEDS: SUCRALFATE 1 GM TABLET (FP) PO ONE (17:05)
[2023-09-16] MEDS: MAG HYDROX/AL HYDROX/SIMETH -MYLANTA- ORAL SUSPENSION PO ONE (17:05)
[2023-09-16 17:16] LABS: BASO % 0.4 % (0-2.0); EOS % 2.8 % (0-4.5); HEMATOCRIT 38.3 % (32.4-45.2); HEMOGLOBIN 12.8 GM/dL (10.7-15.3); LYMPH % 33.8 % (8-40); MCH 28.2 pg (25.7-33.7); MCHC 33.4 g/dl (32.0-36.0); MEAN CELL VOLUME 84.3 fl (80-96); MEAN PLT VOLUME 9.1 fl (7.5-11.1); MONO % 7.4 % (3.8-10.2); NEUT % 55.6 % (42.8-82.8); PLATELET COUNT 317 10^3/uL (134-434); RBC 4.55 M/mm3 (3.60-5.2); RDW 17.1 % (11.6-15.6); WHITE BLOOD COUNT 9.4 K/mm3 (4.0-10.0)
[2023-09-16 17:40] LABS: POTASSIUM 4.7 mmol/L (3.5-5.1)
[2023-09-16 17:42] LABS: ALBUMIN 4.2 g/dl (3.4-5.0); BLOOD UREA NITROGEN 22.4 mg/dL (7-18); CALCIUM 9.4 mg/dL (8.5-10.1); MAGNESIUM 1.3 mg/dL (1.8-2.4)
[2023-09-16 17:45] LABS: CREATININE 1.4 mg/dL (0.55-1.3)
[2023-09-16 17:46] LABS: BILIRUBIN,TOTAL 0.9 mg/dL (0.2-1); TOT PROT 8.2 g/dl (6.4-8.2)
[2023-09-16 18:01] LABS: EPI CELLS 20 /uL (0-25.1); HYALINE CASTS 4 /uL (0-3.1); PH,URINE 5.5 (5.0-8.0); URINE APPEARANCE CLEAR; URINE BACTERIA 32 /uL (0-1359); URINE BILIRUBIN NEGATIVE (NEGATIVE); URINE COLOR YELLOW; URINE GLUCOSE (UA) 2+ (NEGATIVE); URINE KETONE TRACE (NEGATIVE); URINE LEUK ESTERASE TRACE (NEGATIVE); URINE NITRITE NEGATIVE (NEGATIVE); URINE PROTEIN 1+ (NEGATIVE); URINE RBC 21 /uL (0-23.9); URINE WBC 40 /uL (0-25.8)
[2023-09-16 18:45] LABS: LACTIC ACID 2.2 mmol/L (0.4-2.0)
[2023-09-16] MEDS: LACTATED RINGERS SOLUTION 1000 ML INFUS.BAG IV ONE (18:57)
[2023-09-16 21:16] VITALS: BP 122/59; PULSE 64; RESP 20; TEMP 97.2
== END 2023-09-16 21:56 | disposition home or self-care (01) ==
LOC: JER 14:59
PROC: 3E033GC Introduction of Other Therapeutic Substance into Peripheral Vein, Percutaneous Approach (ICD-10-PCS; principal; 2023-09-16)
PROC: 3E033GC Introduction of Other Therapeutic Substance into Peripheral Vein, Percutaneous Approach (ICD-10-PCS; 2023-09-16)
DX: R10.11 Right upper quadrant pain (principal); R10.12 Left upper quadrant pain; R35.89 Other polyuria; N39.0 Urinary tract infection, site not specified
CPT/HCPCS: 36415; 71045-TC-FY; 76705-TC; 80053; 81003; 83605; 83735; 84484; 85025; 87077; 87086; 93005; 93010; 96365; 96375; 99285-25; J0131

== ENCOUNTER 2024-03-05 13:05 | Observation (INO) | payer MEDICARE, OTHER ==
[2024-03-05 13:10] VITALS: BMI 22.1
[2024-03-05] MEDS ORDERED: MAG HYDROX/AL HYDROX/SIMETH 30 ML UNIT-DOSE CUP ONE (14:35)
[2024-03-05] MEDS ORDERED: FAMOTIDINE 20 MG TABLET ONE (14:35)
[2024-03-05 14:36] LABS: BASO % 1.7 % (0-2.0); EOS % 1.7 % (0-4.5); HEMATOCRIT 40.9 % (32.4-45.2); HEMOGLOBIN 13.2 GM/dL (10.7-15.3); LYMPH % 40.9 % (8-40); MCH 26.6 pg (25.7-33.7); MCHC 32.3 g/dl (32.0-36.0); MEAN CELL VOLUME 82.6 fl (80-96); MEAN PLT VOLUME 8.3 fl (7.5-11.1); MONO % 7.2 % (3.8-10.2); NEUT % 48.5 % (42.8-82.8); PLATELET COUNT 248 10^3/uL (134-434); RBC 4.96 M/mm3 (3.60-5.2); WHITE BLOOD COUNT 7.9 K/mm3 (4.0-10.0)
[2024-03-05] MEDS: FAMOTIDINE 20 MG TABLET PO ONE (14:40)
[2024-03-05] MEDS: MAG HYDROX/AL HYDROX/SIMETH 30 ML UNIT-DOSE CUP PO ONE (14:40)
[2024-03-05 14:53] LABS: POTASSIUM 4.4 mmol/L (3.5-5.1)
[2024-03-05 14:55] LABS: CALCIUM 9.5 mg/dL (8.5-10.1)
[2024-03-05 14:56] LABS: ALBUMIN 4.1 g/dl (3.4-5.0); BLOOD UREA NITROGEN 19.9 mg/dL (7-18)
[2024-03-05 15:00] LABS: BILIRUBIN,TOTAL 0.4 mg/dL (0.2-1)
[2024-03-05 15:01] LABS: TOT PROT 7.8 g/dl (6.4-8.2)
[2024-03-05 15:22] LABS: EPI CELLS 12 /uL (0-25.1); HYALINE CASTS 2 /uL (0-3.1); PH,URINE 5.5 (5.0-8.0); URINE APPEARANCE CLEAR; URINE BACTERIA 1 /uL (0-1359); URINE BILIRUBIN NEGATIVE (NEGATIVE); URINE COLOR YELLOW; URINE GLUCOSE (UA) 3+ (NEGATIVE); URINE KETONE 1+ (NEGATIVE); URINE LEUK ESTERASE NEGATIVE (NEGATIVE); URINE NITRITE NEGATIVE (NEGATIVE); URINE PROTEIN 2+ (NEGATIVE); URINE RBC 29 /uL (0-23.9); URINE UROBILINOGEN 0.2 mg/dL (0.2-1.0); URINE WBC 17 /uL (0-25.8)
[2024-03-05] MEDS ORDERED: SUCRALFATE 1 GM TABLET (FP) ONE (16:46)
[2024-03-05] MEDS: SUCRALFATE 1 GM TABLET (FP) PO ONE (16:57)
[2024-03-05] MEDS ORDERED: ASPIRIN 81 MG CHEWABLE TABLETS ONE (18:34)
[2024-03-05] MEDS: ASPIRIN 81 MG CHEWABLE TABLETS PO ONE (18:41)
[2024-03-05] MEDS ORDERED: ASPIRIN COATED 81 MG TABLET.EC ONE (19:20)
[2024-03-05] MEDS: ASPIRIN COATED 81 MG TABLET.EC PO SCH (19:36)
[2024-03-05] MEDS: INSULIN ASPART SLIDING SCALE (NOVOLOG) 1 VIAL SQ SCH (23:00)
[2024-03-05] MEDS: FAMOTIDINE 10 MG TABLET PO SCH (23:00)
[2024-03-05] MEDS: hydrALAZINE HCL 10 MG TABLET PO ONE (23:39)
[2024-03-06] MEDS: LEVOTHYROXINE NA 112 MCG TABLET (FP) PO SCH (06:33)
[2024-03-06] MEDS: INSULIN (NOVOLOG MIX 70/30) 100 UNITS/ML MDV SQ SCH (06:33)
[2024-03-06 07:50] LABS: HEMOGLOBIN 13.6 GM/dL (10.7-15.3); MCH 27.2 pg (25.7-33.7); MCHC 32.3 g/dl (32.0-36.0); MEAN CELL VOLUME 84.2 fl (80-96); PLATELET COUNT 248 10^3/uL (134-434); RBC 4.99 M/mm3 (3.60-5.2); RDW 14.8 % (11.6-15.6); WHITE BLOOD COUNT 7.4 K/mm3 (4.0-10.0)
[2024-03-06] MEDS: MAG HYDROX/AL HYDROX/SIMETH 30 ML UNIT-DOSE CUP PO PRN (07:50)
[2024-03-06 08:14] LABS: POTASSIUM 4.2 mmol/L (3.5-5.1)
[2024-03-06 08:20] LABS: BLOOD UREA NITROGEN 21.1 mg/dL (7-18); CALCIUM 9.2 mg/dL (8.5-10.1); MAGNESIUM 1.7 mg/dL (1.8-2.4)
[2024-03-06 08:21] LABS: CHOLESTEROL 171 mg/dL (50-200)
[2024-03-06 08:23] LABS: CREATININE 0.9 mg/dL (0.55-1.3); LDL CHOLESTEROL (ONLY SJRH) 85 mg/dL (5-100)
[2024-03-06 08:25] LABS: BILIRUBIN,TOTAL 0.7 mg/dL (0.2-1); HDL CHOLESTEROL 63 mg/dL (40-60); TOT PROT 7.5 g/dl (6.4-8.2)
[2024-03-06 08:53] VITALS: BP 140/65; PULSE 71; RESP 18; TEMP 98.9
[2024-03-06] MEDS ORDERED: PANTOPRAZOLE 40 MG TABLET PO SCH ×2 (10:00→10:02)
[2024-03-06] MEDS: metoPROLOL SUCCINATE 25 MG TAB.SR.24H (FP) PO SCH (10:16)
[2024-03-06] MEDS: amLODIPine BESYLATE 10 MG TABLET (FP) PO SCH (10:17)
[2024-03-06] MEDS: RIVAROXABAN 10 MG TABLET PO SCH (10:17)
[2024-03-06] MEDS: METOCLOPRAMIDE HCL 10 MG TABLET (FP) PO SCH (10:21)
[2024-03-06] MEDS: POLYETHYLENE GLYCOL (HEALTHYLAX) 3350 17 GM PACKET PO SCH (10:22)
[2024-03-06] MEDS: SUCRALFATE 1 GM TABLET (FP) PO SCH (14:17)
[2024-03-06] MEDS ORDERED: MAGNESIUM OXIDE 400 MG TABLET (FP) PO ONE (14:21)
[2024-03-06 14:52] LABS: N-TERMINAL BNP 523.3 pg/ml (5-125)
[2024-03-06] MEDS ORDERED: ATORVASTATIN CA 40 MG TABLET (FP) PO SCH (22:00)
== END 2024-03-06 15:14 | disposition home or self-care (01) ==
LOC: JER 13:05 → JERBED 17:27 → J4W 21:13
PROVIDERS: ADMIT Internal Medicine; ATTEND Internal Medicine
DX: R10.13 Epigastric pain (principal); I25.10 Atherosclerotic heart disease of native coronary artery without angina pectoris; K22.70 Barrett's esophagus without dysplasia; R77.8 Other specified abnormalities of plasma proteins; E78.5 Hyperlipidemia, unspecified; N20.0 Calculus of kidney; Z79.01 Long term (current) use of anticoagulants; E11.9 Type 2 diabetes mellitus without complications; I11.9 Hypertensive heart disease without heart failure; K59.00 Constipation, unspecified; E03.9 Hypothyroidism, unspecified; K76.0 Fatty (change of) liver, not elsewhere classified; Z95.1 Presence of aortocoronary bypass graft; Z86.718 Personal history of other venous thrombosis and embolism; Z87.891 Personal history of nicotine dependence
CPT/HCPCS: 36415; 71045-TC-FY; 80053; 80061; 81003; 82962; 83036; 83690; 83735; 83880; 84443; 84484; 85025; 85027; 87086; 93005; 93010; 93306-TC; 99285-25; G0378

== ENCOUNTER 2024-06-13 10:00 | Emergency (ER) | payer OTHER ==
[2024-06-13 10:46] VITALS: RESP 18; TEMP 97.9; BMI 23.6
[2024-06-13 11:55] LABS: BASO % 2.6 % (0-2.0); EOS % 1.9 % (0-4.5); HEMATOCRIT 41.7 % (32.4-45.2); HEMOGLOBIN 13.1 GM/dL (10.7-15.3); LYMPH % 27.8 % (8-40); MCH 26.9 pg (25.7-33.7); MCHC 31.3 g/dl (32.0-36.0); MEAN CELL VOLUME 85.8 fl (80-96); MONO % 6.7 % (3.8-10.2); PLATELET COUNT 206 10^3/uL (134-434); RBC 4.86 M/mm3 (3.60-5.2); WHITE BLOOD COUNT 5.7 K/mm3 (4.0-10.0)
[2024-06-13 12:06] LABS: INR 1.86 (0.83-1.09)
[2024-06-13 12:08] LABS: ACTIVATED PTT 37.9 SECONDS (25.2-36.5)
[2024-06-13 12:13] LABS: POTASSIUM 4.3 mmol/L (3.5-5.1)
[2024-06-13 12:14] LABS: CALCIUM 9.6 mg/dL (8.5-10.1)
[2024-06-13 12:15] LABS: ALBUMIN 3.7 g/dl (3.4-5.0); BLOOD UREA NITROGEN 25.5 mg/dL (7-18); MAGNESIUM 1.3 mg/dL (1.8-2.4)
[2024-06-13 12:18] LABS: CREATININE 1.5 mg/dL (0.55-1.3)
[2024-06-13 12:19] LABS: BILIRUBIN,TOTAL 0.5 mg/dL (0.2-1)
[2024-06-13] MEDS ORDERED: ACETAMINOPHEN INJECTION 100 ML ONE (12:30)
[2024-06-13] MEDS ORDERED: MAGNESIUM SULFATE IN WATER 2 GM/50 ML IVPB IVPB ONE (12:31)
[2024-06-13] MEDS ORDERED: MAG HYDROX/AL HYDROX/SIMETH 30 ML UNIT-DOSE CUP ONE (12:31)
[2024-06-13] MEDS ORDERED: FAMOTIDINE 20 MG/50 ML IVPB 20 MG/50 ML MG IVPB ONE (12:31)
[2024-06-13] MEDS: ACETAMINOPHEN 1000 MG/100 ML BAG IVPB ONE (12:43)
[2024-06-13] MEDS: MAGNESIUM SULFATE IN WATER 2 GM/50 ML IVPB IVPB ONE (12:43)
[2024-06-13] MEDS: MAG HYDROX/AL HYDROX/SIMETH 30 ML UNIT-DOSE CUP PO ONE (12:43)
[2024-06-13] MEDS: SODIUM CHLORIDE 0.9% 500 ML INFUS.BAG IV ONE (12:43)
[2024-06-13] MEDS: FAMOTIDINE 20 MG/50 ML IVPB 20 MG/50 ML MG IVPB ONE (12:43)
[2024-06-13 13:28] LABS: HIV INTERPRETATION NEGATIVE (NEGATIVE)
[2024-06-13 14:38] VITALS: BP 157/72; PULSE 67
== END 2024-06-13 14:54 | disposition home or self-care (01) ==
LOC: JER 10:00
PROC: 3E033GC Introduction of Other Therapeutic Substance into Peripheral Vein, Percutaneous Approach (ICD-10-PCS; principal; 2024-06-13)
PROC: 3E033GC Introduction of Other Therapeutic Substance into Peripheral Vein, Percutaneous Approach (ICD-10-PCS; 2024-06-13)
PROC: 3E033NZ Introduction of Analgesics, Hypnotics, Sedatives into Peripheral Vein, Percutaneous Approach (ICD-10-PCS; 2024-06-13)
DX: R42 Dizziness and giddiness (principal); R10.13 Epigastric pain; F41.9 Anxiety disorder, unspecified; R26.81 Unsteadiness on feet; W01.198A Fall on same level from slipping, tripping and stumbling with subsequent striking against other object, initial encounter
CPT/HCPCS: 36415; 70450-TC; 71045-TC-FY; 80053; 82962; 83735; 84484; 85025; 85610; 85730; 86803; 87389; 93005; 93010; 96365; 96368; 96375; 99285-25; J0131

== ENCOUNTER 2024-09-22 11:21 | Emergency (ER) | payer MEDICARE, OTHER ==
[2024-09-22 11:37] VITALS: BMI 21.4
[2024-09-22 13:04] LABS: BASO % 2.4 % (0-2.0); EOS % 3.4 % (0-4.5); HEMATOCRIT 36.3 % (32.4-45.2); HEMOGLOBIN 12.2 GM/dL (10.7-15.3); LYMPH % 46.5 % (8-40); MCH 29.6 pg (25.7-33.7); MCHC 33.5 g/dl (32.0-36.0); MEAN CELL VOLUME 88.5 fl (80-96); MEAN PLT VOLUME 8.5 fl (7.5-11.1); MONO % 8.5 % (3.8-10.2); NEUT % 39.2 % (42.8-82.8); PLATELET COUNT 255 10^3/uL (134-434); RDW 16.8 % (11.6-15.6); WHITE BLOOD COUNT 3.6 K/mm3 (4.0-10.0)
[2024-09-22 13:15] LABS: INR 1.22 (0.83-1.09); PROTHROMBIN TIME (PATIENT) 13.3 SEC (9.7-13.0)
[2024-09-22 13:17] LABS: ACTIVATED PTT 29.3 SECONDS (25.2-36.5)
[2024-09-22] MEDS ORDERED: ASPIRIN 81 MG CHEWABLE TABLETS ONE (13:34)
[2024-09-22] MEDS: ASPIRIN 81 MG CHEWABLE TABLETS PO ONE (13:40)
[2024-09-22] MEDS: SODIUM CHLORIDE 1,000 ML IV STA (13:40)
[2024-09-22 13:56] LABS: EPI CELLS 7 /uL (0-25.1); HYALINE CASTS 1 /uL (0-3.1); URINE APPEARANCE CLEAR; URINE BACTERIA 9 /uL (0-1359); URINE BILIRUBIN NEGATIVE (NEGATIVE); URINE COLOR YELLOW; URINE GLUCOSE (UA) 2+ (NEGATIVE); URINE KETONE NEGATIVE (NEGATIVE); URINE LEUK ESTERASE NEGATIVE (NEGATIVE); URINE NITRITE NEGATIVE (NEGATIVE); URINE PROTEIN 1+ (NEGATIVE); URINE RBC 5 /uL (0-23.9); URINE UROBILINOGEN 0.2 mg/dL (0.2-1.0); URINE WBC 4 /uL (0-25.8)
[2024-09-22 14:06] LABS: POTASSIUM 4.7 mmol/L (3.5-5.1); SODIUM 137 mmol/L (136-145)
[2024-09-22 14:07] LABS: CALCIUM 9.1 mg/dL (8.5-10.1); CHLORIDE 106 mmol/L (98-107)
[2024-09-22 14:08] LABS: ALBUMIN 3.8 g/dl (3.4-5.0); ANION GAP 7 mmol/L (4-13); CO2 25 mmol/L (21-32); GLUCOSE,RANDOM 94 mg/dL (74-106)
[2024-09-22 14:11] LABS: SGOT/AST 29 U/L (15-37); SGPT/ALT 24 U/L (13-61)
[2024-09-22 14:13] LABS: BILIRUBIN,TOTAL 0.9 mg/dL (0.2-1); TOT PROT 7.4 g/dl (6.4-8.2)
[2024-09-22 14:15] LABS: ALK PHOS 42 U/L (45-117); CREATININE 1.3 mg/dL (0.55-1.3)
[2024-09-22 15:58] VITALS: RESP 18
[2024-09-22 18:36] VITALS: BP 139/81; PULSE 53; TEMP 97.6
== END 2024-09-22 20:46 | disposition left against medical advice (07) ==
LOC: JER 11:21
PROC: 3E0337Z Introduction of Electrolytic and Water Balance Substance into Peripheral Vein, Percutaneous Approach (ICD-10-PCS; principal; 2024-09-22)
DX: K59.00 Constipation, unspecified (principal); R79.89 Other specified abnormal findings of blood chemistry; R10.30 Lower abdominal pain, unspecified; K64.4 Residual hemorrhoidal skin tags
CPT/HCPCS: 36415; 74177-TC; 80053; 81003; 82550; 82553; 83605; 83690; 84484; 85025; 85610; 85730; 87086; 93005; 93010; 96360; 99285-25; Q9967

== ENCOUNTER 2024-10-11 13:42 | Emergency (ER) | payer MEDICARE, OTHER ==
[2024-10-11 14:27] VITALS: RESP 16; TEMP 99.1; BMI 27.5
[2024-10-11] MEDS: SODIUM PHOSPHATE/NA BIPHOS 133 ML ENEMA PR ONE (15:37)
[2024-10-11] MEDS: BISACODYL 5 MG TABLET.DR (FP) PO ONE (16:59)
[2024-10-11 19:56] VITALS: BP 110/70; PULSE 65
== END 2024-10-11 19:57 | disposition home or self-care (01) ==
LOC: JER 13:42
DX: K59.00 Constipation, unspecified (principal)
CPT/HCPCS: 99283-25

== ENCOUNTER 2024-11-17 14:07 | Inpatient (IN) | payer MEDICARE, OTHER ==
[2024-11-17 15:32] LABS: ABSOLUTE IMMATURE GRANULOCYTES 0.02 x10^3/uL (0.0-0.031); BASOPHILS # 0.04 x10^3/uL (0.01-0.08); EOSINOPHIL % 0.4 % (0.7-5.8); EOSINOPHILS # 0.02 x10^3/uL (0.04-0.36); HEMATOCRIT 40.8 % (34.1-44.9); MCHC 31.9 g/dl (32.2-35.5); MEAN PLT VOLUME 10.6 fl (9.4-12.3); MONOCYTE # 0.33 x10^3/uL (0.24-0.86); MONOCYTE % 7.1 % (4.7-12.5); PLATELET COUNT 177 x10^3/uL (182-369); RDW 13.6 % (12.4-16.6)
[2024-11-17 15:59] LABS: CHLORIDE 104 mmol/L (98-107); SODIUM 137 mmol/L (136-145)
[2024-11-17 16:01] LABS: BLOOD UREA NITROGEN 68.4 mg/dL (7-18); CALCIUM 8.6 mg/dL (8.5-10.1)
[2024-11-17 16:02] LABS: ALBUMIN 3.9 g/dl (3.4-5.0); CO2 16 mmol/L (21-32); GLUCOSE,RANDOM 53 mg/dL (74-106)
[2024-11-17 16:06] LABS: BILIRUBIN,TOTAL 0.5 mg/dL (0.2-1); CREATININE 3.6 mg/dL (0.55-1.3); SGOT/AST 36 U/L (15-37); SGPT/ALT 22 U/L (13-61); TOT PROT 7.4 g/dl (6.4-8.2)
[2024-11-17 16:08] LABS: ALK PHOS 42 U/L (45-117)
[2024-11-17 16:10] LABS: N-TERMINAL BNP 1876.2 pg/ml (5-125)
[2024-11-17 16:28] LABS: ANION GAP 17 mmol/L (4-13); POTASSIUM 6.3 mmol/L (3.5-5.1)
[2024-11-17] MEDS ORDERED: DEXTROSE 50%-WATER 25 GM/50 ML DISP.SYRIN ONE (16:33)
[2024-11-17] MEDS: DEXTROSE 50%-WATER - 25 GM/50 ML VIAL IVPUSH ONE (16:44)
[2024-11-17] MEDS ORDERED: CALCIUM GLUC IN NACL, ISO-OSM 1 GM/50 ML BAG IVPB ONE (17:24)
[2024-11-17] MEDS ORDERED: CALCIUM GLUCONATE 10% - 1,000 MG/10 ML VIAL ONE (17:29)
[2024-11-17] MEDS: CALCIUM GLUCONATE 10% - 1,000 MG/10 ML VIAL IVPB ONE (17:38)
[2024-11-17 17:53] LABS: POTASSIUM 5.9 mmol/L (3.5-5.1)
[2024-11-17 17:55] LABS: ALBUMIN 3.6 g/dl (3.4-5.0); BLOOD UREA NITROGEN 72.1 mg/dL (7-18); CALCIUM 8.2 mg/dL (8.5-10.1)
[2024-11-17 17:58] LABS: CREATININE 3.4 mg/dL (0.55-1.3)
[2024-11-17 18:00] LABS: BILIRUBIN,TOTAL 0.5 mg/dL (0.2-1)
[2024-11-17] MEDS: LACTATED RINGERS SOLUTION 1000 ML INFUS.BAG IV ONE (18:23)
[2024-11-17 19:03] LABS: EPI CELLS 4 /uL (0-25.1); HYALINE CASTS 0 /uL (0-3.1); PH,URINE 5.5 (5.0-8.0); URINE APPEARANCE CLOUDY; URINE BACTERIA 16 /uL (0-1359); URINE BILIRUBIN NEGATIVE (NEGATIVE); URINE COLOR YELLOW; URINE GLUCOSE (UA) 1+ (NEGATIVE); URINE KETONE TRACE (NEGATIVE); URINE LEUK ESTERASE 1+ (NEGATIVE); URINE NITRITE NEGATIVE (NEGATIVE); URINE PROTEIN 2+ (NEGATIVE); URINE RBC 98 /uL (0-23.9); URINE UROBILINOGEN 0.2 mg/dL (0.2-1.0); URINE WBC 47 /uL (0-25.8)
[2024-11-17] MEDS ORDERED: MAGNESIUM SULFATE IN WATER 2 GM/50 ML IVPB IVPB ONE (21:58)
[2024-11-17] MEDS: MAGNESIUM SULFATE IN WATER 2 GM/50 ML IVPB IVPB ONE (22:08)
[2024-11-17 22:48] LABS: POTASSIUM 4.5 mmol/L (3.5-5.1)
[2024-11-17 22:51] LABS: ALBUMIN 3.4 g/dl (3.4-5.0); BLOOD UREA NITROGEN 70.1 mg/dL (7-18); CALCIUM 8.6 mg/dL (8.5-10.1)
[2024-11-17 22:54] LABS: CREATININE 3.3 mg/dL (0.55-1.3)
[2024-11-17 22:55] LABS: BILIRUBIN,TOTAL 0.4 mg/dL (0.2-1); TOT PROT 6.4 g/dl (6.4-8.2)
[2024-11-18] MEDS ORDERED: DEXTROSE 5%-NORMAL SALINE 1,000 ML IV SCH (01:00)
[2024-11-18] MEDS: DEXTROSE 5%-NORMAL SALINE 1,000 ML IV SCH (01:24)
[2024-11-18] MEDS: DEXTROSE 50%-WATER 25 GM/50 ML DISP.SYRIN IVPUSH ONE (01:40)
[2024-11-18] MEDS ORDERED: DEXTROSE 50%-WATER 25 GM/50 ML DISP.SYRIN ONE (01:40)
[2024-11-18] MEDS: LEVOTHYROXINE NA 125 MCG TABLET (FP) PO SCH (06:06)
[2024-11-18] MEDS ORDERED: INSULIN ASPART SLIDING SCALE (NOVOLOG) 1 VIAL SQ SCH ×2 (07:00)
[2024-11-18] MEDS: metoPROLOL SUCCINATE 25 MG TAB.SR.24H (FP) PO SCH (09:34)
[2024-11-18 09:45] LABS: MCHC 33.2 g/dl (32.2-35.5); RDW 13.4 % (12.4-16.6)
[2024-11-18 09:54] LABS: HEMATOCRIT 32.2 % (34.1-44.9); HEMOGLOBIN 10.7 g/dL (11.2-15.7); MEAN PLT VOLUME 11.6 fl (9.4-12.3); PLATELET COUNT 159 x10^3/uL (182-369)
[2024-11-18 10:18] LABS: POTASSIUM 4.4 mmol/L (3.5-5.1)
[2024-11-18 10:52] LABS: BLOOD UREA NITROGEN 61.9 mg/dL (7-18); CALCIUM 8.2 mg/dL (8.5-10.1)
[2024-11-18 10:56] LABS: CREATININE 2.6 mg/dL (0.55-1.3)
[2024-11-18 10:57] LABS: BILIRUBIN,TOTAL 0.5 mg/dL (0.2-1); TOT PROT 5.8 g/dl (6.4-8.2)
[2024-11-18] MEDS: SENNOSIDES 8.6MG TABLET (FP) PO SCH (21:15)
[2024-11-18] MEDS: ATORVASTATIN CA 80 MG TABLET (FP) PO SCH (21:16)
[2024-11-19 09:14] LABS: HEMOGLOBIN 11.5 g/dL (11.2-15.7); MCHC 32.9 g/dl (32.2-35.5); MEAN CELL VOLUME 90.9 fl (79.4-94.8); MEAN PLT VOLUME 10.4 fl (9.4-12.3); PLATELET COUNT 162 x10^3/uL (182-369); RDW 13.4 % (12.4-16.6)
[2024-11-19 09:29] LABS: INR 1.17 (0.83-1.09); PROTHROMBIN TIME (PATIENT) 12.9 SEC (9.7-13.0)
[2024-11-19 09:32] LABS: ACTIVATED PTT 23.3 SECONDS (25.2-36.5)
[2024-11-19 09:44] LABS: POTASSIUM 3.7 mmol/L (3.5-5.1)
[2024-11-19 09:47] LABS: CALCIUM 8.5 mg/dL (8.5-10.1)
[2024-11-19 09:48] LABS: ALBUMIN 3.5 g/dl (3.4-5.0); MAGNESIUM 1.2 mg/dL (1.8-2.4)
[2024-11-19 09:49] LABS: BLOOD UREA NITROGEN 40.8 mg/dL (7-18)
[2024-11-19 09:52] LABS: CREATININE 1.8 mg/dL (0.55-1.3)
[2024-11-19 09:53] LABS: PHOSPHOROUS 1.9 mg/dL (2.5-4.9)
[2024-11-19 09:56] LABS: BILIRUBIN,TOTAL 0.6 mg/dL (0.2-1)
[2024-11-19 09:57] LABS: TOT PROT 6.3 g/dl (6.4-8.2)
[2024-11-19 14:39] VITALS: RESP 18
[2024-11-19 15:49] VITALS: BMI 19.5
[2024-11-19] MEDS ORDERED: MAGNESIUM SULF 50% (8.12 MEQ/2 ML-1 GM VIAL) IVPB ONE (16:06)
[2024-11-19] MEDS: NAPH,MB-DB/K PH,MBDB POWDER PACKET PO ONE (17:36)
[2024-11-19] MEDS: MAGNESIUM 2GM/50ML STERILE WATER IVPB IVPB ONE (17:43)
[2024-11-19] MEDS: MAGNESIUM OXIDE 400 MG TABLET (FP) PO SCH (21:43)
[2024-11-19] MEDS: HALOPERIDOL LACTATE 5 MG/ML IM ONE (22:26)
[2024-11-20 09:42] LABS: HEMATOCRIT 33.1 % (34.1-44.9); HEMOGLOBIN 11.2 g/dL (11.2-15.7); MCHC 33.8 g/dl (32.2-35.5); MEAN CELL VOLUME 89.2 fl (79.4-94.8); MEAN PLT VOLUME 11.1 fl (9.4-12.3); PLATELET COUNT 145 x10^3/uL (182-369); RDW 13.3 % (12.4-16.6)
[2024-11-20 10:23] LABS: CALCIUM 7.9 mg/dL (8.5-10.1)
[2024-11-20 10:24] LABS: ALBUMIN 3.3 g/dl (3.4-5.0); BLOOD UREA NITROGEN 33.8 mg/dL (7-18); MAGNESIUM 1.3 mg/dL (1.8-2.4)
[2024-11-20 10:27] LABS: BILIRUBIN,TOTAL 0.4 mg/dL (0.2-1)
[2024-11-20 10:28] LABS: TOT PROT 6.2 g/dl (6.4-8.2)
[2024-11-20] MEDS: FAMOTIDINE 20 MG TABLET PO PRN (10:29)
[2024-11-20] MEDS: THIAMINE 100 MG TABLET PO SCH (10:29)
[2024-11-20] MEDS: QUEtiapine FUMARATE 25 MG TABLET PO SCH (10:29)
[2024-11-20 10:56] LABS: CREATININE 1.5 mg/dL (0.55-1.3)
[2024-11-20] MEDS: MAGNESIUM OXIDE 400 MG TABLET (FP) PO SCH (18:21)
[2024-11-21 09:56] LABS: HEMATOCRIT 33.4 % (34.1-44.9); HEMOGLOBIN 11.1 g/dL (11.2-15.7); MCHC 33.2 g/dl (32.2-35.5); MEAN PLT VOLUME 11.1 fl (9.4-12.3); PLATELET COUNT 146 x10^3/uL (182-369); RDW 13.4 % (12.4-16.6)
[2024-11-21 10:05] VITALS: BP 123/62; PULSE 68; TEMP 97.7
[2024-11-21 10:47] LABS: POTASSIUM 3.6 mmol/L (3.5-5.1)
[2024-11-21 11:20] LABS: ALBUMIN 3.3 g/dl (3.4-5.0); BLOOD UREA NITROGEN 25.1 mg/dL (7-18); CALCIUM 8.1 mg/dL (8.5-10.1); MAGNESIUM 1.1 mg/dL (1.8-2.4)
[2024-11-21 11:23] LABS: CREATININE 1.3 mg/dL (0.55-1.3)
[2024-11-21 11:24] LABS: PHOSPHOROUS 2.3 mg/dL (2.5-4.9)
[2024-11-21 11:25] LABS: BILIRUBIN,TOTAL 0.6 mg/dL (0.2-1); TOT PROT 6.2 g/dl (6.4-8.2)
[2024-11-21] MEDS: MAGNESIUM 2GM/50ML STERILE WATER IVPB IVPB ONE (13:57)
[2024-11-21] MEDS: NAPH,MB-DB/K PH,MBDB POWDER PACKET PO ONE (14:32)
== END 2024-11-21 16:42 | DRG 698 ==
LOC: JER 14:07 → JERBED 19:53 → OBSVTOIN 22:10 → J5S 11-18 00:14
PROVIDERS: ADMIT Internal Medicine; ATTEND Internal Medicine
DX: N13.9 Obstructive and reflux uropathy, unspecified (principal); E43 Unspecified severe protein-calorie malnutrition; N13.0 Hydronephrosis with ureteropelvic junction obstruction; N17.9 Acute kidney failure, unspecified; R64 Cachexia; Z68.1 Body mass index [BMI] 19.9 or less, adult; L89.159 Pressure ulcer of sacral region, unspecified stage; I25.10 Atherosclerotic heart disease of native coronary artery without angina pectoris; I10 Essential (primary) hypertension; E78.5 Hyperlipidemia, unspecified; K59.00 Constipation, unspecified; E11.649 Type 2 diabetes mellitus with hypoglycemia without coma; I35.0 Nonrheumatic aortic (valve) stenosis
CPT/HCPCS: 0241U-QW; 36415; 70450-TC; 71045-TC-FY; 72125-TC; 72170-TC-FY; 76775-TC; 80053; 80061; 81003; 82570; 82962; 83036; 83735; 83880; 83935; 84100; 84300; 84436; 84443; 84484; 85025; 85027; 85610; 85730; 87086; 93005; 93010; 93306-TC; 97116-GP; 97161-GP; 99285-25; G0378